=== PATIENT | male | born 1950 | race Caucasian/White ===

== ENCOUNTER 2023-04-04 20:01 | Inpatient (IN) | payer MEDICARE, SELFPAY ==
[2023-04-04 15:07] LABS: % Basophils 0.2 % (0-2); % Immature Granulocytes 1.1 % (0-0.5); % Monocytes 4.7 % (1.7-9.3); Absolute Immature Granulocytes 0.1 10^3/uL (0-0.05); Absolute Lymphocytes 0.5 10^3/uL (1.2-3.4); Absolute Monocytes 0.4 10^3/uL (0.1-0.6); Absolute Neutrophils 7.3 10^3/uL (1.4-6.5); Hematocrit 26.4 % (39.0-52.0); Mean Corp Hgb Conc. 34.1 g/dL (33.0-37.0); Mean Corpuscular Hgb 27.3 pg (27.0-31.0); Nucleated Red Blood Cells % 0 % (-); Red Cell Dist. Width 16.4 % (11.5-14.5); White Blood Cell Count 8.3 10^3/uL (4.8-10.8)
[2023-04-04 15:32] LABS: ALT (SGPT) 36 U/L (0-50); AST (SGOT) 74 U/L (17-59); Albumin 2.7 g/dl (3.5-5.0); Alkaline Phosphatase 88 U/L (38-126); Blood Urea Nitrogen 51 mg/dl (9-20); Calcium 7.8 mg/dl (8.4-10.2); Carbon Dioxide 20 mmol/L (22-30); Chloride 102 mmol/L (98-107); Glucose 139 mg/dl (70-99); Lipase 185 U/L (23-300); Potassium 4.7 mmol/L (3.5-5.1); Sodium 128 mmol/L (135-145); Total Bilirubin 2.3 mg/dl (0.2-1.3); Total Protein 6.3 g/dl (6.3-8.2); eGFR 35.02
[2023-04-04 15:39] LABS: Mean Platelet Volume 12.6 fL (7.4-10.4); Platelet Count 68 10^3/uL (130-400)
--- NOTE | 2023-04-04 18:05 | ED.GENMED ---
History of Present Illness
General
Chief Complaint: Weakness
Source: patient and family
Time Seen by Provider: 04/04/23 17:42
Travel History
Have you had any contact with someone who has COVID-19?: No
Do you have any symptoms of coronavirus? Fever > 100 degrees, chills, cough, shortness of breath, sore throat, loss of taste or smell, muscle aches, or headache?: No
History of Present Illness
History of Present Illness:
72-year-old male with past medical history of hypertension, recently diagnosed hepatitis C presenting to the emergency department with daughter who states that patient has been getting progressively worse since December but over the last week he has
had worsening generalized weakness, fatigue, lightheadedness, persistent nausea and vomiting, very dark urine, headaches and poor p.o. intake. Patient is also been experiencing increased lower extremity rash. Saw GI last week and had further lab
work done and was told everything looked okay except for a low hemoglobin for which patient was given a prescription for iron and was scheduled to undergo continued outpatient monitoring. Daughter believes that patient's hep C was activated from
recent cortisone injections in December when the symptoms started stating that he has had chronic back issues and had 2 separate cortisone injections during this time. Patient has also noticed some increased paresthesia and radicular pain in the
bilateral lower extremities. He denies any fevers, chills, rigors, chest pain or shortness of breath.
Past History
Past History
ED Past Medical History: HTN and Other (Hep C)
ED Past Surgical History: None
Social History
Tobacco: Non-smoker
Alcohol: None
Drug: None
Personal:
Living: with family
Employment: Employed
Review of Systems
Review of Systems
All Other Systems: ROS reviewed and negative except as documented in HPI and ROS
Phy Exam
Physical Exam
Physical Exam:
GENERAL: Alert , in no apparent distress
EYE: clear conjunctiva b/l
HEAD: NCAT
ENT: o/p clr, mmm.
CARDIAC: Regular rate and rhythm, no murmur.
LUNGS: Clear breath sounds bilaterally, no acute respiratory distress, no wheezes/rales/rhonchi
ABDOMEN: Soft, without focal tenderness, no r/g, no cvat, no hepatosplenomegaly
Rectal exam: Light brown stool, heme-negative
NEUROLOGICAL: Alert and oriented
SKIN: Warm and dry, petechial rash that is most pronounced in the bilateral lower extremities but extends into the upper thighs and abdomen
MUSCULOSKELETAL: No edema, well perfused.
PSYCH: Normal and appropriate interaction.
Scores
Heart Failure Risk
Heart Failure Risk Score: Not Applicable
Heart Score for Chest Pain Patients
STEMI patient?: Not applicable
Withdrawal Assessment of Alcohol
Withdrawal Assessment Completed?: Not applicable
Course
Orders/Labs/Results
Orders:
Orders
04/04/23 14:45
Electrocardiogram (*1) Urgent
Reason for Study: Abdominal Pain
EKG- Treatment ONCE
04/04/23 14:49
Complete Blood Count/With Diff Urgent
Comprehensive Metabolic Panel Urgent
Lipase Urgent
04/04/23 18:02
Electrocardiogram (*1) Urgent
Reason for Study: Fatigue / Weakness
EKG- Treatment ONCE
04/04/23 18:18
Oxycodone [Roxicodone] 5 mg PO NOW STA
04/04/23 18:43
Ammonia Urgent
CPK [Creatine Phosphokinase] Urgent
HIV Combo Urgent
LDH Urgent
PTT Urgent
Prothrombin Time Urgent
Urinalysis Reflex To Culture Urgent
Date Specimen was Collected: 04/04/23
Time Specimen was Collected: 18:30
Urine Microscopic Reflex Cult Urgent
04/04/23 19:10
Add On- LAB Routine
Tests Added?: iron, ferritin, tibc, vitamin b12, folate, LDH, haptoglobin
Add On- LAB Routine
Tests Added?: urine sodium, urine osmo, serum osmo
Abnormal Lab Results
04/04/23 04/04/23
14:49 18:43
RBC 3.30 L 10^6/uL
(4.70-6.10)
Hgb 9.0 L g/dL
(13.0-18.0)
Hct 26.4 L %
(39.0-52.0)
RDW 16.4 H %
(11.5-14.5)
Plt Count 68 L 10^3/uL
(130-400)
MPV 12.6 H fL
(7.4-10.4)
Abs Immat Gran (auto) 0.1 H 10^3/uL
(0-0.05)
Absolute Neuts (auto) 7.3 H 10^3/uL
(1.4-6.5)
Absolute Lymphs (auto) 0.5 L 10^3/uL
(1.2-3.4)
Immature Gran % 1.1 H %
(0-0.5)
Neutrophils % 88.0 H %
(42.2-75.2)
Lymphocytes % 6.0 L %
(20.5-51.1)
Sodium 128 L mmol/L
(135-145)
Carbon Dioxide 20 L mmol/L
(22-30)
BUN 51 H mg/dl
(9-20)
Creatinine 2.0 H mg/dL
(0.7-1.3)
Glucose 139 H mg/dl
(70-99)
Calcium 7.8 L mg/dl
(8.4-10.2)
Total Bilirubin 2.3 H mg/dl
(0.2-1.3)
AST 74 H U/L
(17-59)
Ammonia < 9 L umol/L
(9-30)
Lactate Dehydrogenase 295 H U/L
(120-246)
Albumin 2.7 L g/dl
(3.5-5.0)
Urine Ketones Trace A
(Negative)
Ur Occult Blood Reflex 4+ A
(Negative)
Urine Bilirubin 1+ A
(Negative)
Urine Urobilinogen 2+ A
(Neg - 1+)
Leukocyte Esterase Rfl Trace A
(Negative)
Urine RBC 16-20 A /HPF
(0-2)
Urine Bacteria (Reflex) Few A
(Negative)
Urine Albumin (Reflex) 1+ A
(Neg - Trace)
04/04/23 14:49
04/04/23 14:49
Vital Signs
Initial and Last Documented VS:
Initial Vital Signs
Temp
98.5 F
04/04/23 14:43
Last Documented Vital Signs
Temp
98.5 F
04/04/23 14:43
Dry Cleaning Machine Operator consulted with Physician
Dry Cleaning Machine Operator consulted with physician?: Yes
Name of Physician Consulted: Moiz
MDM/Problems Addressed
Differential Diagnosis Includes:
Liver failure, uncontrolled hepatitis, anemia, electrolyte disturbance, malignancy, less concern for acute infectious etiology
MDM/Problems Addressed:
72-year-old male presenting the emergency department for progressive decline over the last few months but acutely worse over the last week. Recent diagnosis of hepatitis C. Currently not on any medications for this. Lab work was initiated from
triage and reveals a downtrending hemoglobin from 11.5-9. Hemoglobin back in November was normal at 14.6. Patient also has a leftward shift. Sodium is 128. There is significant acute kidney injury. Bilirubin is also elevated. I added on
additional lab work for thrombocytopenia workup. Anticipate admission with consult by GI, nephrology and hematology anticipated.
*Pulse Oximetry
Patient hypoxic: no
*Critical Care Note
Total Time (30-74mins, 75-104mins- exclusive of procedures): Not Applicable
Patient Management
Discussion with other providers: Hospitalist and Shaper Setter
Escalation/DeEscalation of care consider admission/obs:
I notified GI as well as nephrology who will consult on the patient. Hospitalist is aware and accepts for continued evaluation and treatment.
ED Attending Note
-
Portions of this chart may have been created with voice recognition software.� Occasional wrong word or��sound alike� substitutions may have occurred due to the inherent limitations of voice recognition software.
Discharge Plan
Departure
Patient Disposition: Admit
Date of Disposition: 04/04/23
Time of Disposition: 18:28
Presentation/result/management discussed w/ accepting MD/DO: Hospitalist
Discharge Problem:
Hepatorenal syndrome, Thrombocytopenia, Hyponatremia
Prescriptions:
No Action
amlodipine 5 mg tablet
5 mg PO DAILY
oxycodone-acetaminophen 5-325 mg tablet
1 tab PO Q6H PRN (Reason: moderate pain)
Patient Comments:
04/04/2023: last filled 03/27/23, 20 tabs for 5 days from [id number]
diclofenac sodium 75 mg tablet,delayed release (DR/EC)
75 mg PO BID
benazepril 20 mg tablet
20 mg PO DAILY
cyclobenzaprine 5 mg tablet
5 mg PO BID PRN (Reason: muscle spasms)
Referrals:
Garfield Kelly MD [Family Provider] -
[2023-04-04] MEDS: ROXICODONE 5 MG PO (18:29)
[2023-04-04 19:02] LABS: Urine Albumin 1+ (Neg - Trace); Urine Bilirubin 1+ (Negative); Urine Character Clear (Clear); Urine Color Amber; Urine Glucose Negative (Negative); Urine Ketone Trace (Negative); Urine Leukocyte Trace (Negative); Urine Nitrite Negative (Negative); Urine Occult Blood 4+ (Negative); Urine Specific Gravity 1.015 (<1.030); Urine Urobilinogen 2+ (Neg - 1+)
[2023-04-04 19:07] LABS: Urine Granular Cast >15 /LPF (0); Urine Red Blood Cell 16-20 /HPF (0-2); Urine Squamous Cell 0-2 /LPF (Few)
[2023-04-04 19:08] LABS: Urine Bacteria Few (Negative)
[2023-04-04 19:15] LABS: Ammonia < 9 umol/L (9-30)
[2023-04-04 19:16] LABS: Creatine Phosphokinase 106 U/L (55-170); LDH 295 U/L (120-246)
--- NOTE | 2023-04-04 19:33 | HPS.HSE ---
Addendum entered and electronically signed by Ziggy Gomez MD 04/04/23 21:04:
72-year-old male with past medical history of hepatitis C diagnosed a few months ago, hypertension, distant history of IV drug use presenting with progressively worsening lower extremity edema and rash.� He has been having worsening weakness,
fatigue, lightheadedness and nausea and dark urine, chills and decreased p.o. intake and was diagnosed with hepatitis C a few months ago and has not started treatment yet.� He was seen by GI last week with further lab work.
On examination he has bilateral lower extremity nonblanching rash with purple discoloration and lower extreme edema.� Vitals unremarkable.� Labs show hyponatremia, ELLIE with creatinine of 2, normocytic anemia with hemoglobin of 9, platelets of 68.�
Urinalysis shows plus for occult blood, 16-20 RBC, greater than 15 granular casts.
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
including hemolysis labs, check coags to evaluate DIC/TTP, check urine sodium studies, C3/C4 level.� Check chest x-ray.� GI, hematology, nephrology consulted.
Hold benazepril/diclofenac.
Original Note:
Family Physician
-
Family Physician: Garfield Kelly
Chief Complaint
-
Weakness
History of Present Illness
Patient is a 72-year-old male past medical history of hypertension and recently diagnosed hepatitis C who presents with weakness, lower extremity and rash. Patient has had worsening decline over the last several months. He was finally diagnosed
with hepatitis C, but has yet to start treatment. He notes for the last few weeks he has developed increasing lower extremity edema and noted a rash on both of his legs. He denies fevers, sweats or chills. He denies cough or shortness of breath.
He denies nausea, vomiting, diarrhea, abdominal pain or abdominal distention.
Medical History
Past Medical History
Past Medical History: Reports Other
Additional Past Medical History:
Essential hypertension
Hepatitis C
Past Surgical History: Reports None
Social History
Tobacco: Non-smoker
Alcohol: None
Drug: Marijuana (Occasional) and Other (Former IV drug abuse, 50 years ago)
Family History
Family History: Not pertinent
Allergies / Home Medications
Allergies reflects when Allergies were last updated in [facility].
Home Medications with original date entered in [facility]
Allergy/Medication List:
Allergies
Allergy/AdvReac Type Severity Reaction Status Date / Time
No Known Allergies Allergy Verified 03/12/23 11:06
Home Medications
amlodipine 5 mg tablet 5 mg PO DAILY 04/04/23
benazepril 20 mg tablet 20 mg PO DAILY 04/04/23
cyclobenzaprine 5 mg tablet 5 mg PO BID PRN muscle spasms 04/04/23
diclofenac sodium 75 mg tablet,delayed release 75 mg PO BID 04/04/23
oxycodone-acetaminophen 5 mg-325 mg tablet 1 tab PO Q6H PRN moderate pain 04/04/23
Review of Systems
-
A 12 point ROS was completed and negative except as noted: Yes
Constitutional: Denies Fever or Chills
Respiratory: Denies Cough or Trouble Breathing
Abdomen/GI: Denies Abdominal Pain, Nausea, Vomiting or Diarrhea
Skin: Reports See HPI
Physical Exam
Vital Signs
Vital Signs
Temp
98.5 F
04/04/23 14:43
Physical Exam
General: Comfortable and Conversant
HEENT: NormoCephalic, Moist mucous membranes and Atraumatic
Respiratory: Crackles (Bilateral bases) and Non Labored Respirations
Cardiac: S1/S2 and Regular Rhythm; No Tachycardia or Murmur
GI: Soft, Non Tender and Non Distended
Rectal: Deferred by Provider
Musculoskeletal: No Clubbing, No Cyanosis and Other (+3 pitting edema bilateral lower ext)
Skin: Warm, Dry and Rash (non-blanching petechial like rash bilateral lower ext)
Neuro: Awake, Alert and Nonfocal/grossly intact
Laboratory Results
-
04/04/23 14:49
04/04/23 14:49
Laboratory Results
PT Cancelled 04/04/23 18:43
INR Cancelled 04/04/23 18:43
APTT Cancelled 04/04/23 18:43
Total Bilirubin 2.3 mg/dl (0.2-1.3) H 04/04/23 14:49
AST 74 U/L (17-59) H 04/04/23 14:49
ALT 36 U/L (0-50) 04/04/23 14:49
Alkaline Phosphatase 88 U/L (38-126) 04/04/23 14:49
Lipase 185 U/L (23-300) 04/04/23 14:49
Data Reviewed
-
Lab Data: Labs Reviewed by me
Impression/Plan
-
Acute Anemia with Thrombocytopenia
-Consult Hematology
-Check iron studies, vitamin b12, folate, LDH and haptoglobin
-Await coagulation tests
Acute Kidney Injury
-Consult Nephrology
-Urinalysis with 4+ Blood, 16-20 RBC and >15 granular casts consistent with ATN
-Hold diclofenac and benazepril
Hyponatremia
-Check urine electrolytes
Hepatitis C, recently diagnosed and has not yet started treatment
-Consult GI
-Trend LFTs
Essential Hypertension
-Continue amlodipine
-Benazepril on hold
Code Status: Full Code
[2023-04-04 19:58] LABS: Iron 23 ug/dl (49-181); LDH 258 U/L (120-246)
[2023-04-04 20:01] LABS: Osmolality Urine 442 mOsm/kg (300-900)
[2023-04-04 20:07] LABS: Percent Saturation 8 % (20-50); Total Iron Binding Capacity 277 ug/dl (261-462)
[2023-04-04 20:08] LABS: Osmolality Serum 285 mOsm/kg (275-300)
[2023-04-04 20:35] VITALS: BMI 29.6
[2023-04-04 20:50] LABS: Urine Sodium 15 mmol/L (30-90)
[2023-04-04 20:55] LABS: INR 1.36; PT 16.9 Sec (11.4-14.6)
[2023-04-04 20:56] LABS: APTT 35.4 Sec (23.4-35.0)
[2023-04-04 21:04] VITALS: BP 94/51
[2023-04-04 21:14] LABS: Folate 12.3 ng/ml (2.76-20); Vitamin B12 847 pg/ml (239-931)
[2023-04-04 21:29] VITALS: BP 110/50
[2023-04-04] MEDS: DILAUDID 0.25 MG IV (21:45)
[2023-04-04 23:44] VITALS: BP 118/52
[2023-04-05] MEDS: ZOFRAN 4 MG IV ×2 (00:13→17:28)
[2023-04-05 01:12] LABS: Complement C3 < 40 mg/dl (88-165)
[2023-04-05] MEDS: DILAUDID 0.25 MG IV (02:40)
[2023-04-05 05:45] VITALS: BMI 29.7
[2023-04-05 06:56] LABS: Hematocrit 25.6 % (39.0-52.0); Hemoglobin 8.5 g/dL (13.0-18.0); Mean Corp Hgb Conc. 33.2 g/dL (33.0-37.0); Mean Corpuscular Hgb 27.4 pg (27.0-31.0); Mean Corpuscular Volume 82.6 fL (80.0-94.0); Mean Platelet Volume 11.4 fL (7.4-10.4); Platelet Count 66 10^3/uL (130-400); Red Cell Dist. Width 16.4 % (11.5-14.5); White Blood Cell Count 7.7 10^3/uL (4.8-10.8)
[2023-04-05 07:00] VITALS: BP 107/52
[2023-04-05 07:20] LABS: ALT (SGPT) 34 U/L (0-50); AST (SGOT) 69 U/L (17-59); Albumin 2.3 g/dl (3.5-5.0); Alkaline Phosphatase 65 U/L (38-126); Blood Urea Nitrogen 58 mg/dl (9-20); Carbon Dioxide 22 mmol/L (22-30); Chloride 100 mmol/L (98-107); Estimated Creatinine Clearance 30 ml/min; Glucose 119 mg/dl (70-99); Sodium 131 mmol/L (135-145); Total Bilirubin 2.4 mg/dl (0.2-1.3); Total Protein 5.7 g/dl (6.3-8.2); eGFR 29.62
--- NOTE | 2023-04-05 09:06 | CON.ONC ---
Addendum entered and electronically signed by Luiz Warner DO 04/05/23 14:02:
Patient was independently examined and chart reviewed. Agree with the assessment and plan as outlined below.
Agree with evaluation for vasculitis and cryoglobulinemia as outlined below. Patient may need skin biopsy.
Would evaluate bilateral ultrasound to rule out DVT.
Original Note:
Impression
Impression
Untreated hepatitis C
Acute thrombocytopenia
Purpuric b/l lower extremity rash
B/l lower extremity edema
Acute kidney injury (baseline Creat 0.7-0.9)
Acute normocytic anemia (baseline Hgb 14-16)
Neuropathy/paraesthesia
Generalized weakness
Hyponatremia
Hypocalcemia
Hypoalbuminemia
Microscopic hematuria
Acute neutrophilia
Unintentional weight loss ~20 lbs since 12/2022
Chronic lumbar back pain s/p cortisone injection 02/2023
Early satiety w/ nausea/vomiting
Hx Hepatosplenomegaly
Hypotension
Plan
Plan
04/04 CXR: Small bilateral pleural effusion and bibasilar atelectasis. Cardiomegaly.
2 Hgb 8.5, Hct 25.6, MCV 82.6, RDW 16.4, PLT 66, Retic count 2.3
Transfuse as needed to maintain Hgb >7, PLT >20
Baseline Hgb 14-16 per history
PLTs were within baseline 03/12/23. Acute drop from 174 --> 68
RAMON/SPEP, cryoglobulin, QIGs and additional lab studies are pending
Consider review of peripheral blood smear
2 Creat 2.3, Urinalysis: +RBC: 16-20/hpf
Nephrology consult
Coag panel: PTT 35.4. PT 16.9. INR 1.36, d-dimer 1.84
Monitor for DIC
Supportive care, pain/nausea management
Falls precautions
GI consult
We will follow along.
Patient History
History of Present Illness
Basilio Mayer is a 72 year old male who presented to the ER last evening, 04/04, with reports of generalized weakness, worsening fatigue, lightheadedness, persistent N/V, dark urine, headaches, and poor PO intake. He has noticed a worsening lower
extremity rash as well as paraesthesia and radicular pain in b/l legs. Of note, he has history of chronic lower back pain/spinal stenosis. He saw GI outpatient and was provided a prescription for oral iron due to anemia on CBC. He was recently
diagnosed with Hepatitis C which has not been treated. He was seen in the ER a few weeks prior, 03/12/23, with similar complaints of weakness, vomiting, unintentional weight loss of 20lbs and diarrhea. CT imaging, at that time, showed
hepatosplenomegaly and lab work revealed elevated LFTs. Lyme testing was negative. Daughter is concerned about patient's decline over the past few months. He has been admitted for further evaluation and treatment.
Past-Medical/Surgical History
Hepatitis C recently diagnosed/untreated
Hypertension
Remote hx of IVDA >50 years ago
Hx 2cm calcified RLL lung nodule
Fatty liver
Simple right renal cyst
Chronic lower back pain s/p cortisone injection 02/2023
Hx spinal stenosis
Patient Medication
Medication Instructions Recorded Confirmed Last Taken Type
amlodipine 5 mg tablet 5 mg PO DAILY 04/04/23 04/04/23 04/04/23 History
benazepril 20 mg tablet 20 mg PO DAILY 04/04/23 04/04/23 04/04/23 History
cyclobenzaprine 5 mg tablet 5 mg PO BID PRN muscle spasms 04/04/23 04/04/23 Unknown History
diclofenac sodium 75 mg 75 mg PO BID 04/04/23 04/04/23 Unknown History
tablet,delayed release
oxycodone-acetaminophen 5 mg-325 1 tab PO Q6H PRN moderate pain 04/04/23 04/04/23 04/03/23 History
mg tablet
Active Medications
Generic Name Dose Route Start Last Admin
Trade Name Jenny ODDD Reason Stop Dose Admin
Amlodipine Besylate 5 mg 04/05/23 08:00 04/05/23 08:16
Amlodipine 5 Mg Tablet PO 05/03/23 07:59 Not Given
DAILY VICTOR M
Sodium Chloride 0 flush 04/04/23 21:00
Sodium Chloride 0.9% (Flush) Syringe IV 05/02/23 20:59
PER PROTOCOL VICTOR M
Review of Systems
-
History Source: Patient and Records
Constitutional: Reports No Appetite, Fatigue and Weakness; Denies Fever or Chills
EENT: Reports No Symptoms
Respiratory: Reports No Symptoms
Cardiac: Reports No Symptoms
Breast: Reports N/A
: Reports Dark Urine (hematuria)
Musculoskeletal: Reports Muscle Pain and Edema
Skin: Reports Rash
Neuro: Reports Weakness
Endocrine: Reports No Symptoms
Hematologic/Lymphatic: Reports Bleeding and Bruising
Allergy / Immunology: Reports No Symptoms
Psych: Reports No Symptoms
Physical Exam
-
Patient is resting in bed. He states he needs to urinate. Urinal at bedside with very dark/bloody appearing urine. He reports pain in bilateral lower extremities. Right leg pain is worse than the left.
General: Well Developed, Well Nourished, Comfortable, Pain, Conversant and Appears Chronically Ill; Negative Fever, Chills or Sweats
HEENT: Negative Jaundice
Cardiology: Normal Sinus Rhythm
Pulmonary: Clear
GI: Normal Bowel Sounds and Distended
Genito-Urinary: Bloody Urine
Musculoskeletal: Edema, Right Lower Extrem (+3) and Edema, Left Lower Extrem (+3)
Extremities: Pulses Present and Edema
Neurology: Non Focal
Skin: Rash
Hematologic / Lymphatic: Other (diffuse petechial rash b/l LEs from knees to toes. non blanching); Negative No Petechiae
Psych: Calm
Labs
Lab Results
WBC 7.7 10^3/uL (4.8-10.8) 04/05/23 06:32
RBC 3.10 10^6/uL (4.70-6.10) L 04/05/23 06:32
Hgb 8.5 g/dL (13.0-18.0) L 04/05/23 06:32
Hct 25.6 % (39.0-52.0) L 04/05/23 06:32
MCV 82.6 fL (80.0-94.0) 04/05/23 06:32
MCH 27.4 pg (27.0-31.0) 04/05/23 06:32
MCHC 33.2 g/dL (33.0-37.0) 04/05/23 06:32
RDW 16.4 % (11.5-14.5) H 04/05/23 06:32
Plt Count 66 10^3/uL (130-400) L 04/05/23 06:32
MPV 11.4 fL (7.4-10.4) H 04/05/23 06:32
Abs Immat Gran (auto) 0.1 10^3/uL (0-0.05) H 04/04/23 14:49
Absolute Neuts (auto) 7.3 10^3/uL (1.4-6.5) H 04/04/23 14:49
Absolute Lymphs (auto) 0.5 10^3/uL (1.2-3.4) L 04/04/23 14:49
Absolute Monos (auto) 0.4 10^3/uL (0.1-0.6) 04/04/23 14:49
Absolute Eos (auto) 0.0 10^3/uL (0-0.7) 04/04/23 14:49
Absolute Basos (auto) 0.0 10^3/uL (0-0.2) 04/04/23 14:49
Immature Gran % 1.1 % (0-0.5) H 04/04/23 14:49
Neutrophils % 88.0 % (42.2-75.2) H 04/04/23 14:49
Lymphocytes % 6.0 % (20.5-51.1) L 04/04/23 14:49
Monocytes % 4.7 % (1.7-9.3) 04/04/23 14:49
Eosinophils % 0.0 % (0-6) 04/04/23 14:49
Basophils % 0.2 % (0-2) 04/04/23 14:49
Creatinine 2.3 mg/dL (0.7-1.3) H 04/05/23 06:32
Vital Signs
Vital Signs
Temp Pulse Resp BP Pulse Ox
98.2 F 85 14 107/51 94
04/04/23 23:44 04/04/23 23:44 04/04/23 23:44 04/05/23 08:16 04/04/23 23:44
[2023-04-05 10:34] LABS: Reticulocyte Count 2.3 % (0.4-2.8)
[2023-04-05 10:41] LABS: Fibrinogen 352 MG/DL (199-459)
[2023-04-05 10:44] LABS: D-Dimer 1.84 ug/mlFEU (0.00-0.50)
[2023-04-05 10:53] LABS: Uric Acid 8.9 mg/dl (3.5-8.5)
[2023-04-05 11:24] LABS: TSH 3.42 uIU/ml (0.47-4.68)
[2023-04-05 11:34] VITALS: BP 110/47
[2023-04-05 11:38] VITALS: BP 110/47
[2023-04-05 11:47] LABS: HDL Cholesterol 10 mg/dl; Triglycerides 181 mg/dl (10-149)
[2023-04-05 12:12] LABS: LDL Cholesterol, Direct 36 mg/dl
[2023-04-05] MEDS: NSS 1000 IV (12:17)
[2023-04-05] MEDS: ROXICODONE 5 MG PO ×2 (12:18→22:15)
--- NOTE | 2023-04-05 13:14 | W.PN.HOSP.TC ---
Addendum entered and electronically signed by Gume Dennis MD 04/05/23 14:29:
Hold Norvasc
Original Note:
Today's Communication/Plan
-
Serologies ordered
Check sed rate and CRP
Ultrasound of the lower extremities and Ultrasound of the kidneys
Bladder scan
Urine protein creatinine ratio
Assessment / Plan
Assessment / Plan
72-year-old male with history of hepatitis C diagnosed a couple years ago. Patient has not taken any treatment for unknown reasons. Per daughter his PCP has been monitoring his blood test. For the past few weeks he has been developing increased
lower extremity edema and later on developed a rash. His appetite has been very poor and p.o. intake has gone down. He denies any abdominal pain. Patient has also noted dark urine for quite some time now.
On examination not in any acute distress
Patient is seated in the chair
Bilateral lower extremity edema noted
Maculopapular rash bilateral lower EXTR which also all the way up to the abdomen none on the chest or upper torso or arms.
Neuro exam is mostly nonfocal
# Maculopapular rash
Differentials
Cryoglobulinemia
vasculitis-possible IgA type or ANCA
Complement levels are low
Infections
Add on cryoglobulin levels
Serologies
Blood culture
May need a skin biopsy
# Acute kidney injury
Urinalysis with RBC and granular casts
4+ blood
Hold diclofenac and benazepril
IV fluids
Nephrology consultation
Bladder scan
Ultrasound of the kidneys
May need renal biopsy
Check IgA, ANCA, CRP and sed rate, anti-GBM LAURI,
# Hyponatremia
# Acute thrombocytopenia
# Anemia
SPEP and UPEP
LDH slightly elevated check haptoglobin levels
Check reticulocyte count
# Hepatosplenomegaly
# Hepatitis C untreated-discussed with the patient and daughter at bedside that this can lead up to cirrhosis and liver failure cancer and he needs to seek treatment
# Hypertension
Hold benazepril
# Hypocalcemia-check Vit D level
# Elevated AST- Follow
# Poor p.o. intake and deconditioning
Unintentional weight loss 20 pounds since December
Check HIV
Patient ever has had a colonoscopy because he chose not to
# Chronic back pain
Spinal stenosis
With history of cortisone injection February 2023
# Hypoalbuminemia
# History of drug abuse in the past more than 50 years ago
# History of 2 cm calcified right lower lobe lung nodule
# Fatty liver
# CODE STATUS-full code
Discussed with pharmacist
Discussed with daughter at bed side
time spent 53 min
Anticipated Discharge: > 48 hours
Subjective/Interval History
-
Date of Service: April 05, 2023
Objective Data
-
Labs:
Laboratory Results
04/05/23
06:32
WBC 7.7
Hgb 8.5 L
Hct 25.6 L
Plt Count 66 L
Sodium 131 L
Potassium 5.0
Chloride 100
Carbon Dioxide 22
BUN 58 H
Creatinine 2.3 H
Glucose 119 H
Calcium 8.0 L
Total Bilirubin 2.4 H
AST 69 H
ALT 34
Alkaline Phosphatase 65
Vital Signs:
Vital Signs
Temp Pulse Resp BP Pulse Ox
98.1 F 81 16 107/51 92
04/05/23 07:00 04/05/23 07:00 04/05/23 07:00 04/05/23 08:16 04/05/23 07:00
I&O
04/04/23 04/05/23 04/06/23
06:59 06:59 06:59
Intake Total 240 / 240
Output Total 100 / 100
Balance 140 / 140
--- NOTE | 2023-04-05 14:01 | CON.MD ---
Consultation - Medical
-
Assessment:
ELLIE
Anemia/Thrombocytopenia
hypocomplementemia
Purpuric rash
Hepatitis C (untreated)
Plan:
- patient most likely has underlying nephritic syndrome (ELLIE, 4+ blood, low complements, purpuric rash, known untreated hepatitis C)
- hold nephrotoxins and antihypertensives(amlodipine/ROMAN/ NSAIDS)
- kidney ultrasound pending
- ordered UPCR and microalb: Cr ratio
- we will follow up serologic workup: HIV, ESR, CRP, anti GBM, ANCA, LAURI with reflex, cryoglobulin, SPEP, UPEP, LDH and hapto pending
- the patient would likely benefit from a kidney biopsy, await serologies prior to final decision.
[2023-04-05 14:06] LABS: IgA 464 mg/dl (70-400)
[2023-04-05 14:23] VITALS: BMI 29.7
[2023-04-05 15:00] VITALS: BP 110/52
--- NOTE | 2023-04-05 15:19 | CM ---
met with patient at bedside.patient lives with his daughter/poa in house with 3 anusha,his bed and bath is on the lfirst level,he ambulates with a cane and walker.he is indendepent in showering,is pcp is dr tracee russ and he uses [facility]
for his meds.pthas never had a vn or been to ip r
Plan is dc home with no home care.
--- NOTE | 2023-04-05 15:24 | CON.GI ---
Consultation
-
Date/Time Consultation Requested: 04/05/23 2:00pm
Date/Time Consultation Performed: 04/05/23 3:24pm
Requesting Provider: Gume Dennis
Performing Provider: Iglesia Rueda
Reason for Consultation: Hepatitis C
Medical History
Chief Complaint / HPI
Chief Complaint: Hepatitis C
History of Present Illness:
Patient is a 72 yo male who presents with LE edema for two weeks and LE rash for one week. For the last several months he has had decreased appetite, nausea, fatigue, 20# weight loss. He went to ER 03/12/[address] abd/pelvis was done
showing hepatosplenomegaly. He has hx Hep C dx'd couple years ago. He used IVDA around age 23 for 8 years then quit. Attempt at treatment in past were unsuccessful due to insurance issues. He saw Dr Briggs 03/21 for f/u from the ER. He was scheduled
for EGD for variceal screening. Fibroscan was done- 14.2 kPa (F4-cirrhosis). HCV viral load 8,590,000 and genotype 1a.
Past Medical History
Past Medical History: HTN and Other (Hepatitis C)
Past Surgical History: Tonsilectomy (L5-S1 epidural steroid injection)
Social History
Tobacco: Non-Smoker
Alcohol: Occasional
Drug: Former User
Family History
Family History: Reviewed & Not Pertinent
Allergies / Home Medications
Allergy/AdvReac Type Severity Reaction Status Date / Time
No Known Allergies Allergy Verified 03/12/23 11:06
Medication Instructions Recorded
amlodipine 5 mg tablet 5 mg PO DAILY Blood Pressure 04/04/23
benazepril 20 mg tablet 20 mg PO DAILY Blood Pressure 04/04/23
cyclobenzaprine 5 mg tablet 5 mg PO BID PRN muscle spasms 04/04/23
diclofenac sodium 75 mg 75 mg PO BID Pain 04/04/23
tablet,delayed release
oxycodone-acetaminophen 5 mg-325 1 tab PO Q6H PRN moderate pain 04/04/23
mg tablet
Review of Systems
-
All other systems: A 12 pt ROS was Negative except as stated above in HPI
Vital Signs
Temp Pulse Resp BP Pulse Ox
98.1 F 81 16 107/51 92
04/05/23 07:00 04/05/23 07:00 04/05/23 07:00 04/05/23 08:16 04/05/23 07:00
Physical Exam
Exam
General: No Apparent Distress
HEENT: Atraumatic
Respiratory: Non Labored Respirations
GI: Soft, Non Tender and Non Distended
Musculoskeletal: Edema (b/l LE edema)
Skin: Rash (b/l LE purpuric rash)
Neuro: Sedated
Results
WBC 7.7 10^3/uL (4.8-10.8) 04/05/23 06:32
Hgb 8.5 g/dL (13.0-18.0) L 04/05/23 06:32
Hct 25.6 % (39.0-52.0) L 04/05/23 06:32
MCV 82.6 fL (80.0-94.0) 04/05/23 06:32
Plt Count 66 10^3/uL (130-400) L 04/05/23 06:32
Absolute Neuts (auto) 7.3 10^3/uL (1.4-6.5) H 04/04/23 14:49
PT 16.9 Sec (11.4-14.6) H 04/04/23 20:37
INR 1.36 04/04/23 20:37
APTT 35.4 Sec (23.4-35.0) H 04/04/23 20:37
Sodium 131 mmol/L (135-145) L 04/05/23 06:32
Potassium 5.0 mmol/L (3.5-5.1) 04/05/23 06:32
Chloride 100 mmol/L (98-107) 04/05/23 06:32
Carbon Dioxide 22 mmol/L (22-30) 04/05/23 06:32
BUN 58 mg/dl (9-20) H 04/05/23 06:32
Creatinine 2.3 mg/dL (0.7-1.3) H 04/05/23 06:32
Calcium 8.0 mg/dl (8.4-10.2) L 04/05/23 06:32
Total Bilirubin 2.4 mg/dl (0.2-1.3) H 04/05/23 06:32
AST 69 U/L (17-59) H 04/05/23 06:32
ALT 34 U/L (0-50) 04/05/23 06:32
Alkaline Phosphatase 65 U/L (38-126) 04/05/23 06:32
Lipase 185 U/L (23-300) 04/04/23 14:49
Diagnostic Image Results:
Prior GI Procedures:
EGD:
Colonoscopy:
Assessment / Plan
-
Summary: 72yo male presents with LE edema and rash over last couple weeks and Cr 2.0. He has hx Hep C due to IVDA in his 20's and recent Fibroscan suggests F4 disease, cirrhosis. CT AP 03/12/23 shows hepatosplenomegaly. C3 <40 and C4 <8.
Cryoglobulins pending. TB 2.3, AST 74, ALT 36, AP 88. Ammonia <9. Plt 68. INR 1.36. Denies abd pain, GI bleeding
Impression:
LE edema and rash
ARF Cr 2.0 on admission
Low complement suspicious for cryoglobulinemia
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 MELD 3.0 = 20
Hx IVDA
Recommendations:
Await cryoglobulin levels
Follow Cr
No signs of GI vasculitis complications (pain, bleeding) at this time
Will need rx for Hep C- can be arranged with our office after d/c but asked him to make appt with Dr Enriquez since his treatment is complicated by cirrhosis, renal insufficiency possible cryoglobulinemia
Follow up with Dr Briggs after d/c
Will follow
-
-
Thank you for consultation and allowing me to participate in the patient's care. Please call the data collection technician GI physician during the after hours with any questions or concerns.
[2023-04-05 17:09] LABS: Erythrocyte Sed Rate 46 mm/hour (0-20)
[2023-04-05 18:20] LABS: Protein/creatinine Ratio 0.5; Urine Protein 55 mg/dl
[2023-04-05 20:46] LABS: Vitamin D, 25-OH*** 77.7 ng/mL (30-80)
[2023-04-05 21:19] LABS: Vitamin B12 813 pg/ml (239-931)
[2023-04-05 22:58] LABS: Microalbumin, Random Urine 14.9 mg/dl (0.6-1.7); Microalbumin/creatinine Ratio 136.1 mg/g
[2023-04-05 23:30] VITALS: BP 112/52
[2023-04-06 05:30] VITALS: BMI 29.0
[2023-04-06 07:00] VITALS: BP 106/65
--- NOTE | 2023-04-06 08:27 | W.PN.ONC ---
Today's Communication / Plan
-
CBC with diff daily
CBC and CMP pending this AM
Transfuse as needed to maintain Hgb >7, PLT >20
Serologic workup in progress, additional labs pending
May need skin and/or kidney biopsy
Await cryoglobulin levels
Supportive care, pain/nausea management
Falls precautions
Follow up with Dr. Briggs (GI) for treatment of HepC upon discharge
We will follow.
Impression
Impression
Hepatitis C (untreated)
Acute thrombocytopenia
Petechial lower extremity rash
Lower extremity edema
ELLIE (baseline Creat 0.7-0.9)
Cryoglobulinemia
Vasculitis
IgA elevation
Nephrotic syndrome
Normocytic anemia (baseline Hgb 14-16)
Hyponatremia
Hypocalcemia
Hypoalbuminemia
Microscopic hematuria
Unintentional weight loss ~20 lbs since 12/2022
Hepatosplenomegaly
Subjective/Objective
Subjective/Objective
Patient is resting in bed. He appears to be more comfortable today. He notes pain in the right leg worse than the left. he denies fever, chills, nausea, vomiting. He reports his urine is 'very dark'
Vital Signs:
Vital Signs
Temp Pulse Resp BP Pulse Ox
99.0 F 100 18 112/52 93
04/05/23 23:30 04/05/23 23:30 04/05/23 23:30 04/05/23 23:30 04/05/23 23:30
physical exam:
aaox3, calm, scleral icterus
HRR, lungs clear on RA
hypoactive bowel sounds
+3 pitting edema bilateral LEs
diffuse nonblanching petechial rash b/l legs
Lab Results:
Laboratory Data
WBC 7.7 10^3/uL (4.8-10.8) 04/05/23 06:32
Hgb 8.5 g/dL (13.0-18.0) L 04/05/23 06:32
Plt Count 66 10^3/uL (130-400) L 04/05/23 06:32
PT 16.9 Sec (11.4-14.6) H 04/04/23 20:37
INR 1.36 04/04/23 20:37
APTT 35.4 Sec (23.4-35.0) H 04/04/23 20:37
eGFR 29.62 04/05/23 06:32
04/05/23 Renal US: No sonographic evidence for hydronephrosis.
04/05/23 PV US: No sonographic evidence for lower extremity venous thrombosis.
Orders
Orders
Orders From Last 24 Hours
04/05/23 10:11
ANCA - MPO/PR3 Ab Profile [S] Urgent
C-Reactive Protein Urgent
D-Dimer Urgent
Fibrinogen Urgent
Reticulocyte Count Urgent
TSH Urgent
Uric Acid Urgent
04/05/23 11:16
Cryoglobulin [S] Urgent
HDL Cholesterol Urgent
IgA Urgent
LDL Cholesterol, Direct Urgent
Monoclonal Protein Qnt,IMM,FLC [S] Urgent
Triglycerides Urgent
04/05/23 12:04
Type+Screen Routine
04/06/23 11:16
AFP Male/Tumor Marker Urgent
[2023-04-06] MEDS: NSS 1000 IV (08:39)
[2023-04-06 09:03] LABS: AFP Male/Tumor Marker 3.36 ng/ml
[2023-04-06] MEDS: ROXICODONE 5 MG PO ×3 (10:29→23:33)
--- NOTE | 2023-04-06 11:42 | W.PN.NEPH.PH ---
Today's Communication / Plan
-
await bx sunday
Assessment/Plan
-
Assessment:
ELLIE
Anemia/Thrombocytopenia
hypocomplementemia
Purpuric rash
Hepatitis C (untreated)
Plan:
-check HCV serologies
-await renal bx sunday
-heme opinion on plt count and renal bx sunday
-await serologies
-follow BMP
-continue IVF today as po intake poor
-
-
Date of Service: April 06, 2023
CC / HPI / ROS
-
Chief Complaint:
ELLIE
History of Present Illness:
ELLIE/Cr up to 2.3
painful purpura persists
BP stable
Plts low at 66
Review of Systems:
no CP/SOB
Labs
-
Labs:
eGFR 29.62 04/05/23 06:32
Physical Exam
-
Vital Signs:
Vital Signs
Temp Pulse Resp BP Pulse Ox
97.6 F 57 16 106/65 97
04/06/23 07:00 04/06/23 07:00 04/06/23 07:00 04/06/23 07:00 04/06/23 07:00
Cardiovascular:: Regular rate and rhythm
Respiratory:: Bilateral: Coarse
Lung Excursion:: Normal
Abdomen:: Nontender and Soft
Bowel Sounds:: Normal
Extremity Edema:: +3: Bilateral:
--- NOTE | 2023-04-06 11:59 | W.PN.GI.CBS2 ---
Addendum entered and electronically signed by Anita Burkett MD 04/06/23 16:09:
I saw and examined the patient.
The CUSTOMER INSIGHT ANALYST's note was reviewed and I agree with the note.
Comment: Purpuric rash on lower extremities with edema and ELLIE with underlying history of cirrhosis from hepatitis C genotype Ia most likely could be cryoglobulinemia for renal biopsy on Sunday per renal. He will follow-up with Dr. Briggs after DC for
initiating hepatitis C treatment and also has appointment with Dr. Enriquez family requesting to move up the appointment will reach out to Dr. Enriquez
Original Note:
Today's Communication / Plan
-
Assessment / Plan
-
Summary: 72yo male presents with LE edema and rash over last couple weeks and Cr 2.0. He has hx Hep C due to IVDA in his 20's and recent Fibroscan suggests F4 disease, cirrhosis. CT AP 03/12/23 shows hepatosplenomegaly. C3 <40 and C4 <8.
Cryoglobulins pending. TB 2.3, AST 74, ALT 36, AP 88. Ammonia <9. Plt 68. INR 1.36. Denies abd pain, GI bleeding.
Impression:
LE edema and rash
ARF Cr 2.0 on admission
Low complement suspicious for cryoglobulinemia
Hep C cirrhosis, untreated
No hx decompensating event. MELD 3.0 = 20 (today's labs still pending)
Hx IVDA
Recommendations:
Await cryoglobulin levels
Follow Cr. Nephrology consulted and pt to have renal biopsy
No signs of GI vasculitis complications (pain, bleeding) at this time
Will need rx for Hep C- can be arranged with our office after d/c and would recommend appt with Hepatology, Dr Enriquez, since his treatment is complicated by cirrhosis, renal insufficiency possible cryoglobulinemia
Follow up with Dr Briggs after d/c
Will follow
Subjective
Subjective
Date of Service: April 06, 2023
no abd pain, fever, chills, n/v/d or rectal bleeding
Objective
Data Reviewed
Laboratory Data:
Laboratory Results
PT 16.9 Sec (11.4-14.6) H 04/04/23 20:37
INR 1.36 04/04/23 20:37
APTT 35.4 Sec (23.4-35.0) H 04/04/23 20:37
Total Bilirubin 2.4 mg/dl (0.2-1.3) H 04/05/23 06:32
AST 69 U/L (17-59) H 04/05/23 06:32
ALT 34 U/L (0-50) 04/05/23 06:32
Alkaline Phosphatase 65 U/L (38-126) 04/05/23 06:32
Lipase 185 U/L (23-300) 04/04/23 14:49
Vital Signs and I&O:
Vital Signs
Temp Pulse Resp BP Pulse Ox
97.6 F 57 16 106/65 97
04/06/23 07:00 04/06/23 07:00 04/06/23 07:00 04/06/23 07:00 04/06/23 07:00
I&O
04/05/23 04/06/23 04/07/23
06:59 06:59 06:59
Intake Total 240 / 240 240 / 240
Output Total 100 / 100 800 / 800
Balance 140 / 140 -560 / -560
Physical Exam
Physical Exam
GI: Soft, Non Distended, Non Tender and Normal Bowel Sounds
Skin' +purpuric rash, most pronounced on bilateral lower extremities, faintly extending to trunk
[2023-04-06 12:08] LABS: % Basophils 0.3 % (0-2); % Eosinophils 0.2 % (0-6); % Immature Granulocytes 1.1 % (0-0.5); % Lymphocytes 10.9 % (20.5-51.1); % Monocytes 5.7 % (1.7-9.3); % Neutrophils 81.8 % (42.2-75.2); Absolute Immature Granulocytes 0.1 10^3/uL (0-0.05); Absolute Lymphocytes 0.7 10^3/uL (1.2-3.4); Absolute Monocytes 0.4 10^3/uL (0.1-0.6); Absolute Neutrophils 5.3 10^3/uL (1.4-6.5); Hematocrit 23.9 % (39.0-52.0); Hemoglobin 8.1 g/dL (13.0-18.0); Mean Corp Hgb Conc. 33.9 g/dL (33.0-37.0); Mean Corpuscular Hgb 27.6 pg (27.0-31.0); Mean Corpuscular Volume 81.6 fL (80.0-94.0); Mean Platelet Volume 12.8 fL (7.4-10.4); Nucleated Red Blood Cells % 0 % (-); Platelet Count 85 10^3/uL (130-400); Red Blood Cell Count 2.93 10^6/uL (4.70-6.10); Red Cell Dist. Width 16.5 % (11.5-14.5); White Blood Cell Count 6.5 10^3/uL (4.8-10.8)
[2023-04-06 12:20] LABS: ALT (SGPT) 30 U/L (0-50); AST (SGOT) 56 U/L (17-59); Albumin 2.3 g/dl (3.5-5.0); Alkaline Phosphatase 57 U/L (38-126); Blood Urea Nitrogen 73 mg/dl (9-20); Calcium 7.7 mg/dl (8.4-10.2); Carbon Dioxide 20 mmol/L (22-30); Chloride 101 mmol/L (98-107); Estimated Creatinine Clearance 24 ml/min; Glucose 119 mg/dl (70-99); Potassium 5.1 mmol/L (3.5-5.1); Sodium 130 mmol/L (135-145); Total Bilirubin 2.6 mg/dl (0.2-1.3); Total Protein 5.6 g/dl (6.3-8.2); eGFR 22.42
--- NOTE | 2023-04-06 12:30 | W.PN.HOSP.TC ---
Today's Communication/Plan
-
Renal Bx sunday
Over 50,000 okay for procedures, but will have hematology commend.( But has uremia also)
Watch Platelet count and make sure adequate before proceeding.
Assessment / Plan
Assessment / Plan
72-year-old male with history of hepatitis C diagnosed a couple years ago. Patient has not taken any treatment for unknown reasons. Per daughter his PCP has been monitoring his blood test. For the past few weeks he has been developing increased
lower extremity edema and later on developed a rash. His appetite has been very poor and p.o. intake has gone down. He denies any abdominal pain. Patient has also noted dark urine for quite some time now.
On examination not in any acute distress
Patient is seated in the chair
Bilateral lower extremity edema noted
Maculopapular rash bilateral lower EXTR which also all the way up to the abdomen none on the chest or upper torso or arms.
Neuro exam is mostly nonfocal
# Maculopapular rash
Differentials
Cryoglobulinemia,vasculitis,Infections
Complement levels are low
cryoglobulin levels pending
Serologies
Blood culture
May need a skin biopsy
# Acute kidney injury
Urinalysis with RBC and granular casts
4+ blood
Hold diclofenac and benazepril
IV fluids
Nephrology following
Bladder scan
Ultrasound of the kidneys- Neg
Renal biopsy Sunday
Check IgA, ANCA, CRP and sed rate, anti-GBM LAURI,
# Hyponatremia
# Acute thrombocytopenia
# Anemia
SPEP and UPEP
LDH slightly elevated check haptoglobin levels
# Hepatosplenomegaly
# Hepatitis C untreated-discussed with the patient and daughter at bedside that this can lead up to cirrhosis and liver failure cancer and he needs to seek treatment
# Hypertension
Hold benazepril and Norvasc
# Hypocalcemia
# Elevated AST- Follow
# Poor p.o. intake and deconditioning
Unintentional weight loss 20 pounds since December
Check HIV
Patient ever has had a colonoscopy because he chose not to
# Chronic back pain
Spinal stenosis
With history of cortisone injection February 2023
# Hypoalbuminemia
# History of drug abuse in the past more than 50 years ago
# History of 2 cm calcified right lower lobe lung nodule
# Fatty liver
# CODE STATUS-full code
Spoke to daughter and updated.
Anticipated Discharge: > 48 hours
Subjective/Interval History
-
Date of Service: April 06, 2023
Objective Data
-
Labs:
Laboratory Results
04/06/23
11:50
WBC 6.5
Hgb 8.1 L
Hct 23.9 L
Plt Count 85 L D
Sodium 130 L
Potassium 5.1
Chloride 101
Carbon Dioxide 20 L
BUN 73 H
Creatinine 2.9 H
Glucose 119 H
Calcium 7.7 L
Total Bilirubin 2.6 H
AST 56
ALT 30
Alkaline Phosphatase 57
Vital Signs:
Vital Signs
Temp Pulse Resp BP Pulse Ox
97.6 F 57 16 106/65 97
04/06/23 07:00 04/06/23 07:00 04/06/23 07:00 04/06/23 07:00 04/06/23 07:00
I&O
04/05/23 04/06/23 04/07/23
06:59 06:59 06:59
Intake Total 240 / 240 240 / 240
Output Total 100 / 100 800 / 800
Balance 140 / 140 -560 / -560
[2023-04-06 13:37] LABS: Hepatitis C Antibody Reactive (Negative)
[2023-04-06 15:12] VITALS: BP 108/52
--- NOTE | 2023-04-06 15:12 | CM ---
renal bx on sunday.dmet with dght and discussed assistance with drug coverage since patient does not have any coverage through medicare.i also spoke with patient about calling the drug oil pump station operator chief who sometimes have paientt assistance programs..
patient will discharge home with o home care needs.patient has declined hcs.
Plan discharge home with no hcs.
[2023-04-06 15:52] LABS: Hepatitis B Surface Antibody Indeterminate
[2023-04-06 15:52] LABS: HIV Combo Negative (Negative)
[2023-04-06 16:12] VITALS: BP 114/54; PULSE 91; O2SAT 94
[2023-04-06 16:19] LABS: Hepatitis B Surface Antigen Negative (Negative)
[2023-04-06] MEDS: ZOFRAN 4 MG IV (19:34)
[2023-04-06 23:37] VITALS: BP 135/59
[2023-04-07] MEDS: NSS 1000 IV ×2 (02:01→09:57)
[2023-04-07 05:08] LABS: Haptoglobin <10 mg/dL (30-200)
[2023-04-07 05:49] VITALS: BMI 29.4
[2023-04-07 07:02] LABS: % Basophils 0.1 % (0-2); % Eosinophils 0.1 % (0-6); % Immature Granulocytes 0.8 % (0-0.5); % Lymphocytes 12.1 % (20.5-51.1); % Monocytes 6.1 % (1.7-9.3); % Neutrophils 80.8 % (42.2-75.2); Absolute Immature Granulocytes 0.1 10^3/uL (0-0.05); Absolute Lymphocytes 0.9 10^3/uL (1.2-3.4); Absolute Monocytes 0.4 10^3/uL (0.1-0.6); Absolute Neutrophils 5.7 10^3/uL (1.4-6.5); Hematocrit 25.2 % (39.0-52.0); Hemoglobin 8.2 g/dL (13.0-18.0); Mean Corp Hgb Conc. 32.5 g/dL (33.0-37.0); Mean Corpuscular Hgb 27.5 pg (27.0-31.0); Mean Corpuscular Volume 84.6 fL (80.0-94.0); Mean Platelet Volume 11.8 fL (7.4-10.4); Nucleated Red Blood Cells % 0 % (-); Platelet Count 96 10^3/uL (130-400); Red Blood Cell Count 2.98 10^6/uL (4.70-6.10); Red Cell Dist. Width 16.4 % (11.5-14.5); White Blood Cell Count 7.1 10^3/uL (4.8-10.8)
[2023-04-07 07:33] LABS: Blood Urea Nitrogen 79 mg/dl (9-20); Calcium 7.8 mg/dl (8.4-10.2); Carbon Dioxide 20 mmol/L (22-30); Chloride 102 mmol/L (98-107); Estimated Creatinine Clearance 19 ml/min; Glucose 118 mg/dl (70-99); Sodium 133 mmol/L (135-145)
--- NOTE | 2023-04-07 07:39 | W.PN.HOSP.TC ---
Today's Communication/Plan
-
steroids as per nephro
monitor renal function
renal biopsy sunday
Assessment / Plan
Assessment / Plan
Physical exam
General: no acute distress appears comfortable at this time.
Cardio: S1 S2 regular rate rhythm
Pulm: clear to auscultation no crackles wheezes
Abd: soft nontender bowel sounds present
Ext: Maculopapular rash more present in bilateral lower ext
Neuro: AOx3
72-year-old male with history of hepatitis C diagnosed a couple years ago. Patient has not taken any treatment for unknown reasons. Per daughter his PCP has been monitoring his blood test. For the past few weeks he has been developing increased
lower extremity edema and later on developed a rash. His appetite has been very poor and p.o. intake has gone down. He denies any abdominal pain. Patient has also noted dark urine for quite some time now.
# Maculopapular rash
Differentials
Cryoglobulinemia,vasculitis,Infections
Complement levels are low
cryoglobulin levels pending
Serologies
Blood culture
rash otherwise stable painless no itching
# Acute kidney injury
Urinalysis with RBC and granular casts
4+ blood
Hold diclofenac and benazepril
Nephrology eval appreciated started on IV steroids
Bladder scan
Ultrasound of the kidneys- Neg
Renal biopsy Sunday
Checking IgA, ANCA, CRP and sed rate, anti-GBM LAURI,
# Hyponatremia
# Acute thrombocytopenia
# Anemia
SPEP and UPEP
LDH slightly elevated check haptoglobin levels
# Hepatosplenomegaly
# Hepatitis C untreated- hospitalist discussed with the patient and daughter at bedside that this can lead up to cirrhosis and liver failure cancer and he needs to seek treatment
# Hypertension
Hold benazepril and Norvasc
# Hypocalcemia
# Elevated AST- Follow
# Poor p.o. intake and deconditioning
Unintentional weight loss 20 pounds since December
HIV negative
Patient ever has had a colonoscopy because he chose not to
# Chronic back pain
Spinal stenosis
With history of cortisone injection February 2023
# Hypoalbuminemia
# History of drug abuse in the past more than 50 years ago
# History of 2 cm calcified right lower lobe lung nodule
# Fatty liver
# CODE STATUS-full code
I spent a total of 50 minutes with the patient or on the floor. More than 50% of this time involved counseling and coordination of care.
Anticipated Discharge: > 48 hours
Subjective/Interval History
-
Date of Service: April 07, 2023
No acute distress resting comfortably in bed. Denies new acute issues at this time. Maculopapular rash lower ext persists, denies itching pain.
Objective Data
-
Labs:
Laboratory Results
04/07/23
06:23
WBC 7.1
Hgb 8.2 L
Hct 25.2 L
Plt Count 96 L
Sodium 133 L
Potassium 5.0
Chloride 102
Carbon Dioxide 20 L
BUN 79 H
Creatinine 3.6 H
Glucose 118 H
Calcium 7.8 L
Vital Signs:
Vital Signs
Temp Pulse Resp BP Pulse Ox
99.2 F 76 18 135/59 95
04/06/23 23:37 04/06/23 23:37 04/06/23 23:37 04/06/23 23:37 04/06/23 23:37
I&O
04/06/23 04/07/23 04/08/23
06:59 06:59 06:59
Intake Total 240 / 240 860 / 860
Output Total 800 / 800 500 / 500
Balance -560 / -560 360 / 360
[2023-04-07 07:50] VITALS: BP 108/53
--- NOTE | 2023-04-07 09:40 | W.PN.GI.CBS2 ---
Today's Communication / Plan
-
Continue current care
f/u with DR. Briggs and DR. Enriquez after Dc to start Hepatitis C tx
Assessment / Plan
-
Summary: 72yo male presents with LE edema and rash over last couple weeks and Cr 2.0. He has hx Hep C due to IVDA in his 20's and recent Fibroscan suggests F4 disease, cirrhosis. CT AP 03/12/23 shows hepatosplenomegaly. C3 <40 and C4 <8.
Cryoglobulins pending. TB 2.3, AST 74, ALT 36, AP 88. Ammonia <9. Plt 68. INR 1.36. Denies abd pain, GI bleeding.
Impression:
LE edema and rash
ARF Cr 2.0 on admission
Low complement suspicious for cryoglobulinemia
Hep C cirrhosis, untreated
No hx decompensating event. MELD 3.0 = 20 (today's labs still pending)
Hx IVDA
Recommendations:
Purpuric rash on lower extremities with edema and ELLIE with underlying history of cirrhosis from hepatitis C genotype Ia most likely could be cryoglobulinemia for renal biopsy on Sunday per renal.� He will follow-up with Dr. Briggs after DC for
initiating hepatitis C treatment and also has appointment with Dr. Enriquez family requesting to move up the appointment, I reached out to Dr. Enriquez yesterday and he will try to move up appt
Will s/o and will be avilable as needed
Subjective
Subjective
Date of Service: April 07, 2023
Denies any abdominal pain, lower extremity edema improving, still has purpuric rash in the lower extremities
Objective
Data Reviewed
Laboratory Data:
Laboratory Results
04/07/23 06:23
04/07/23 06:23
Laboratory Results
PT 16.9 Sec (11.4-14.6) H 04/04/23 20:37
INR 1.36 04/04/23 20:37
APTT 35.4 Sec (23.4-35.0) H 04/04/23 20:37
Total Bilirubin 2.6 mg/dl (0.2-1.3) H 04/06/23 11:50
AST 56 U/L (17-59) 04/06/23 11:50
ALT 30 U/L (0-50) 04/06/23 11:50
Alkaline Phosphatase 57 U/L (38-126) 04/06/23 11:50
Lipase 185 U/L (23-300) 04/04/23 14:49
Vital Signs and I&O:
Vital Signs
Temp Pulse Resp BP Pulse Ox
98.0 F 83 16 108/53 95
04/07/23 07:50 04/07/23 07:50 04/07/23 07:50 04/07/23 07:50 04/07/23 07:50
I&O
04/06/23 04/07/23 04/08/23
06:59 06:59 06:59
Intake Total 240 / 240 860 / 860
Output Total 800 / 800 500 / 500
Balance -560 / -560 360 / 360
Physical Exam
Physical Exam
Cardiology: Normal Sinus Rhythm
Pulmonary: Clear
GI: Soft, Non Distended, Non Tender and Normal Bowel Sounds
[2023-04-07 12:59] LABS: Amphetamines Negative (Negative); Barbiturates Negative (Negative); Benzodiazepines Negative (Negative); Buprenorphine Negative (Negative); Cocaine Negative (Negative); Marijuana Positive (Negative); Methadone Negative (Negative); Methamphetamines Negative (Negative); Opiates Negative (Negative); Phencyclidine Negative (Negative); Tricyclic Antidepressants Negative (Negative)
[2023-04-07 13:45] LABS: Fentanyl, Urine Negative (Negative)
--- NOTE | 2023-04-07 14:11 | W.PN.NEPH.PH ---
Today's Communication / Plan
-
steroids
Assessment/Plan
-
Assessment:
ELLIE
Anemia/Thrombocytopenia
hypocomplementemia
Purpuric rash
Hepatitis C (untreated)
Plan:
-await HCV serologies, other serologies
-await renal bx sunday
-heme opinion on plt count and renal bx sunday
-follow BMP
-cap IVF, increase ensure
-lasix 40mg IV
-solumedrol 500mg IV qdaily x 3
-would recommend rheum eval as well
-
-
Date of Service: April 07, 2023
CC / HPI / ROS
-
Chief Complaint:
ELLIE
History of Present Illness:
ELLIE/Cr up to 3.6
painful purpura persists
BP stable
Plts up to 96
Review of Systems:
no CP/SOB
edema
Labs
-
Labs:
WBC 7.1 10^3/uL (4.8-10.8) 04/07/23 06:23
RBC 2.98 10^6/uL (4.70-6.10) L 04/07/23 06:23
Hgb 8.2 g/dL (13.0-18.0) L 04/07/23 06:23
Hct 25.2 % (39.0-52.0) L 04/07/23 06:23
Plt Count 96 10^3/uL (130-400) L 04/07/23 06:23
Sodium 133 mmol/L (135-145) L 04/07/23 06:23
Potassium 5.0 mmol/L (3.5-5.1) 04/07/23 06:23
Chloride 102 mmol/L (98-107) 04/07/23 06:23
Carbon Dioxide 20 mmol/L (22-30) L 04/07/23 06:23
BUN 79 mg/dl (9-20) H 04/07/23 06:23
Creatinine 3.6 mg/dL (0.7-1.3) H 04/07/23 06:23
eGFR 17.30 04/07/23 06:23
Glucose 118 mg/dl (70-99) H 04/07/23 06:23
Calcium 7.8 mg/dl (8.4-10.2) L 04/07/23 06:23
Albumin 2.3 g/dl (3.5-5.0) L 04/06/23 11:50
Physical Exam
-
Vital Signs:
Vital Signs
Temp Pulse Resp BP Pulse Ox
98.0 F 83 16 108/53 95
04/07/23 07:50 04/07/23 07:50 04/07/23 07:50 04/07/23 07:50 04/07/23 07:50
Cardiovascular:: Regular rate and rhythm
Respiratory:: Bilateral: Coarse and Bilateral: Rales
Lung Excursion:: Normal
Abdomen:: Nontender and Soft
Bowel Sounds:: Normal
Extremity Edema:: +2: Bilateral:
[2023-04-07] MEDS: ROXICODONE 5 MG PO (14:15)
[2023-04-07 15:49] VITALS: BP 121/58
[2023-04-07] MEDS: LASIX 40 MG IV (15:52)
[2023-04-07 15:55] LABS: Body Fluid for Eosinophils No Eosinophils seen
[2023-04-07] MEDS: SOLU-MEDROL 108 MG IV (15:59)
[2023-04-07 23:20] VITALS: BP 103/43
[2023-04-08 04:50] VITALS: BMI 30.1
[2023-04-08 07:19] LABS: % Basophils 0.2 % (0-2); % Immature Granulocytes 1.4 % (0-0.5); % Monocytes 2.3 % (1.7-9.3); % Neutrophils 83.1 % (42.2-75.2); Absolute Immature Granulocytes 0.1 10^3/uL (0-0.05); Absolute Lymphocytes 0.6 10^3/uL (1.2-3.4); Absolute Monocytes 0.1 10^3/uL (0.1-0.6); Absolute Neutrophils 3.7 10^3/uL (1.4-6.5); Hematocrit 29.4 % (39.0-52.0); Hemoglobin 9.5 g/dL (13.0-18.0); Mean Corp Hgb Conc. 32.3 g/dL (33.0-37.0); Mean Corpuscular Hgb 27.5 pg (27.0-31.0); Mean Corpuscular Volume 85.2 fL (80.0-94.0); Mean Platelet Volume 12.3 fL (7.4-10.4); Nucleated Red Blood Cells % 0 % (-); Platelet Count 116 10^3/uL (130-400); Red Blood Cell Count 3.45 10^6/uL (4.70-6.10); Red Cell Dist. Width 16.5 % (11.5-14.5); White Blood Cell Count 4.4 10^3/uL (4.8-10.8)
--- NOTE | 2023-04-08 07:50 | W.PN.HOSP.TC ---
Today's Communication/Plan
-
renal bx tomorrow
Rheum eval to be requested tomorrow/weekday as well
potassium restrict
cont steroids and once lokelma as per nephro
Assessment / Plan
Assessment / Plan
Physical exam
General: no acute distress appears comfortable at this time.
Cardio: S1 S2 regular rate rhythm
Pulm: clear to auscultation no crackles wheezes
Abd: soft nontender bowel sounds present
Ext: Maculopapular rash more present in bilateral lower ext
Neuro: AOx3
72-year-old male with history of hepatitis C diagnosed a couple years ago. Patient has not taken any treatment for unknown reasons. Per daughter his PCP has been monitoring his blood test. For the past few weeks he has been developing increased
lower extremity edema and later on developed a rash. His appetite has been very poor and p.o. intake has gone down. He denies any abdominal pain. Patient has also noted dark urine for quite some time now.
# Maculopapular rash
Differentials
Cryoglobulinemia,vasculitis,Infections
Complement levels are low
cryoglobulin levels pending
Serologies
Blood culture
rash otherwise stable painless no itching
# Acute kidney injury
Urinalysis with RBC and granular casts
4+ blood
Hold diclofenac and benazepril
Nephrology eval appreciated started on IV steroids
Bladder scan
Ultrasound of the kidneys- Neg
Renal biopsy Sunday rheum eval to be requested as well
IgG IgA High
CRP elevated
[place] and Lambda light chains also elevated though ratio normal
ANCA,anti-GBM LAURI, pending
ESR mildly elevated relative to age
#Hyperkalemia
potassium restricted diet
once lokelma as per nephro
# Hyponatremia
# Acute thrombocytopenia
# Anemia
SPEP and UPEP
LDH slightly elevated check haptoglobin levels
# Hepatosplenomegaly
# Hepatitis C untreated- hospitalist discussed with the patient and daughter at bedside that this can lead up to cirrhosis and liver failure cancer and he needs to seek treatment
# Hypertension
Hold benazepril and Norvasc
# Hypocalcemia
# Elevated AST- Follow
# Poor p.o. intake and deconditioning
Unintentional weight loss 20 pounds since December
HIV negative
Patient ever has had a colonoscopy because he chose not to
# Chronic back pain
Spinal stenosis
With history of cortisone injection February 2023
# Hypoalbuminemia
# History of drug abuse in the past more than 50 years ago
# History of 2 cm calcified right lower lobe lung nodule
# Fatty liver
# CODE STATUS-full code
dvt ppx scd, heparin (later hold heparin for renal bx)
gi ppx protonix
I spent a total of 50 minutes with the patient or on the floor. More than 50% of this time involved counseling and coordination of care.
Anticipated Discharge: 24 - 48 hours
Subjective/Interval History
-
Date of Service: April 08, 2023
Comfortable no acute distress.
Objective Data
-
Labs:
Laboratory Results
04/08/23
07:01
WBC 4.4 L
Hgb 9.5 L
Hct 29.4 L
Plt Count 116 L D
Sodium Pending
Potassium Pending
Chloride Pending
Carbon Dioxide Pending
BUN Pending
Creatinine Pending
Glucose Pending
Calcium Pending
Vital Signs:
Vital Signs
Temp Pulse Resp BP Pulse Ox
97.5 F 66 16 103/43 93
04/07/23 23:20 04/07/23 23:20 04/07/23 23:20 04/07/23 23:20 04/07/23 23:20
I&O
04/07/23 04/08/23 04/09/23
06:59 06:59 06:59
Intake Total 860 / 860 1200 / 1200
Output Total 500 / 500 350 / 350
Balance 360 / 360 850 / 850
[2023-04-08 08:01] LABS: Blood Urea Nitrogen 93 mg/dl (9-20); Calcium 8.3 mg/dl (8.4-10.2); Carbon Dioxide 20 mmol/L (22-30); Chloride 104 mmol/L (98-107); Estimated Creatinine Clearance 17 ml/min; Glucose 162 mg/dl (70-99); Potassium 5.4 mmol/L (3.5-5.1); Sodium 132 mmol/L (135-145); eGFR 13.24
[2023-04-08 08:12] VITALS: BP 97/49
[2023-04-08] MEDS: HEPARIN 5000 UNITS SC (09:16)
[2023-04-08] MEDS: PROTONIX 40 MG PO (09:16)
--- NOTE | 2023-04-08 12:55 | W.PN.NEPH.PH ---
Today's Communication / Plan
-
Bx tomorrow
Assessment/Plan
-
Assessment:
ELLIE
Anemia/Thrombocytopenia
hypocomplementemia
Purpuric rash
Hepatitis C (untreated)
Plan:
-await HCV serologies, other serologies
-await renal bx sunday
-follow BMP
-solumedrol 500mg IV qdaily x 3
-would recommend rheum eval as well
-we discussed dialysis, I think it is likely he will need to start HD as well in the next 24-48 hrs
-
-
Date of Service: April 08, 2023
CC / HPI / ROS
-
Chief Complaint:
ELLIE
History of Present Illness:
ELLIE/Cr up to 4.5
painful purpura persists
BP stable
Plts up to 116
Review of Systems:
no CP/SOB
edema
Labs
-
Labs:
WBC 4.4 10^3/uL (4.8-10.8) L 04/08/23 07:01
RBC 3.45 10^6/uL (4.70-6.10) L 04/08/23 07:01
Hgb 9.5 g/dL (13.0-18.0) L 04/08/23 07:01
Hct 29.4 % (39.0-52.0) L 04/08/23 07:01
Plt Count 116 10^3/uL (130-400) L D 04/08/23 07:01
Sodium 132 mmol/L (135-145) L 04/08/23 07:01
Potassium 5.4 mmol/L (3.5-5.1) H 04/08/23 07:01
Chloride 104 mmol/L (98-107) 04/08/23 07:01
Carbon Dioxide 20 mmol/L (22-30) L 04/08/23 07:01
BUN 93 mg/dl (9-20) H 04/08/23 07:01
Creatinine 4.5 mg/dL (0.7-1.3) H* 04/08/23 07:01
eGFR 13.24 04/08/23 07:01
Glucose 162 mg/dl (70-99) H 04/08/23 07:01
Calcium 8.3 mg/dl (8.4-10.2) L 04/08/23 07:01
Albumin 2.3 g/dl (3.5-5.0) L 04/06/23 11:50
Physical Exam
-
Vital Signs:
Vital Signs
Temp Pulse Resp BP Pulse Ox
96.2 F L 69 16 97/49 98
04/08/23 08:12 04/08/23 08:12 04/08/23 08:12 04/08/23 08:12 04/08/23 08:12
Cardiovascular:: Regular rate and rhythm
Respiratory:: Bilateral: Coarse
Lung Excursion:: Normal
Abdomen:: Nontender and Soft
Bowel Sounds:: Normal
Extremity Edema:: +3: Bilateral:
[2023-04-08] MEDS: SOLU-MEDROL 108 MG IV (14:12)
[2023-04-08 15:26] VITALS: BP 99/47
[2023-04-08 16:04] LABS: Myeloperoxidase Antibody 0 AU/mL (0-19); Serine Protease-3, IgG 4 AU/mL (0-19)
[2023-04-08 17:23] LABS: Albumin 2.52 g/dL (3.75-5.01); Alpha 1 Globulin 0.47 g/dL (0.19-0.46); Alpha 2 Globulin 0.55 g/dL (0.48-1.05); Free Kappa Light Chains,Quant 167.77 mg/L (3.30-19.40); Free Lambda Light Chains,Quant 107.89 mg/L (5.71-26.30); IgA 479 mg/dL (68-408); IgG 1759 mg/dL (768-1632); IgM 186 mg/dL (35-263); Immunofixation Electrophoresis IFE Done; Kappa/Lambda Fr Light Ratio 1.56 (0.26-1.65)
[2023-04-08] MEDS: HEPARIN SC (20:18)
[2023-04-08] MEDS: LOKELMA 10 GRAM PO (22:14)
[2023-04-08 23:20] VITALS: BP 98/44
[2023-04-09 06:00] VITALS: BMI 30.3
[2023-04-09 06:35] LABS: % Basophils 0.2 % (0-2); % Immature Granulocytes 0.8 % (0-0.5); % Lymphocytes 7.6 % (20.5-51.1); % Neutrophils 88.4 % (42.2-75.2); Absolute Immature Granulocytes 0.1 10^3/uL (0-0.05); Absolute Lymphocytes 0.5 10^3/uL (1.2-3.4); Absolute Monocytes 0.2 10^3/uL (0.1-0.6); Absolute Neutrophils 5.3 10^3/uL (1.4-6.5); Hematocrit 23.4 % (39.0-52.0); Mean Corp Hgb Conc. 34.2 g/dL (33.0-37.0); Mean Corpuscular Hgb 27.9 pg (27.0-31.0); Mean Corpuscular Volume 81.5 fL (80.0-94.0); Nucleated Red Blood Cells % 0 % (-); Platelet Count 109 10^3/uL (130-400); Red Blood Cell Count 2.87 10^6/uL (4.70-6.10); Red Cell Dist. Width 16.6 % (11.5-14.5)
[2023-04-09 07:00] VITALS: BP 96/48
--- NOTE | 2023-04-09 07:01 | W.PN.HOSP.TC ---
Today's Communication/Plan
-
repeat blood cultures
start empiric vancomycin
check ECHO
HD cath placement tomorrow as per Nephro IR
Assessment / Plan
Assessment / Plan
Physical exam
General: no acute distress appears comfortable at this time.
Cardio: S1 S2 regular rate rhythm
Pulm: clear to auscultation no crackles wheezes
Abd: soft nontender bowel sounds present
Ext: Maculopapular rash more present in bilateral lower ext
Neuro: AOx3
72-year-old male with history of hepatitis C diagnosed a couple years ago. Patient has not taken any treatment for unknown reasons. Per daughter his PCP has been monitoring his blood test. For the past few weeks he has been developing increased
lower extremity edema and later on developed a rash. His appetite has been very poor and p.o. intake has gone down. He denies any abdominal pain. Patient has also noted dark urine for quite some time now.
# Maculopapular rash
#Strep bovis bacteremia
Differentials Cryoglobulinemia,vasculitis, Infectious Endocarditis
Complement levels are low
cryoglobulin levels pending
Serologies note high viral load Hep C
Blood culture appreciated Strep B intermediate sensitivity Levofloxacin, sensitive to vancomycin
rash otherwise stable painless no itching
No fever or elevated white count noted
Blood cultures repeated
empiric vancomycin started
Check ECHO
# Acute kidney injury
Urinalysis with RBC and granular casts
4+ blood
Hold diclofenac and benazepril
Nephrology eval appreciated completed IV steroids 500 mg daily x3 days, Case was discussed with rheumatology police matron who reported that they had no further recommendations to add beyond following up with renal biopsy results
Bladder scan
Ultrasound of the kidneys- Neg
Renal biopsy completed Sunday 04/09 patient planned for HD cath tomorrow 04/10 as per nephro
Follow pathology results
IgG IgA High
CRP elevated
[place] and Lambda light chains also elevated though ratio normal
ANCA,anti-GBM LAURI, pending
ESR mildly elevated relative to age
#Hyperkalemia
potassium restricted diet
once lokelma as per nephro
# Hyponatremia
# Acute thrombocytopenia
# Anemia
SPEP and UPEP
LDH slightly elevated check haptoglobin levels
# Hepatosplenomegaly
# Hepatitis C untreated- hospitalist discussed with the patient and daughter at bedside that this can lead up to cirrhosis and liver failure cancer and he needs to seek treatment
# Hypertension
Hold benazepril and Norvasc
# Hypocalcemia
# Elevated AST- Follow
# Poor p.o. intake and deconditioning
Unintentional weight loss 20 pounds since December
HIV negative
Patient ever has had a colonoscopy because he chose not to
# Chronic back pain
Spinal stenosis
With history of cortisone injection February 2023
# Hypoalbuminemia
# History of drug abuse in the past more than 50 years ago
# History of 2 cm calcified right lower lobe lung nodule
# Fatty liver
# CODE STATUS-full code
dvt ppx scd, heparin (later heparin on hold for renal bx HD cath placement)
gi ppx protonix
discussed with patient's daughter Brenda
I spent a total of 55 minutes with the patient or on the floor. More than 50% of this time involved counseling and coordination of care.
Anticipated Discharge: > 48 hours
Subjective/Interval History
-
Date of Service: April 09, 2023
No acute distress NPO for renal biopsy.
Objective Data
-
Labs:
Laboratory Results
04/09/23
05:54
WBC 6.0
Hgb 8.0 L
Hct 23.4 L
Plt Count 109 L
Sodium Pending
Potassium Pending
Chloride Pending
Carbon Dioxide Pending
BUN Pending
Creatinine Pending
Glucose Pending
Calcium Pending
Vital Signs:
Vital Signs
Temp Pulse Resp BP Pulse Ox
98.1 F 68 18 98/44 94
04/08/23 23:20 04/08/23 23:20 04/08/23 23:20 04/08/23 23:20 04/08/23 23:20
I&O
04/08/23 04/09/23 04/10/23
06:59 06:59 06:59
Intake Total 1200 / 1200 480 / 480
Output Total 350 / 350
Balance 850 / 850 480 / 480
[2023-04-09 07:03] LABS: Blood Urea Nitrogen 107 mg/dl (9-20); Calcium 7.8 mg/dl (8.4-10.2); Carbon Dioxide 20 mmol/L (22-30); Chloride 103 mmol/L (98-107); Estimated Creatinine Clearance 18 ml/min; Glucose 137 mg/dl (70-99); Potassium 4.7 mmol/L (3.5-5.1); Sodium 131 mmol/L (135-145)
[2023-04-09 07:47] LABS: INR 1.32; PT 16.2 Sec (11.4-14.6)
[2023-04-09] MEDS: PROTONIX 40 MG PO (08:06)
[2023-04-09 10:01] VITALS: BP 105/44; BP 116/48; BP 97/40; PULSE 69; O2SAT 98
--- NOTE | 2023-04-09 10:38 | W.PN.ONC ---
Today's Communication / Plan
-
IR for renal biopsy today
Platelets adequate at 109
Await HCV serologies
CBC with diff daily
Transfuse as needed to maintain Hgb >7, PLT >20
Supportive care/pain management
PT/OT, falls precautions
We will follow.
Impression
Impression
Hepatitis C (untreated)
Anemia/thrombocytopenia
Petechial lower extremity rash
B/l lower extremity edema
ELLIE (baseline Creat 0.7-0.9)
Cryoglobulinemia
Vasculitis
IgA elevation
Microscopic hematuria
Unintentional weight loss ~20 lbs since 12/2022
Hepatosplenomegaly
Subjective/Objective
Subjective/Objective
Patient is resting comfortably. He is asking for ice chips. He states pain 'is still there' in both legs.
Vital Signs:
Vital Signs
Temp Pulse Resp BP Pulse Ox
97.3 F 68 16 96/48 96
04/09/23 07:00 04/09/23 07:00 04/09/23 07:00 04/09/23 07:00 04/09/23 07:00
physical exam:
aaox3, HRR, lungs dim/coarse
+2/+3 pitting edema bilateral LE , petechial rash bilateral LE
rash appears improved to RLE
Lab Results:
Laboratory Data
WBC 6.0 10^3/uL (4.8-10.8) 04/09/23 05:54
Hgb 8.0 g/dL (13.0-18.0) L 04/09/23 05:54
Plt Count 109 10^3/uL (130-400) L 04/09/23 05:54
PT 16.2 Sec (11.4-14.6) H 04/09/23 07:20
INR 1.32 04/09/23 07:20
APTT 35.4 Sec (23.4-35.0) H 04/04/23 20:37
eGFR 13.60 04/09/23 05:54
[2023-04-09 13:55] VITALS: BP 104/51; BP_SYST 69
--- NOTE | 2023-04-09 14:08 | W.PN.NEPH.PH ---
Today's Communication / Plan
-
Hd catheter placement tomorrow
renal biopsy today
Assessment/Plan
-
Assessment:
ELLIE
Anemia/Thrombocytopenia
hypocomplementemia
Purpuric rash
Hepatitis C (untreated)
Plan:
-await HCV serologies, other serologies
-renal bx today
-HD catheter placement tomorrow , will need Hd
-follow BMP
-solumedrol 500mg IV qdaily x 3
-would recommend rheum eval as well
-follow h/h post renal biopsy
-
-
-
Date of Service: April 09, 2023
CC / HPI / ROS
-
Chief Complaint:
ELLIE
History of Present Illness:
ELLIE/Cr up to 4.4 , BUN>100
painful purpura persists
BP stable
Plts at 109
Review of Systems:
no CP/SOB
edema
Labs
-
Labs:
WBC 6.0 10^3/uL (4.8-10.8) 04/09/23 05:54
RBC 2.87 10^6/uL (4.70-6.10) L 04/09/23 05:54
Hgb 8.0 g/dL (13.0-18.0) L 04/09/23 05:54
Hct 23.4 % (39.0-52.0) L 04/09/23 05:54
Plt Count 109 10^3/uL (130-400) L 04/09/23 05:54
Sodium 131 mmol/L (135-145) L 04/09/23 05:54
Potassium 4.7 mmol/L (3.5-5.1) 04/09/23 05:54
Chloride 103 mmol/L (98-107) 04/09/23 05:54
Carbon Dioxide 20 mmol/L (22-30) L 04/09/23 05:54
BUN 107 mg/dl (9-20) H* 04/09/23 05:54
Creatinine 4.4 mg/dL (0.7-1.3) H* 04/09/23 05:54
eGFR 13.60 04/09/23 05:54
Glucose 137 mg/dl (70-99) H 04/09/23 05:54
Calcium 7.8 mg/dl (8.4-10.2) L 04/09/23 05:54
Albumin 2.3 g/dl (3.5-5.0) L 04/06/23 11:50
Physical Exam
-
Vital Signs:
Vital Signs
Temp Pulse Resp BP Pulse Ox
97.3 F 68 16 96/48 96
04/09/23 07:00 04/09/23 07:00 04/09/23 07:00 04/09/23 07:00 04/09/23 07:00
Cardiovascular:: Regular rate and rhythm
Respiratory:: Bilateral: CTA
Lung Excursion:: Normal
Abdomen:: Nontender and Soft
Bowel Sounds:: Normal
Extremity Edema:: +1: Bilateral:
[place]ield Catheter: No
[2023-04-09 15:50] VITALS: BP 101/54; BP_SYST 66
[2023-04-09 15:56] VITALS: BP 101/54
--- NOTE | 2023-04-09 15:56 | CM ---
Patient for biopsy today. patient seen at bedside, resting. Pending PT/OT assessment to determine level of care needs. CM will continue to follow for discharge planning needs.
Plan; home vs SNF; pending PT/OT assessment
[2023-04-09] MEDS: SOLU-MEDROL 108 MG IV (16:30)
[2023-04-09] MEDS: VANCOCIN 300 ML IV (18:06)
[2023-04-09] MEDS: VANCOCIN 300 MG IV (18:06)
--- NOTE | 2023-04-09 19:02 | PHA.VAN.IN ---
Assessment
- Assessment
Renal Function: Appears elevated from baseline (04/04/23 BASELINE SCR: 2.0)
Concomitant Antimicrobials: NONE
- Previous Dosing Experience
Previous Regimen: NONE
Plan
- Plan
Initial / Loading Dose: 1500MG
Maintenance Regimen: DOSING BY RANDOM LEVELS
Monitoring: RANDOM VANCOMYCIN LEVEL 04/10/23 AM
Pharmacokinetics Vancomycin I
- -
Patient Age: 72
Patient Sex: Male
Vancomycin Day #: 1
Indication: Endocarditis
Requesting Provider: YOSHI
Height / Weight:
Height 5 ft 10 in
Actual Weight 95.85 kg
- Vital Signs / Lab Results
Temp Pulse Resp BP Pulse Ox
97.8 F 66 19 101/54 94
04/09/23 15:50 04/09/23 15:56 04/09/23 15:56 04/09/23 15:56 04/09/23 15:50
Lab Results - Hematology
04/07/23 04/08/23 04/09/23
06:23 07:01 05:54
WBC 7.1 4.4 L 6.0
Lab Results - Chemistry
04/07/23 04/08/23 04/09/23
06:23 07:01 05:54
BUN 79 H 93 H 107 H*
Creatinine 3.6 H 4.5 H* 4.4 H*
Estimated Creat Clear 19 17 18
Microbiology Results
04/05/23 14:24 Blood Culture - Final
Blood/Venous Streptococcus bovis
Gram Stain - Final
04/05/23 13:52 Blood Culture - Final
Blood/Venous Streptococcus bovis
Gram Stain - Final
[2023-04-09] MEDS: ROXICODONE 5 MG PO (21:27)
[2023-04-09 22:05] LABS: HCV Quant by NAAT Interp Detected (Not Detected); HCV Quant by NAAT Log IU/mL 6.74 log IU/mL
[2023-04-09 23:20] VITALS: BP 99/50
[2023-04-10 03:15] VITALS: BP 97/40
[2023-04-10 06:00] VITALS: BMI 30.3
--- NOTE | 2023-04-10 07:09 | W.PN.HOSP.TC ---
Today's Communication/Plan
-
follow cultures
abx as per ID
HD steroids as per nephro
tentative plan for EGD/colonoscopy
potential MAX Fri
Assessment / Plan
Assessment / Plan
Physical exam
General: no acute distress appears comfortable at this time.
Cardio: S1 S2 regular rate rhythm
Pulm: clear to auscultation no crackles wheezes
Abd: soft nontender bowel sounds present
Ext: Maculopapular rash more present in bilateral lower ext
Neuro: AOx3
72-year-old male with history of hepatitis C diagnosed a couple years ago. Patient has not taken any treatment for unknown reasons. Per daughter his PCP has been monitoring his blood test. For the past few weeks he has been developing increased
lower extremity edema and later on developed a rash. His appetite has been very poor and p.o. intake has gone down. He denies any abdominal pain. Patient has also noted dark urine for quite some time now.
# Maculopapular rash
#Strep bovis bacteremia
#Infective Endocarditis
#hx untreated Hep C with associate cirrhosis
Differentials Cryoglobulinemia,vasculitis, Infectious Endocarditis
Complement levels are low
cryoglobulin levels pending
Serologies note high viral load Hep C
Blood culture appreciated Strep B intermediate sensitivity Levofloxacin, sensitive to vancomycin
rash otherwise stable painless no itching
No fever or elevated white count noted
Blood cultures repeated persistently positive
ID eval appreciated empiric vancomycin switched to ceftriaxone
ECHO appreciated EF 55-60% 1cm mobile echodensity associated with Aortic valve with moderate to severe AR, Moderate Severe MR noted as well
cardio eval appreciated possible MAX Fri following EGD results
GI eval shadia EGD/colonoscopy planned for , GI will reach out to [facility] to discuss potential benefit inpt Hep C treatment/transfer
# Acute kidney injury
Urinalysis with RBC and granular casts
4+ blood
Hold diclofenac and benazepril
Nephrology moraima appreciated completed IV steroids 500 mg daily x3 days transitioned to oral prednisone
Bladder scan
Ultrasound of the kidneys- Neg
Renal biopsy completed Sunday 04/09 Cath placed and 1st HD session 04/10 as per nephro
Tolerated 1st session well
Follow pathology results
IgG IgA High
CRP elevated
[place] and Lambda light chains also elevated though ratio normal
ANCA,anti-GBM LAURI, pending
ESR mildly elevated relative to age
#Hyperkalemia
potassium restricted diet
once lokelma as per nephro
# Hyponatremia
# Acute thrombocytopenia
# Anemia
SPEP and UPEP
LDH slightly elevated check haptoglobin levels
# Hepatosplenomegaly
# Hypertension
Hold benazepril and Norvasc
# Hypocalcemia
# Elevated AST- Follow
# Poor p.o. intake and deconditioning
Unintentional weight loss 20 pounds since December
HIV negative
Patient ever has had a colonoscopy because he chose not to
# Chronic back pain
Spinal stenosis
With history of cortisone injection February 2023
# Hypoalbuminemia
# History of drug abuse in the past more than 50 years ago
# History of 2 cm calcified right lower lobe lung nodule
# Fatty liver
# CODE STATUS-full code
dvt ppx scd, heparin (later heparin on hold for renal bx HD cath placement)
gi ppx protonix
discussed with patient's daughter Brenda
I spent a total of 55 minutes with the patient or on the floor. More than 50% of this time involved counseling and coordination of care.
Anticipated Discharge: > 48 hours
Subjective/Interval History
-
Date of Service: April 10, 2023
Seen and examined at bedside with daughter and niece present during evaluation. Denies any new acute issues at this time. Tolerated first dialysis session well.
Objective Data
-
Labs:
Laboratory Results
04/10/23
06:00
WBC Pending
Hgb Pending
Hct Pending
Plt Count Pending
Sodium Pending
Potassium Pending
Chloride Pending
Carbon Dioxide Pending
BUN Pending
Creatinine Pending
Glucose Pending
Calcium Pending
Vital Signs:
Vital Signs
Temp Pulse Resp BP Pulse Ox
98.2 F 65 16 97/40 95
04/10/23 03:15 04/10/23 03:15 04/10/23 03:15 04/10/23 03:15 04/10/23 03:15
I&O
04/09/23 04/10/23 04/11/23
06:59 06:59 06:59
Intake Total 480 / 480 760 / 760
Output Total 200 / 200
Balance 480 / 480 560 / 560
[2023-04-10 07:40] VITALS: BP 109/44
[2023-04-10] MEDS: PROTONIX 40 MG PO (07:57)
--- NOTE | 2023-04-10 08:42 | W.PN.ONC ---
Addendum entered and electronically signed by Negra Rockwell MD 04/10/23 16:14:
Agree w/ A&P as below by FINANCIAL ENGINEER
Original Note:
Today's Communication / Plan
-
2/ IR s/p renal biopsy
Await pathology
04/10 Hgb 9.6, PLT 136
CBC with diff daily
Plans for HD tunneled cath
Supportive care
PT/OT, falls precautions
We will follow along.
Impression
Impression
Hepatitis C (untreated)
Anemia/thrombocytopenia
Petechial lower extremity rash
B/l lower extremity edema
ELLIE (baseline Creat 0.7-0.9)
Cryoglobulinemia
Vasculitis
IgA elevation
Microscopic hematuria
Unintentional weight loss ~20 lbs since 12/2022
Hepatosplenomegaly
Weakness
Subjective/Objective
Subjective/Objective
patient reports weakness/lightheadedness. he is concerned about his BP. denies acute pain
Vital Signs:
Vital Signs
Temp Pulse Resp BP Pulse Ox
97.3 F 66 16 109/44 97
04/10/23 07:40 04/10/23 07:40 04/10/23 07:40 04/10/23 07:40 04/10/23 07:40
physical exam:
aaox3, anxious
RLE rash appears improved, +2 edema
LLE +3 edema, petechial rash
bandage to right flank, CDI
Lab Results:
Laboratory Data
WBC 6.0 10^3/uL (4.8-10.8) 04/09/23 05:54
Hgb 8.0 g/dL (13.0-18.0) L 04/09/23 05:54
Plt Count 109 10^3/uL (130-400) L 04/09/23 05:54
PT 16.2 Sec (11.4-14.6) H 04/09/23 07:20
INR 1.32 04/09/23 07:20
APTT 35.4 Sec (23.4-35.0) H 04/04/23 20:37
eGFR 13.60 04/09/23 05:54
[2023-04-10 08:58] LABS: % Basophils 0.1 % (0-2); % Immature Granulocytes 1.5 % (0-0.5); % Lymphocytes 5.2 % (20.5-51.1); % Monocytes 1.3 % (1.7-9.3); % Neutrophils 91.9 % (42.2-75.2); Absolute Immature Granulocytes 0.1 10^3/uL (0-0.05); Absolute Lymphocytes 0.4 10^3/uL (1.2-3.4); Absolute Monocytes 0.1 10^3/uL (0.1-0.6); Absolute Neutrophils 7.6 10^3/uL (1.4-6.5); Hematocrit 29.3 % (39.0-52.0); Hemoglobin 9.6 g/dL (13.0-18.0); Mean Corp Hgb Conc. 32.8 g/dL (33.0-37.0); Mean Corpuscular Hgb 27.5 pg (27.0-31.0); Mean Platelet Volume 12.9 fL (7.4-10.4); Nucleated Red Blood Cells % 0 % (-); Platelet Count 136 10^3/uL (130-400); Red Blood Cell Count 3.49 10^6/uL (4.70-6.10); Red Cell Dist. Width 17.5 % (11.5-14.5); White Blood Cell Count 8.2 10^3/uL (4.8-10.8)
[2023-04-10 09:20] LABS: Vancomycin Random 13.7 ug/ml
[2023-04-10 09:34] LABS: Blood Urea Nitrogen 116 mg/dl (9-20); Calcium 8.3 mg/dl (8.4-10.2); Carbon Dioxide 19 mmol/L (22-30); Chloride 104 mmol/L (98-107); Estimated Creatinine Clearance 17 ml/min; Glucose 153 mg/dl (70-99); Potassium 4.9 mmol/L (3.5-5.1); Sodium 133 mmol/L (135-145); eGFR 13.24
--- NOTE | 2023-04-10 09:56 | CON.ID ---
Consultation
-
Date/Time Consultation Requested: 04/10/23 7:31
Date/Time Consultation Performed: 04/10/23 9:56
Requesting Provider: Dr Lane
Performing Provider: Dr Hawk
Reason for Consultation: strep bovis bacteremia untreated Hep C petechiae ARF
Chief Complaint / Past History
Chief Complaint
weakness
History of Present Illness
Mr Mayer is a 72 year old male with recently diagnosed Hep C (HIV neg, prior IVDU) presented wit hlower extremity edema and nonblanching rash. Complaining of worsening weakness, fatigue, lightheadedness and nausea and dark urine, chills and
anorexia. 20 lb unintentional weight loss. He is planned for outpatient EGD for variceal screening. Firboscan consistent with cirrhosis.
Since arrival he has been afebrile, bp overall stable - intermittent mild hypotension noted, wbc 8.2, hgb 9.6, plt thrombocytopenia on arrival to 68 on arrival just resolved today, eos have not been present throughout this hospitalization, esr 46,
na 128 on arrival now 133, cr 2.0 from baseline of 0.7 earlier this same month today 4.5, uric acid 8.9, crp 68, no urine eos, UDS + opiates and THC, complements not detectable, cryoglobulins pos, IgG, IgA both elevated, IgM normal, hep C detected
with positive viral load, HIV neg 04/05/23, US: no DVT of LE, renal US: no hydro, s/p HD cath placement 04/09, blood cultures from 04/05 and 04/09 btoh sets with GPCs in chains - s bovis - isolate S: vanc, found to have Hepatosplenomegaly on exam. ID is
consulted for assistance with management.
Past History
Additional Past Medical History:
HTN
Additional Past Surgical History:
Tonsilectomy (L5-S1 epidural steroid injection)
Allergy History:
No Known Allergies Allergy (Verified 03/12/23 11:06)
Medications Reviewed: Yes
Social History
Tobacco: Non-Smoker
Alcohol: None
Drug: Marijuana (and for IV drug abuse 50 years ago)
Family History
Family History: Not Pertinent
Review of Systems
Review of Systems
General: Chills; Negative Fever
All systems: All other systems were reviewed and were negative
Vital Signs
Temp Pulse Resp BP Pulse Ox
97.3 F 66 16 109/44 97
04/10/23 07:40 04/10/23 07:40 04/10/23 07:40 04/10/23 07:40 04/10/23 07:40
Physical Exam
Physical Exam
Constitutional: No Acute Distress and Chronically Ill
Cardiovascular: Regular Rate and S1/S2; Negative Murmur or Rub
Pulmonary: Clear and Symmetric; Negative Wheezes, Rales or Rhonchi
Gastrointestinal: Soft, Non Tender, Non Distended and Normal Bowel Sounds
Skin: Warm and Dry; Negative Jaundice
Neurological: Awake, Alert and Other (No asterixes )
Lines: HD Cath
Lab / Diagnostic Study Results
04/10/23 08:20
04/10/23 08:20
Abs Immat Gran (auto) 0.1 10^3/uL (0-0.05) H 04/10/23 08:20
Absolute Neuts (auto) 7.6 10^3/uL (1.4-6.5) H 04/10/23 08:20
Absolute Lymphs (auto) 0.4 10^3/uL (1.2-3.4) L 04/10/23 08:20
Absolute Monos (auto) 0.1 10^3/uL (0.1-0.6) 04/10/23 08:20
Absolute Basos (auto) 0.0 10^3/uL (0-0.2) 04/10/23 08:20
Immature Gran % 1.5 % (0-0.5) H 04/10/23 08:20
Neutrophils % 91.9 % (42.2-75.2) H 04/10/23 08:20
Lymphocytes % 5.2 % (20.5-51.1) L 04/10/23 08:20
Monocytes % 1.3 % (1.7-9.3) L 04/10/23 08:20
Eosinophils % 0.0 % (0-6) 04/10/23 08:20
Basophils % 0.1 % (0-2) 04/10/23 08:20
ESR 46 mm/hour (0-20) H 04/05/23 16:55
PT 16.2 Sec (11.4-14.6) H 04/09/23 07:20
INR 1.32 04/09/23 07:20
C-Reactive Protein 68.60 mg/L (0.0-10.00) H 04/05/23 10:11
Ur Squamous Epith Cells 0-2 /LPF (Few) 04/04/23 18:43
Microbiology Results
Micro:
04/10/23 08:20 Blood Culture - Pending
Blood/Venous
04/09/23 17:34 Blood Culture - Preliminary
Blood/Venous Positive culture in progress
Gram Stain - Final
04/09/23 17:00 Blood Culture - Preliminary
Blood/Venous Positive culture in progress
Gram Stain - Final
04/05/23 14:24 Blood Culture - Final
Blood/Venous Streptococcus bovis
Gram Stain - Final
04/05/23 13:52 Blood Culture - Final
Blood/Venous Streptococcus bovis
Gram Stain - Final
04/04/23 21:47 MRSA Screen - Final
Nose No Methicillin Resistant Staphylococcus aureus isolated.
Assessment / Plan
S Bovis Bacteremia - persistent
Probable Endocarditis
Untreated Hep C
Cryoglobulinemia
Vasculitis
Cirrhosis with Hepatosplenomegaly - no h/o decompensation
- blood cultures daily until persistently clear in two sets
- agree with Echo
- UA not consistent with glomerulonephritis
- note RIJ HD cath placed while bacteremic
- CT a/p with IV contrast put without oral contrast was done 1 month ago
- recommend colonoscopy outpatient could be done with EGD, known to GI who also will manage Hep C
- note high dose solumedrol per nephrology given ELLIE
- start ceftriaxone - will need at least 4 weeks from clearance of blood cultures; stop vancomycin; spoke with lab and pen AVERY will be released
- PICC line when bacteremia cleared x48 hours
- follow clinically
ELLIE on HD
- nephrology managing
Care Review
Plan reviewed with: Nurse (CT)
[2023-04-10] MEDS: OMNIPAQUE 50 ML PO (10:24)
[2023-04-10 11:48] VITALS: BP 124/50
--- NOTE | 2023-04-10 12:23 | CM ---
Patient seen at bedside. Patient aware of plan for HD and per ID now will need IV antibiotics also for 4 weeks. CM will start referral process to [facility]. CM will continue to follow for discharge planning needs.
Plan; home with daughter, pending HD chair and IV antibiotic needs.
[2023-04-10] MEDS: STERILE WATER FOR INJECTION 20 ML IV (12:53)
[2023-04-10] MEDS: ROCEPHIN 2000 MG IV (12:53)
[2023-04-10] MEDS: MANNITOL 12.5 GRAMS IV ×2 (13:00→14:04)
--- NOTE | 2023-04-10 13:42 | W.PN.NEPH.HD ---
Assessment
-
Patient seen on dialysis
Systolic blood pressure 129 at current ultrafiltration
Mannitol �2 given
Dialysis via temporary catheter
Next dialysis will be tomorrow
Convert to oral steroid administration
Renal biopsy performed on 04/09/23, awaiting results
Progress Note - Hemodialysis
-
Date of Service: April 10, 2023
Duration: 15 minutes and 2 hours
Potassium Bath: 2
Calcium Bath: 2.5
Opti-Dialyzer: 160
Ultrafiltration: Other (1kg)
Blood Flow: 250
Dialysate Flow: 600
Heparin: none
EPO: none
--- NOTE | 2023-04-10 14:13 | CON.CAR ---
Addendum entered and electronically signed by Mitesh Ortiz MD 04/10/23 16:04:
72 yo male with newly diagnosed Hep C, cirrhosis, renal failure, with initiation of HD, Strep bovis bacteremia. He denies CP/SOB/edema. Exam with RRR, II/IV diastolic murmur at RUSB, no edema.
Echo: EF 55-60%, mildly dilated LV, thickened AV with 1 cm mobile echodensity, moderate/severe AR, moderate/severe MR.
Endocarditis, bacterial. May be subacute based on LV dilatation and moderate/severe AR. He also has moderate/severe MR--no vegetation seen on TTE.
This is a high risk situation. He will undergo EGD and colo looking for varices and malignancy. Tentative plan for . Based on results, we may be able to do MAX Sunday.
Check EKG, monitor tele.
Original Note:
Consultation
Consultation Request
Date/Time Consultation Requested: 04/10/23 13:00
Date/Time Consultation Performed: 04/10/23 14:10
Requesting Provider: Dr. Hawk
Performing Provider: MICA Presley for Dr. Ortiz
Reason for Consultation: Abnormal echocardiogram
Medical History
-
Chief Complaint: Weakness
History of Present Illness:
Basilio aMyer is a 72-year-old male with hypertension, untreated hepatitis C, prior IVDA (in his 20s), and former smoker who presented to the emergency department 04/04/2023 with a chief complaint of weakness. His weakness has been ongoing for
approximately 1 month. He endorses associated poor oral intake and unintentional weight loss. He began experiencing lower extremity edema and developed a rash. Upon arrival, he was found to have an ELLIE, acute anemia with thrombocytopenia, and
hyponatremia. His blood cultures were positive for Streptococcus bovis. These have been positive. This is being managed by ID. Oncology is following him for hepatosplenomegaly. Nephrology is following for ELLIE. He started dialysis today. GI is
currently managing his cirrhosis. He had an abnormal echocardiogram today with a mobile echodensity on his aortic valve for which cardiology has been consulted.
His daughter was present for this consultation.
Past Medical History
Past Medical History: HTN and Other (Hepatitis C [untreated])
Past Surgical History: Orthopedic and Tonsilectomy
Social History
Tobacco: Former Smoker
Drug: IVDA (former [ages [age]])
Living: With Family (Daughter)
Employment: Retired ([employer])
Allergies / Home Medications
Allergy/AdvReac Type Severity Reaction Status Date / Time
No Known Allergies Allergy Verified 03/12/23 11:06
Medication Instructions Recorded Confirmed Type
amlodipine 5 mg tablet 5 mg PO DAILY Blood Pressure 04/04/23 04/04/23 History
benazepril 20 mg tablet 20 mg PO DAILY Blood Pressure 04/04/23 04/04/23 History
cyclobenzaprine 5 mg tablet 5 mg PO BID PRN muscle spasms 04/04/23 04/04/23 History
diclofenac sodium 75 mg 75 mg PO BID Pain 04/04/23 04/04/23 History
tablet,delayed release
oxycodone-acetaminophen 5 mg-325 1 tab PO Q6H PRN moderate pain 04/04/23 04/04/23 History
mg tablet
Review of Systems
-
History Source: Patient
All other systems: Negative unless noted
Constitutional: Weight Loss and Fatigue
Respiratory: No Symptoms
Cardiac: No Symptoms
Physical Exam
Vital Signs
Temp Pulse Resp BP Pulse Ox
97.4 F 69 16 124/50 97
04/10/23 11:48 04/10/23 11:48 04/10/23 11:48 04/10/23 11:48 04/10/23 11:48
Lab Results
04/10/23 08:20
04/10/23 08:20
Physical Exam
General: Well Developed, Well Nourished, No Apparent Distress and Comfortable
HEENT: Normocephalic, Anicteric and Moist Mucous Membranes
Respiratory: Non Labored Respirations
Cardiac: S1/S2, Regular Rhythm and Murmur (I/)
Breast: Deferred by me
GI: Soft, Non Tender, Non Distended and Normal Bowel Sounds
Rectal: Deferred by Provider
Genito-urinary: No Costovertebral Tender
Musculoskeletal: No Clubbing, No Cyanosis and No Edema
Skin: Warm and Dry
Neuro: AO x 3
Hematologic/Lymphatic: No Lymphadenopathy
Psych: Calm
Impression / Plan
-
Strep bovis bacteremia - ID following
Concern for endocarditis - aortic valve
-Mobile�echodensity visualized, approx 1 cm
-Update EKG to evaluate for conduction disease
-Consider MAX after cleared by GI (EGD)
ELLIE
-Nephrotoxic agents on hold
-Hemodialysis started today, 04/10/2023
Hepatitis C, untreated
-Cirrhosis on FibroScan
-EGD/Colon tentatively for
Prior IVDA (50 years ago)
Thrombocytopenia
Moderate/severe eccentric mitral regurgitation
Mildly dilated aortic root: SOV 4.1 cm
Ectatic proximal ascending aorta: 3.9�cm
Poor oral intake and deconditioning with unintentional weight loss
Data Reviewed
-
EKG: Report Reviewed by me (Sinus rhythm, first degree AV block, rate 93)
Medical Tests (Nuc Med, Echo etc): Report Reviewed by me (Echo as above)
Labs: Labs Reviewed by me
Old Records: Reviewed
--- NOTE | 2023-04-10 14:24 | W.PN.GI.CBS2 ---
Today's Communication / Plan
-
Please see assessment and plan for details.
Assessment / Plan
-
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 It is possible that his rash, thrombocytopenia and acute renal failure are related to this and not cryoglobulinemia,
though again is unclear. He does have chronic hepatitis C which could also be related, though cryoglobulinemia has also been reported in case reports with infective endocarditis. I will reach out to Chuy pried at [facility] who he has an
appointment with for his input, because of cryoglobulinemia is more hep C related needs treatment started which will be complicated given his acute renal failure, need for steroids and cirrhosis.
2. Hepatitis C: Chronic, genotype 1, with suggestion of cirrhosis on FibroScan, with hepatosplenomegaly noted on CT scan, with thrombocytopenia which has resolved. His child's Bey classification would be A, though his MELD score now is more
markedly elevated at 27, skewed given his cryoglobulinemia related acute renal failure. He would be more increased surgical risk given his renal failure, is otherwise is well compensated from a cirrhosis standpoint. We will plan EGD to assess for
esophageal varices prior to MAX, will plan to do on with colonoscopy.
3. Strep bovis bacteremia: With aortic valve endocarditis. Currently on antibiotics. Again we will plan EGD prior to MAX as well as colonoscopy to rule out colonic malignancy.
I discussed with ID,IM,Cardiology
Subjective
Subjective
Date of Service: April 10, 2023
Called back to see patient to assess for surgical risk given cirrhosis, EGD to assess for varices prior to MAX and colonoscopy given strep bovis bacteremia. He was noted to have persistent strep bovis bacteremia on on transthoracic echo today had a
1 cm aortic valve vegetation. His thrombocytopenia has improved, currently getting Solu-Medrol for cryoglobulinemia, status post renal biopsy which is still pending. He is overall feeling okay, and denies any abdominal pain, shortness of breath or
chest pain. He is currently getting dialysis.
Objective
Data Reviewed
Laboratory Data:
Laboratory Results
04/10/23 08:20
04/10/23 08:20
Laboratory Results
PT 16.2 Sec (11.4-14.6) H 04/09/23 07:20
INR 1.32 04/09/23 07:20
APTT 35.4 Sec (23.4-35.0) H 04/04/23 20:37
Total Bilirubin 2.6 mg/dl (0.2-1.3) H 04/06/23 11:50
AST 56 U/L (17-59) 04/06/23 11:50
ALT 30 U/L (0-50) 04/06/23 11:50
Alkaline Phosphatase 57 U/L (38-126) 04/06/23 11:50
Lipase 185 U/L (23-300) 04/04/23 14:49
Vital Signs and I&O:
Vital Signs
Temp Pulse Resp BP Pulse Ox
97.4 F 69 16 124/50 97
04/10/23 11:48 04/10/23 11:48 04/10/23 11:48 04/10/23 11:48 04/10/23 11:48
I&O
04/09/23 04/10/23 04/11/23
06:59 06:59 06:59
Intake Total 480 / 480 760 / 760
Output Total 200 / 200
Balance 480 / 480 560 / 560
Physical Exam
Physical Exam
General: NAD
Abdomen: normal bowel sounds, soft, no tenderness, no masses or bruits, no ascites
[2023-04-10] MEDS: HEPARIN 2000 UNITS INTRACATH (14:49)
[2023-04-10] MEDS: DELTASONE 50 MG PO (15:29)
[2023-04-10 15:44] VITALS: BP 102/48
[2023-04-10] MEDS: HEPARIN 5000 UNITS SC (21:37)
[2023-04-10] MEDS: ROXICODONE 5 MG PO (21:37)
[2023-04-10 23:20] VITALS: BP 103/48
[2023-04-11 03:10] VITALS: BP 100/46
[2023-04-11 03:41] LABS: ANA, IgG Reflex to HEp-2 None Detected (None Detected)
[2023-04-11 06:00] VITALS: BMI 30.1
--- NOTE | 2023-04-11 06:20 | W.PN.ONC2 ---
Today's Communication / Plan
-
Hematology signing off. Call us if needed.
Impression
Impression
Hepatitis C (untreated)
Anemia/thrombocytopenia
Petechial lower extremity rash
B/l lower extremity edema
ELLIE (baseline Creat 0.7-0.9)
Cryoglobulinemia
Vasculitis
IgA elevation
Microscopic hematuria
Unintentional weight loss ~20 lbs since 12/2022
Hepatosplenomegaly
Weakness
Plan
Plan
PLT count improved and increased up to 136,000. Renal biopsy pending. Heme issues regarding counts likely related to underlying renal and liver disease.
Hematology will signoff and see again if requested.
Subjective/Objective
Chief Complaint
Heme F/U
Subjective
Vital Signs:
Vital Signs
Temp Pulse Resp BP Pulse Ox
97.9 F 61 18 100/46 98
04/11/23 03:10 04/11/23 03:10 04/11/23 03:10 04/11/23 03:10 04/11/23 03:10
Lab Results:
Laboratory Data
WBC 8.2 10^3/uL (4.8-10.8) 04/10/23 08:20
Hgb 9.6 g/dL (13.0-18.0) L 04/10/23 08:20
Plt Count 136 10^3/uL (130-400) D 04/10/23 08:20
PT 16.2 Sec (11.4-14.6) H 04/09/23 07:20
INR 1.32 04/09/23 07:20
APTT 35.4 Sec (23.4-35.0) H 04/04/23 20:37
eGFR 13.24 04/10/23 08:20
--- NOTE | 2023-04-11 06:49 | W.PN.GI.CBS2 ---
Today's Communication / Plan
-
See assessment and plan for details.
Assessment / Plan
-
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 It is possible that his rash, thrombocytopenia and acute renal failure are related to this and not cryoglobulinemia,
though again is unclear. He does have chronic hepatitis C which could also be related, though cryoglobulinemia has also been reported in case reports with infective endocarditis. Currently stable on steroids. I discussed with Dr. Nava,
hepatology at [facility], at length last night. Would likely start treatment for hep C, though again unclear if cryoglobulins is all related to hep C or from endocarditis. Given the complexity of the situation and need for treatment would be
agreeable for transfer. I will discuss with the patient's daughter this morning, and if agreeable we will initiate transfer to [facility], though will likely take several days, and would still plan on EGD and colonoscopy tomorrow.
2. Hepatitis C: Chronic, genotype 1, with suggestion of cirrhosis on FibroScan, with hepatosplenomegaly noted on CT scan, with thrombocytopenia which has resolved. His child's Bey classification would be A, though his MELD score now is more
markedly elevated at 27, skewed given his cryoglobulinemia related acute renal failure. He would be more increased surgical risk given his renal failure, is otherwise is well compensated from a cirrhosis standpoint. We will plan EGD to assess for
esophageal varices prior to MAX, will plan to do on with colonoscopy.
3. Strep bovis bacteremia: With aortic valve endocarditis. Currently on antibiotics. Again we will plan EGD prior to MAX as well as colonoscopy to rule out colonic malignancy.
Subjective
Subjective
Date of Service: April 11, 2023
Patient feeling okay overall, denies abdominal pain, no fevers or chills, denies any shortness of breath. I discussed with Dr. Nava last night from [facility] hepatology at length last night.
Objective
Data Reviewed
Laboratory Data:
Laboratory Results
PT 16.2 Sec (11.4-14.6) H 04/09/23 07:20
INR 1.32 04/09/23 07:20
APTT 35.4 Sec (23.4-35.0) H 04/04/23 20:37
Total Bilirubin 2.6 mg/dl (0.2-1.3) H 04/06/23 11:50
AST 56 U/L (17-59) 04/06/23 11:50
ALT 30 U/L (0-50) 04/06/23 11:50
Alkaline Phosphatase 57 U/L (38-126) 04/06/23 11:50
Lipase 185 U/L (23-300) 04/04/23 14:49
Vital Signs and I&O:
Vital Signs
Temp Pulse Resp BP Pulse Ox
97.9 F 61 18 100/46 98
04/11/23 03:10 04/11/23 03:10 04/11/23 03:10 04/11/23 03:10 04/11/23 03:10
I&O
04/09/23 04/10/23 04/11/23
06:59 06:59 06:59
Intake Total 480 / 480 760 / 760 900 / 900
Output Total 200 / 200
Balance 480 / 480 560 / 560 900 / 900
Physical Exam
Physical Exam
General: NAD
Abdomen: normal bowel sounds, soft, no tenderness, no masses or bruits, no ascites
--- NOTE | 2023-04-11 07:26 | W.PN.HOSP.TC ---
Today's Communication/Plan
-
Accepted for Transfer to [facility] under Dr Nava's care potential benefit inpt Hep C treatment
cont abx as per ID
HD as per nephro
npo after midnight for EGD/colonoscopy tomorrow
Assessment / Plan
Assessment / Plan
Physical exam
General: no acute distress appears comfortable at this time.
Cardio: S1 S2 regular rate rhythm
Pulm: clear to auscultation no crackles wheezes
Abd: soft nontender bowel sounds present
Ext: Maculopapular rash LE improving especially RLE
Neuro: AOx3
72-year-old male with history of hepatitis C diagnosed a couple years ago. Patient has not taken any treatment for unknown reasons. Per daughter his PCP has been monitoring his blood test. For the past few weeks he has been developing increased
lower extremity edema and later on developed a rash. His appetite has been very poor and p.o. intake has gone down. He denies any abdominal pain. Patient has also noted dark urine for quite some time now.
# Maculopapular rash
#Strep bovis bacteremia
#Infective Endocarditis
#hx untreated Hep C with associate cirrhosis
Differentials Cryoglobulinemia,vasculitis, Infectious Endocarditis
Complement levels are low
cryoglobulin levels pending
Serologies note high viral load Hep C
Blood culture appreciated Strep B intermediate sensitivity Levofloxacin, sensitive to vancomycin
rash otherwise stable painless no itching
No fever or elevated white count noted
Blood cultures repeated persistently positive
ID eval appreciated empiric vancomycin switched to ceftriaxone
ECHO appreciated EF 55-60% 1cm mobile echodensity associated with Aortic valve with moderate to severe AR, Moderate Severe MR noted as well
cardio eval appreciated possible MAX Fri following EGD results
GI eval shadia EGD/colonoscopy planned for , GI discussed with [facility] Enriquez and patient has been accepted under Dr. Nava's care for transfer potential benefit inpt Hep C treatment (patient and daughter in agreement and consenting for
transfer)
04/11 CT abd/pelvis oral contrast only appreciated
Bilateral lower lobe consolidations compatible with atelectasis and/or pneumonia (more likely atelectasis, no significant respiratory symptoms) with small bilateral pleural effusions.
Small volume ascites.
Markedly limited study in light of lack of intravenous contrast without gross focal inflammatory process involving the intestinal tract. Please note, an inflammatory/infectious process of the intestinal tract cannot be entirely excluded on the basis
of this study.
Small simple right renal cysts.
Mildly enlarged prostate.
# Acute kidney injury
Urinalysis with RBC and granular casts
4+ blood
Hold diclofenac and benazepril
Nephrology eval appreciated completed IV steroids 500 mg daily x3 days transitioned to oral prednisone
Bladder scan
Ultrasound of the kidneys- Neg
Renal biopsy completed Sunday 04/09 Cath placed and 1st HD session 04/10 as per nephro
Tolerating HD sessions well
preliminary renal bx: ATN with red cell casts, consistent with a postinfectious ELLIE. mild C3 staining, no IgM, no evidence of cryoglobulin effect.
IgG IgA High
CRP elevated
[place] and Lambda light chains also elevated though ratio normal
ANCA,anti-GBM LAURI, pending
ESR mildly elevated relative to age
#Hyperkalemia
potassium restricted diet
once lokelma as per nephro
# Hyponatremia
# Acute thrombocytopenia
# Anemia
SPEP and UPEP
LDH slightly elevated check haptoglobin levels
# Hepatosplenomegaly
# Hypertension
Hold benazepril and Norvasc
# Hypocalcemia
# Elevated AST- Follow
# Poor p.o. intake and deconditioning
Unintentional weight loss 20 pounds since December
HIV negative
Patient ever has had a colonoscopy because he chose not to
# Chronic back pain
Spinal stenosis
With history of cortisone injection February 2023
# Hypoalbuminemia
# History of drug abuse in the past more than 50 years ago
# History of 2 cm calcified right lower lobe lung nodule
# Fatty liver
# CODE STATUS-full code
dvt ppx scd, heparin (later heparin on hold for renal bx HD cath placement)
gi ppx protonix
discussed with patient's daughter Brenda
I spent a total of 55 minutes with the patient or on the floor. More than 50% of this time involved counseling and coordination of care.
Anticipated Discharge: > 48 hours
Subjective/Interval History
-
Date of Service: April 11, 2023
No acute distress appears comfortable at this time. Tolerating dialysis sessions. Lower ext rash improving especially RLE
Objective Data
-
Labs:
Laboratory Results
04/11/23
07:00
Hgb Pending
Hct Pending
Sodium Pending
Potassium Pending
Chloride Pending
Carbon Dioxide Pending
BUN Pending
Creatinine Pending
Glucose Pending
Calcium Pending
Vital Signs:
Vital Signs
Temp Pulse Resp BP Pulse Ox
97.9 F 61 18 100/46 98
04/11/23 03:10 04/11/23 03:10 04/11/23 03:10 04/11/23 03:10 04/11/23 03:10
I&O
04/10/23 04/11/23 04/12/23
06:59 06:59 06:59
Intake Total 760 / 760 900 / 900
Output Total 200 / 200
Balance 560 / 560 900 / 900
[2023-04-11 07:30] VITALS: BP 107/50
--- NOTE | 2023-04-11 08:02 | W.PN.UPDATE ---
Update Note
Progress Note Update
I discussed again with the patient, his daughter and Dr. Nava at [facility], all agreeable for transfer, Dr. Villarreal accepting. Will likely be a couple of days, so we will still plan EGD and colonoscopy here tomorrow.
[2023-04-11] MEDS: HEPARIN 5000 UNITS SC ×2 (08:37→20:45)
[2023-04-11] MEDS: DELTASONE 50 MG PO (08:37)
[2023-04-11] MEDS: OMNIPAQUE 50 ML PO (08:37)
[2023-04-11] MEDS: PROTONIX 40 MG PO (08:37)
[2023-04-11 09:02] LABS: Hematocrit 24.5 % (39.0-52.0); Hemoglobin 8.1 g/dL (13.0-18.0)
[2023-04-11 09:24] LABS: Blood Urea Nitrogen 101 mg/dl (9-20); Carbon Dioxide 22 mmol/L (22-30); Chloride 100 mmol/L (98-107); Estimated Creatinine Clearance 23 ml/min; Glucose 114 mg/dl (70-99); Potassium 4.6 mmol/L (3.5-5.1); Sodium 133 mmol/L (135-145); eGFR 18.53
--- NOTE | 2023-04-11 10:45 | CM ---
Per chart review patient for possible transfer to [place]. Patient for testing today and HD per patient. CM will continue to follow for discharge planning needs.
Plan;TBD; possible transfer to [place], new to HD.
[2023-04-11 11:30] VITALS: BP 121/45
[2023-04-11] MEDS: MANNITOL 12.5 GRAMS IV ×2 (12:28→13:26)
--- NOTE | 2023-04-11 13:50 | W.PN.NEPH.HD ---
Assessment
-
Seen on HD. no new complaints. VSS, access ok
preliminary renal bx: ATN with red cell casts, consistent with a postinfectious ELLIE. mild C3 staining, no IgM, no evidence of cryoglobulin effect.
Progress Note - Hemodialysis
-
Date of Service: April 11, 2023
Duration: 30 minutes and 2 hours
Calcium Bath: 2.5
Opti-Dialyzer: 160
Ultrafiltration: Other (0.5kg)
Blood Flow: 300
Dialysate Flow: 600
Heparin: 0
EPO: 0
[2023-04-11] MEDS: HEPARIN 2000 UNITS INTRACATH (14:20)
[2023-04-11] MEDS: STERILE WATER FOR INJECTION 20 ML IV (15:46)
[2023-04-11] MEDS: ROCEPHIN 2000 MG IV (15:46)
--- NOTE | 2023-04-11 15:49 | W.PN.ID1 ---
Date of Service
Date of Service: April 11, 2023
Today's Communication
continue ceftriaxone
agree with transfer when feasible
Assessment / Plan
S Bovis Bacteremia - persistent
Probable Endocarditis
Untreated Hep C
Cryoglobulinemia
Vasculitis
Cirrhosis with Hepatosplenomegaly - no h/o decompensation
- blood cultures daily until persistently clear in two sets
- for egd/colon tomorrow - then if feasible MAX
- note RIJ HD cath placed while bacteremic - may consider line holiday if not clearing in next several days and still in house - would discuss with nephro at that time
- now on prednisone 50 mg per nephrology
- continue ceftriaxone - will need at least 4 weeks from clearance of blood cultures
- PICC line when bacteremia cleared x48 hours
- follow clinically
ELLIE on HD
- nephrology managing
Agree with transfer
Chief Complaint
-: Bacteremia and Other (endocarditis)
Subjective / Review of Systems
afebrile
bp stable
cr improved post hd
yesterdays blood cultures remain positive
preliminary renal bx: ATN with red cell casts, consistent with a postinfectious ELLIE.
Vital Signs / Physical Exam
Vital Signs
Vital Signs
Temp Pulse Resp BP Pulse Ox
97.8 F 63 16 121/45 99
04/11/23 11:30 04/11/23 11:30 04/11/23 11:30 04/11/23 11:30 04/11/23 11:30
Physical Exam
Constitutional: No Acute Distress
Cardiovascular: Regular Rate and S1/S2; Negative Murmur or Rub
Pulmonary: Clear and Symmetric; Negative Wheezes or Rales
Gastrointestinal: Soft, Non Tender, Non Distended and Normal Bowel Sounds
Skin: Warm and Dry; Negative Rash or Jaundice
Lines: PIV (no eythema or tenderness) and HD Cath (mildly tender, no erythema or drainage)
Objective Data
Lab Data
Lab Results
04/11/23 08:44
04/11/23 08:44
ESR 46 mm/hour (0-20) H 04/05/23 16:55
PT 16.2 Sec (11.4-14.6) H 04/09/23 07:20
INR 1.32 04/09/23 07:20
APTT 35.4 Sec (23.4-35.0) H 04/04/23 20:37
Estimated Creat Clear 23 ml/min 04/11/23 08:44
Total Bilirubin 2.6 mg/dl (0.2-1.3) H 04/06/23 11:50
AST 56 U/L (17-59) 04/06/23 11:50
ALT 30 U/L (0-50) 04/06/23 11:50
Alkaline Phosphatase 57 U/L (38-126) 04/06/23 11:50
C-Reactive Protein 68.60 mg/L (0.0-10.00) H 04/05/23 10:11
Most recent labs reviewed.
Micro Results:
04/11/23 08:44 Blood Culture - Pending
Blood/Venous
04/09/23 17:34 Blood Culture - Preliminary
Blood/Venous Streptococcus bovis
Gram Stain - Final
04/09/23 17:00 Blood Culture - Preliminary
Blood/Venous Streptococcus bovis
Gram Stain - Final
04/10/23 08:20 Blood Culture - Preliminary
Blood/Venous Positive culture in progress
Gram Stain - Preliminary
04/05/23 13:52 Blood Culture - Final
Blood/Venous Streptococcus bovis
Gram Stain - Final
04/05/23 14:24 Blood Culture - Final
Blood/Venous Streptococcus bovis
Gram Stain - Final
04/04/23 21:47 MRSA Screen - Final
Nose No Methicillin Resistant Staphylococcus aureus isolated.
Care Review
Plan reviewed with: Physician (GI, IM services)
[2023-04-11 15:55] VITALS: BP 99/64
--- NOTE | 2023-04-11 17:00 | W.PN.CD ---
Today's Communication / Plan
-
plan is EGD , and MAX Sunday if no significant varices
there is also a tentative plan for transfer to [facility] for advanced therapy for his liver: date to be determined
Impression / Plan
-
Endocarditis: aortic valve with moderate/severe AR
-there is also moderate/severe MR--no vegetation on TTE
-LV dilated: may be sub-acute
-plan is EGD , and MAX Sunday if no significant varices
-there is also a tentative plan for transfer to [place] for advanced therapy for his liver: date to be determined
Strep bovis bacteremia - ID following, directing Abx
Acute renal failure: now on HD per nephrology
Hepatitis C, untreated
-Cirrhosis on FibroScan
-EGD/Colon tentatively for to screen for varices
Prior IVDA (50 years ago)
Thrombocytopenia
Mildly dilated aortic root: SOV 4.1 cm
Ectatic proximal ascending aorta: 3.9�cm
Physical Exam
Vital Signs/Labs
Vital Signs
Temp Pulse Resp BP Pulse Ox
97.8 F 65 16 99/64 98
04/11/23 15:55 04/11/23 15:55 04/11/23 15:55 04/11/23 15:55 04/11/23 15:55
04/10/23 04/11/23 04/12/23
06:59 06:59 06:59
Actual Weight 95.765 kg 95.311 kg
04/11/23 08:44
04/11/23 08:44
PT 16.2 Sec (11.4-14.6) H 04/09/23 07:20
INR 1.32 04/09/23 07:20
APTT 35.4 Sec (23.4-35.0) H 04/04/23 20:37
Triglycerides 181 mg/dl (10-149) H 04/05/23 11:16
TSH 3.42 uIU/ml (0.47-4.68) 04/05/23 10:11
Physical Exam
Constitutional: No acute distress and Comfortable
EENT: Moist mucous membranes
Cardiovascular: Rhythm & rate is regular, Pedal edema present, Systolic murmur present and Diastolic murmur present
Respiratory: Respiratory effort normal and Lungs clear to auscul.
GI: Soft, Distention absent and Flat
Neuro/Psych: AO x 3
Data Reviewed
-
Date of Service: April 11, 2023
EKG: Tracing Personally Visualized and interpreted and Other (Tele: SR, PAC's)
[2023-04-11] MEDS: NULYTELY SOLUTION 4 LITERS PO (17:37)
[2023-04-11 19:45] VITALS: BP 120/48
[2023-04-11] MEDS: ROXICODONE 5 MG PO (20:54)
[2023-04-11 23:21] VITALS: BP 114/42
[2023-04-12] VITALS (8 sets, daily range): BP systolic 18–114; BP diastolic 42–61; BMI 30.2
--- NOTE | 2023-04-12 07:25 | W.PN.HOSP.TC ---
Today's Communication/Plan
-
Accepted for Transfer to [facility] under Dr Nava's care potential benefit inpt Hep C treatment
Transfer when bed available
cont abx as per ID
HD as per nephro
EGD/Colonoscopy completed
Assessment / Plan
Assessment / Plan
Physical exam
General: no acute distress appears comfortable at this time.
Cardio: S1 S2 regular rate rhythm
Pulm: clear to auscultation no crackles wheezes
Abd: soft nontender bowel sounds present
Ext: Maculopapular rash LE improving especially RLE
Neuro: AOx3
72-year-old male with history of hepatitis C diagnosed a couple years ago. Patient has not taken any treatment for unknown reasons. Per daughter his PCP has been monitoring his blood test. For the past few weeks he has been developing increased
lower extremity edema and later on developed a rash. His appetite has been very poor and p.o. intake has gone down. He denies any abdominal pain. Patient has also noted dark urine for quite some time now.
# Maculopapular rash
#Strep bovis bacteremia
#Infective Endocarditis
#hx untreated Hep C with associate cirrhosis
Differentials Cryoglobulinemia,vasculitis, Infectious Endocarditis
Complement levels are low
cryoglobulin Positive
Serologies note high viral load Hep C
Blood culture appreciated Strep B intermediate sensitivity Levofloxacin, sensitive to vancomycin
rash otherwise stable painless no itching
No fever or elevated white count noted
Blood cultures repeated persistently positive, 04/11 Blood culture NGTD
ID eval appreciated empiric vancomycin switched to ceftriaxone, continued
ECHO appreciated EF 55-60% 1cm mobile echodensity associated with Aortic valve with moderate to severe AR, Moderate Severe MR noted as well
cardio eval appreciated possible MAX Fri following EGD results
GI eval shadia EGD/colonoscopy planned for , GI discussed with Desmond Enriquez and patient has been accepted under Dr. Nava's care for transfer potential benefit inpt Hep C treatment (patient and daughter in agreement and consenting for
transfer)
EGD 04/12
-LA grade B reflux esophagitis w/ no bleeding
-no varices
-small hiatal hernia
-normal duodenum
-no specimens collected
Colonoscopy 04/12
-25 mm polyp ascending colon removed clips placed, pathology pending
-diverticulosis in sigmoid colon
-Internal Hemorrhoids
04/11 CT abd/pelvis oral contrast only appreciated
Bilateral lower lobe consolidations compatible with atelectasis and/or pneumonia (more likely atelectasis, no significant respiratory symptoms) with small bilateral pleural effusions.
Small volume ascites.
Markedly limited study in light of lack of intravenous contrast without gross focal inflammatory process involving the intestinal tract. Please note, an inflammatory/infectious process of the intestinal tract cannot be entirely excluded on the basis
of this study.
Small simple right renal cysts.
Mildly enlarged prostate.
# Acute kidney injury
Urinalysis with RBC and granular casts
4+ blood
Hold diclofenac and benazepril
Nephrology eval appreciated completed IV steroids 500 mg daily x3 days transitioned to oral prednisone
Bladder scan
Ultrasound of the kidneys- Neg
Renal biopsy completed Sunday 04/09 Cath placed and 1st HD session 04/10 as per nephro
Tolerating HD sessions well
preliminary renal bx: ATN with red cell casts, consistent with a postinfectious ELLIE. mild C3 staining, no IgM, no evidence of cryoglobulin effect.
IgG IgA High
CRP elevated
[place] and Lambda light chains also elevated though ratio normal
ANCA,anti-GBM pending
LAURI negative
ESR mildly elevated relative to age
#Hyperkalemia
potassium restricted diet
once lokelma as per nephro
# Hyponatremia
# Acute thrombocytopenia
# Anemia
SPEP and UPEP
LDH slightly elevated check haptoglobin levels
# Hepatosplenomegaly
#hx Hypertension
#BP low normotensive throughout stay
cont Hold benazepril and Norvasc
# Hypocalcemia
# Elevated AST- Follow
# Poor p.o. intake and deconditioning
Unintentional weight loss 20 pounds since December
HIV negative
Patient ever has had a colonoscopy because he chose not to
# Chronic back pain
Spinal stenosis
With history of cortisone injection February 2023
# Hypoalbuminemia
# History of drug abuse in the past more than 50 years ago
# History of 2 cm calcified right lower lobe lung nodule
# Fatty liver
# CODE STATUS-full code
dvt ppx scd, heparin (later heparin on hold for renal bx HD cath placement)
gi ppx protonix
discussed with patient's daughter Brenda
I spent a total of 55 minutes with the patient or on the floor. More than 50% of this time involved counseling and coordination of care.
Anticipated Discharge: Today
Subjective/Interval History
-
Date of Service: April 12, 2023
Seen and examined at bedside in no acute distress resting comfortably in bed. Denies any new acute issues at this time. Reports overall feeling well
Objective Data
-
Labs:
Laboratory Results
04/12/23
07:00
WBC Pending
Hgb Pending
Hct Pending
Plt Count Pending
Sodium Pending
Potassium Pending
Chloride Pending
Carbon Dioxide Pending
BUN Pending
Creatinine Pending
Glucose Pending
Calcium Pending
Total Bilirubin Pending
AST Pending
ALT Pending
Alkaline Phosphatase Pending
Vital Signs:
Vital Signs
Temp Pulse Resp BP Pulse Ox
97.6 F 73 18 114/56 95
04/12/23 03:14 04/12/23 03:14 04/12/23 03:14 04/12/23 03:14 04/12/23 03:14
I&O
04/11/23 04/12/23 04/13/23
06:59 06:59 06:59
Intake Total 900 / 900 5000 / 5000
Balance 900 / 900 5000 / 5000
[2023-04-12 08:04] LABS: Hematocrit 24.6 % (39.0-52.0); Hemoglobin 8.4 g/dL (13.0-18.0); Mean Corp Hgb Conc. 34.1 g/dL (33.0-37.0); Mean Corpuscular Hgb 27.9 pg (27.0-31.0); Mean Corpuscular Volume 81.7 fL (80.0-94.0); Mean Platelet Volume 11.4 fL (7.4-10.4); Platelet Count 125 10^3/uL (130-400); Red Blood Cell Count 3.01 10^6/uL (4.70-6.10); Red Cell Dist. Width 18.1 % (11.5-14.5); White Blood Cell Count 6.9 10^3/uL (4.8-10.8)
[2023-04-12] MEDS: EPOGEN 10000 UNITS IV (08:15)
[2023-04-12] MEDS: MANNITOL 12.5 GRAMS IV ×2 (08:16→09:23)
[2023-04-12 08:17] LABS: ALT (SGPT) 42 U/L (0-50); AST (SGOT) 59 U/L (17-59); Albumin 2.7 g/dl (3.5-5.0); Alkaline Phosphatase 68 U/L (38-126); Blood Urea Nitrogen 66 mg/dl (9-20); Calcium 7.6 mg/dl (8.4-10.2); Carbon Dioxide 25 mmol/L (22-30); Chloride 102 mmol/L (98-107); Direct Bilirubin 1.4 mg/dl (0.0-0.4); Estimated Creatinine Clearance 28 ml/min; Glucose 96 mg/dl (70-99); Potassium 3.9 mmol/L (3.5-5.1); Sodium 132 mmol/L (135-145); Total Bilirubin 1.8 mg/dl (0.2-1.3); Total Protein 6.2 g/dl (6.3-8.2); eGFR 23.39
[2023-04-12] MEDS: FLEXBUMIN 25% FOR HEMODIALYSIS 12.5 GRAMS IV ×2 (08:17→09:20)
--- NOTE | 2023-04-12 09:47 | CM ---
Addendum entered by Tanisha Dougherty 04/12/23 15:20:
Per nursing bed now available at [facility] and patient for transfer.
Original Note:
Patient currently on HD, testing scheduled today. Possible for transfer to [facility] pending, CM will continue to follow for discharge planning needs.
Plan; transfer to [facility], pending
--- NOTE | 2023-04-12 10:07 | W.PN.ID1 ---
Date of Service
Date of Service: April 12, 2023
Today's Communication
continue ceftriaxone
blood cultures may be clearing
Assessment / Plan
S Bovis Bacteremia - persistent
Probable Endocarditis
Untreated Hep C
Cryoglobulinemia
Vasculitis
Cirrhosis with Hepatosplenomegaly - no h/o decompensation
- blood cultures daily until persistently clear in two sets
- for egd/colon - then if feasible MAX sunday if in house
- note RIJ HD cath placed while bacteremic - may consider line holiday if not clearing in next several days and still in house - would discuss with nephro at that time
- now on prednisone 50 mg per nephrology
- continue ceftriaxone - will need at least 4 weeks from clearance of blood cultures
- PICC line when bacteremia cleared x48 hours
- follow clinically
ELLIE on HD
- nephrology managing
Agree with transfer
Chief Complaint
-: Bacteremia and Other (endocarditis)
Subjective / Review of Systems
afebrile
bp stable
without leukocytosis
relapse of the thrombocytopenia
cr further improved today
2/ blood culture no growth at 24 hours
Vital Signs / Physical Exam
Vital Signs
Vital Signs
Temp Pulse Resp BP Pulse Ox
97.4 F 72 16 112/46 99
04/12/23 07:30 04/12/23 07:30 04/12/23 07:30 04/12/23 07:30 04/12/23 07:30
Physical Exam
Constitutional: Chronically Ill and Non-toxic
Cardiovascular: Regular Rate, S1/S2 and Murmur; Negative Rub
Pulmonary: Clear and Symmetric; Negative Wheezes or Rales
Gastrointestinal: Soft, Non Tender, Non Distended and Normal Bowel Sounds
Skin: Warm, Dry and Rash (nonblanching rash on the bilateral lower extremitites); Negative Jaundice
Objective Data
Lab Data
Lab Results
04/12/23 07:27
04/12/23 07:27
ESR 46 mm/hour (0-20) H 04/05/23 16:55
PT 16.2 Sec (11.4-14.6) H 04/09/23 07:20
INR 1.32 04/09/23 07:20
APTT 35.4 Sec (23.4-35.0) H 04/04/23 20:37
Estimated Creat Clear 28 ml/min 04/12/23 07:27
Total Bilirubin 1.8 mg/dl (0.2-1.3) H 04/12/23 07:27
AST 59 U/L (17-59) 04/12/23 07:27
ALT 42 U/L (0-50) 04/12/23 07:27
Alkaline Phosphatase 68 U/L (38-126) 04/12/23 07:27
C-Reactive Protein 68.60 mg/L (0.0-10.00) H 04/05/23 10:11
Most recent labs reviewed.
Micro Results:
04/11/23 08:44 Blood Culture - Preliminary
Blood/Venous No Growth in 24 hours- Final report to follow
04/10/23 08:20 Blood Culture - Preliminary
Blood/Venous Streptococcus bovis
Gram Stain - Preliminary
04/12/23 07:27 Blood Culture - Pending
Blood/Venous
04/09/23 17:34 Blood Culture - Preliminary
Blood/Venous Streptococcus bovis
Gram Stain - Final
04/09/23 17:00 Blood Culture - Preliminary
Blood/Venous Streptococcus bovis
Gram Stain - Final
04/05/23 13:52 Blood Culture - Final
Blood/Venous Streptococcus bovis
Gram Stain - Final
04/05/23 14:24 Blood Culture - Final
Blood/Venous Streptococcus bovis
Gram Stain - Final
04/04/23 21:47 MRSA Screen - Final
Nose No Methicillin Resistant Staphylococcus aureus isolated.
--- NOTE | 2023-04-12 10:15 | W.PN.CD ---
Addendum entered and electronically signed by Marlene Yi MD 04/12/23 11:43:
I saw and examined the patient.
The LAP MAKER's note was reviewed and I agree with the note.
Comment: he is without complaints of shortness of breath or chest. He is set ot have EGD. RRR s1s2 systolic murmur heard, lungs cta, 2+ pitting edema up through legs b/l with petechial rash on legs. If not CI 2/2 to varices will plan to proceed to
MAX tomorrow to further characterize the mitral valve. Headed down to EGD now.
Original Note:
Today's Communication / Plan
-
GI work-up today as planned, which will help determine if MAX appropriate for tomorrow, and plan is transfer when be available at [facility]
Impression / Plan
-
Endocarditis: aortic valve with moderate/severe AR
-there is also moderate/severe MR-no vegetation on TTE
-LV dilated: may be sub-acute
-plan is EGD (and colonoscopy) today and MAX tomorrow if no significant varices by egd
-there is also a tentative plan for transfer to [facility] for advanced therapy for his liver (Dr. Villarreal accepting): date to be determined- likely a couple of days per GI note from yesterday
Strep bovis bacteremia - Abx per ID
Acute renal failure: now on HD per nephrology:
-currently getting HD
Hepatitis C, untreated
-Cirrhosis on FibroScan
-EGD/Colon planned for today to screen for varices
Prior IVDA (50 years ago)
Thrombocytopenia
Mildly dilated aortic root: SOV 4.1 cm
Ectatic proximal ascending aorta: 3.9�cm
Physical Exam
Vital Signs/Labs
Vital Signs
Temp Pulse Resp BP Pulse Ox
97.4 F 72 16 112/46 99
04/12/23 07:30 04/12/23 07:30 04/12/23 07:30 04/12/23 07:30 04/12/23 07:30
04/11/23 04/12/23 04/13/23
06:59 06:59 06:59
Actual Weight 95.311 kg 95.339 kg
04/12/23 07:27
04/12/23 07:27
PT 16.2 Sec (11.4-14.6) H 04/09/23 07:20
INR 1.32 04/09/23 07:20
APTT 35.4 Sec (23.4-35.0) H 04/04/23 20:37
Triglycerides 181 mg/dl (10-149) H 04/05/23 11:16
TSH 3.42 uIU/ml (0.47-4.68) 04/05/23 10:11
Physical Exam
Constitutional: No acute distress
EENT: Anicteric
Cardiovascular: Rhythm & rate is regular, Pedal edema present and Systolic murmur present
Respiratory: Respiratory effort normal and Lungs clear to auscul.
Neuro/Psych: Alert and Oriented
Other: Skin
Data Reviewed
-
Date of Service: April 12, 2023
EKG: Other (tele SR)
Labs: Labs Reviewed by me
[2023-04-12] MEDS: HEPARIN 2200 UNITS INTRACATH (10:40)
[2023-04-12] MEDS: ROCEPHIN 2000 MG IV (11:21)
[2023-04-12] MEDS: STERILE WATER FOR INJECTION 20 ML IV (11:22)
[2023-04-12] MEDS: HEPARIN 5000 UNITS SC (11:22)
[2023-04-12] MEDS: DELTASONE 50 MG PO (11:22)
[2023-04-12] MEDS: PROTONIX 40 MG PO (11:22)
--- NOTE | 2023-04-12 12:32 | W.PN.NEPH.HD ---
Assessment
-
Seen on HD. no new complaints. VSS, access ok. await transfer
preliminary renal bx: ATN with red cell casts, consistent with a postinfectious ELLIE. mild C3 staining, no IgM, no evidence of cryoglobulin effect.
Progress Note - Hemodialysis
-
Date of Service: April 12, 2023
Duration: 3 hours
Potassium Bath: 3
Calcium Bath: 2.5
Opti-Dialyzer: 160
Ultrafiltration: Other (0.5kg)
Blood Flow: 400
Dialysate Flow: 600
Heparin: 0
EPO: 31560 units
--- NOTE | 2023-04-12 16:09 | W.DCSUMMARY ---
Discharge Summary
Discharge Data
Date of Admission: 04/04/23
Date of Discharge: 04/12/23
-
Pending Results: Yes
Additional Pending Results:
Hep B Core Total AB, pathology results
Hospital Course
72-year-old male with history of hepatitis C diagnosed a couple years ago.� Patient has not taken any treatment for unknown reasons.� Per daughter his PCP has been monitoring his blood test.� For the past few weeks he had been developing increased
lower extremity edema and later on developed a rash.� His appetite had been very poor and p.o. intake had gone down.� He denied any abdominal pain.� Patient has also noted dark urine for quite some time now. Maculopapular rash, Strep bovis
bacteremia, Infective Endocarditis, hx untreated Hep C with associate cirrhosis. Complement levels low. Cryoglobulin Positive. Serologies note high viral load Hep C. Blood culture appreciated Strep B intermediate sensitivity Levofloxacin,
sensitive to vancomycin. Rash otherwise stable painless no itching, improving. No fever or elevated white count noted. Blood cultures repeated persistently positive, 04/11 Blood culture NGTD. ID eval appreciated empiric vancomycin switched to
ceftriaxone, continued. ECHO appreciated EF 55-60% 1cm mobile echodensity associated with Aortic valve with moderate to severe AR, Moderate Severe MR noted as well. Cardio eval appreciated possible MAX Fri following EGD results Thurs
GI eval shadia EGD/colonoscopy planned for , GI discussed with Desmond Enriquez and patient was accepted under Dr. Nava's care for transfer potential benefit inpt Hep C treatment (patient and daughter in agreement and consented for transfer).
EGD 04/12 noted LA grade B reflux esophagitis w/ no bleeding, no varices, small hiatal hernia, normal duodenum, no specimens collected. Colonoscopy 04/12 noted 25 mm polyp ascending colon removed clips placed, pathology pending,
diverticulosis in sigmoid colon, Internal Hemorrhoids. 04/11 CT abd/pelvis oral contrast only appreciated Bilateral lower lobe consolidations compatible with atelectasis and/or pneumonia (more likely atelectasis, no significant respiratory
symptoms) with small bilateral pleural effusions. Small volume ascites. Markedly limited study in light of lack of intravenous contrast without gross focal inflammatory process involving the intestinal tract. Small simple right renal cysts.
Mildly enlarged prostate. Acute kidney injury, Urinalysis with RBC and granular casts, 4+ blood, home diclofenac and benazepril were held.
Nephrology eval appreciated completed IV steroids 500 mg daily x3 days transitioned to oral prednisone. Ultrasound of the kidneys- Neg. Renal biopsy completed Sunday 04/09 Cath placed and 1st HD session 04/10 as per nephro. Tolerated HD sessions
well. Preliminary renal bx noted ATN with red cell casts, consistent with a postinfectious ELLIE. mild C3 staining, no IgM, no evidence of cryoglobulin effect. IgG IgA High CRP elevated. [place] and Lambda light chains also elevated though ratio
normal. ANCA,anti-GBM pending. LAURI negative. ESR mildly elevated relative to age. Following EGD/ colonoscopy, patient was transferred to [place] when bed became available.
Discharge Plan
-
Patient Disposition: Acute Care Hospital
Condition: Fair
Discharge Orders:
Discharge Patient (As Directed); Ordered 04/11/23
Ordered By: Elan Lane
Discharge Date and Time
Discharge Date/Time: 04/12/23 17:20
[2023-04-12 19:42] LABS: Hepatitis B Core Ab, Total Negative (Negative)
== END 2023-04-12 17:20 | disposition short-term general hospital (02) | DRG 840 ==
LOC: 3 WEST ACU 20:01
PROVIDERS: Hospitalist; Internal Medicine Gastroenterology; Nurse Practitioner Family; Physician Assistant Medical; Radiology Vascular & Interventional Radiology; Specialist; ADMITTING PHYSICIAN Hospitalist; ATTENDING PHYSICIAN Internal Medicine; EMERGENCY PHYSICIAN Emergency Medicine; FAMILY PHYSICIAN Family Medicine; OTHER PHYSICIAN Internal Medicine; OTHER PHYSICIAN Internal Medicine Hematology & Oncology; OTHER PHYSICIAN Specialist; OTHER PHYSICIAN Student in an Organized Health Care Education/Training Program
PROC: 0TB03ZX Excision of Right Kidney, Percutaneous Approach, Diagnostic (ICD-10-PCS; 2023-04-09)
PROC: 02H633Z Insertion of Infusion Device into Right Atrium, Percutaneous Approach (ICD-10-PCS; 2023-04-09)
PROC: 0DJ08ZZ Inspection of Upper Intestinal Tract, Via Natural or Artificial Opening Endoscopic (ICD-10-PCS; 2023-04-12)
PROC: 0DBK8ZZ Excision of Ascending Colon, Via Natural or Artificial Opening Endoscopic (ICD-10-PCS; 2023-04-12)
DX: D89.1 Cryoglobulinemia (principal); I33.0 Acute and subacute infective endocarditis; N17.0 Acute kidney failure with tubular necrosis; K76.7 Hepatorenal syndrome; E87.1 Hypo-osmolality and hyponatremia; R78.81 Bacteremia; I10 Essential (primary) hypertension; B19.20 Unspecified viral hepatitis C without hepatic coma; D64.9 Anemia, unspecified; K76.0 Fatty (change of) liver, not elsewhere classified; N28.1 Cyst of kidney, acquired; R21 Rash and other nonspecific skin eruption; K74.60 Unspecified cirrhosis of liver; R16.2 Hepatomegaly with splenomegaly, not elsewhere classified; R63.4 Abnormal weight loss; K44.9 Diaphragmatic hernia without obstruction or gangrene; K21.00 Gastro-esophageal reflux disease with esophagitis, without bleeding; K57.30 Diverticulosis of large intestine without perforation or abscess without bleeding; K64.8 Other hemorrhoids; D12.2 Benign neoplasm of ascending colon; E83.51 Hypocalcemia; E88.09 Other disorders of plasma-protein metabolism, not elsewhere classified; M48.00 Spinal stenosis, site unspecified; R91.1 Solitary pulmonary nodule; B95.4 Other streptococcus as the cause of diseases classified elsewhere; E87.5 Hyperkalemia; G62.9 Polyneuropathy, unspecified; G89.29 Other chronic pain; R31.29 Other microscopic hematuria; Z68.30 Body mass index [BMI] 30.0-30.9, adult; Z79.899 Other long term (current) drug therapy; Z87.891 Personal history of nicotine dependence
CPT/HCPCS: 88305; 36556; 50200; 71046; 74176; 76775; 76937; 76942; 77001; 80048; 80053; 80202; 80306; 80307; 81003; 81015; 81099; 82043; 82105; 82140; 82248; 82306; 82550; 82570; 82595; 82607; 82728; 82746; 82784; 83010; 83516; 83521; 83540; 83550; 83615; 83690; 83718; 83721; 83930; 83935; 84155; 84156; 84165; 84300; 84443; 84478; 84550; 85014; 85018; 85025; 85027; 85045; 85379; 85384; 85610; 85652; 85730; 86038; 86140; 86160; 86334; 86704; 86706; 86803; 86850; 86900; 86901; 87040; 87070; 87149; 87186; 87205; 87340; 87389; 87522; 93005; 93306; 93970; 97116; 97162; 97166; 97530; 99152; 99153; 99284; C1752; G0257; J0885; P9047

== ENCOUNTER 2023-04-30 23:13 | Inpatient (IN) | payer MEDICARE, SELFPAY ==
[2023-04-30 19:35] VITALS: BMI 26.4
[2023-04-30 19:43] VITALS: BP 101/68
[2023-04-30 19:46] VITALS: BP 101/68
[2023-04-30 20:00] VITALS: BP 114/42
[2023-04-30 20:29] LABS: % Immature Granulocytes 0.7 % (0-0.5); % Monocytes 12.6 % (1.7-9.3); % Neutrophils 69.7 % (42.2-75.2); Absolute Eosinophils 0.1 10^3/uL (0-0.7); Absolute Lymphocytes 0.4 10^3/uL (1.2-3.4); Absolute Monocytes 0.4 10^3/uL (0.1-0.6); Hemoglobin 8.1 g/dL (13.0-18.0); Mean Corp Hgb Conc. 35.2 g/dL (33.0-37.0); Mean Corpuscular Volume 88.1 fL (80.0-94.0); Mean Platelet Volume 11.6 fL (7.4-10.4); Nucleated Red Blood Cells % 0 % (-); Platelet Count 132 10^3/uL (130-400); Red Blood Cell Count 2.61 10^6/uL (4.70-6.10); Red Cell Dist. Width 20.5 % (11.5-14.5); White Blood Cell Count 2.9 10^3/uL (4.8-10.8)
[2023-04-30 20:35] LABS: Urine Albumin Negative (Neg - Trace); Urine Bilirubin Negative (Negative); Urine Character Clear (Clear); Urine Color Yellow; Urine Glucose Negative (Negative); Urine Ketone Negative (Negative); Urine Leukocyte Negative (Negative); Urine Nitrite Negative (Negative); Urine Occult Blood 3+ (Negative); Urine Urobilinogen Negative (Neg - 1+)
[2023-04-30 20:41] LABS: Lactic Acid 1.5 mmol/L (0.7-2.0)
[2023-04-30 20:42] LABS: INR 1.15; PT 14.5 Sec (11.4-14.6)
[2023-04-30 20:43] LABS: Urine Red Blood Cell 21-25 /HPF (0-2); Urine Squamous Cell 0-2 /LPF (Few); Urine White Cell None Seen /HPF (0-5)
[2023-04-30 20:49] LABS: ALT (SGPT) 27 U/L (0-50); AST (SGOT) 45 U/L (17-59); Albumin 3.5 g/dl (3.5-5.0); Alkaline Phosphatase 57 U/L (38-126); Blood Urea Nitrogen 104 mg/dl (9-20); Calcium 8.7 mg/dl (8.4-10.2); Carbon Dioxide 33 mmol/L (22-30); Chloride 86 mmol/L (98-107); Estimated Creatinine Clearance 28 ml/min; Glucose 116 mg/dl (70-99); Potassium 3.2 mmol/L (3.5-5.1); Sodium 131 mmol/L (135-145); Total Bilirubin 0.8 mg/dl (0.2-1.3); Total Protein 6.8 g/dl (6.3-8.2)
[2023-04-30 20:50] LABS: NT-proBNP 20800 pg/ml
[2023-04-30 21:00] VITALS: BP 105/37
[2023-04-30] MEDS: TYLENOL 650 MG PO (21:07)
[2023-04-30] MEDS: NSS 500 IV (21:09)
[2023-04-30 21:20] LABS: Magnesium 1.8 mg/dl (1.6-2.3)
--- NOTE | 2023-04-30 21:26 | ED.GENMED ---
History of Present Illness
General
Chief Complaint: Weakness
Source: patient
Exam Limitations: none
Time Seen by Provider: 04/30/23 20:11
Nursing documentation reviewed up to this point in time: agreed with
Travel History
Have you had any contact with someone who has COVID-19?: No
Do you have any symptoms of coronavirus? Fever > 100 degrees, chills, cough, shortness of breath, sore throat, loss of taste or smell, muscle aches, or headache?: Yes
Symptoms:: SOB,fever
History of Present Illness
History of Present Illness:
Patient currently being treated for endocarditis via PICC line, presents to ED secondary to increased generalized weakness over the past 24 hours, which also caused him to fall last night, without any injury. Upon arrival, patient is found to be
febrile, which he was not aware of. Denies headache. Denies dizziness. Denies chest pain. Denies shortness of breath. Denies coughing. Denies abdominal pain. Denies nausea, vomiting, or diarrhea. In addition, patient is currently being
treated for hepatitis C.
Past History
Past History
ED Past Medical History: HTN and Other (Hep C)
ED Past Surgical History: None
Social History
Tobacco: Non-smoker
Alcohol: None
Drug: None
Personal:
Living: with family
Employment: Employed
Review of Systems
Review of Systems
Allergies reviewed?: Yes
All Other Systems: ROS reviewed and negative except as documented in HPI and ROS
Constitutional: Reports no symptoms
EENT: Reports no symptoms
Respiratory: Reports no symptoms
Cardiac: Reports no symptoms
ABD/GI: Reports no symptoms
: Reports no symptoms
Musculoskeletal: Reports no symptoms
Skin: Reports no symptoms
Neurological: Reports weakness
Phy Exam
Physical Exam
Physical Exam:
Physical Exam
General: mild distress, not acutely ill. febrile. weak appearing.
Head: nc/at. eomi
Neck: supple. no meningeal signs. normal posterior pharynx
Heart: s1/s2 regular rate and rhythm, systolic ejection murmur. equal radial pulses.
Lungs: no acute respiratory distress. clear bilaterally
Abdomen: normal bowel sounds. not tender.
Neuro: alert and oriented. no focal neurological deficits
Skin: no rash
Psychiatric: well kept. interactive and cooperative
Extremities: no edema. no calf tenderness.
Course
Orders/Labs/Results
Orders:
Orders
04/30/23 19:38
Portable Chest Xray [CR Chest Portable - 1 View] Urgent
Comment:
Reason For Exam: picc line and fever
Reason Study Needs to be Portable: Patient Unstable
04/30/23 19:41
Electrocardiogram (*1) Urgent
Reason for Study: Other
Other Reason for Exam: Possible Sepsis
Cardiac Monitoring- Treatment ONCE
EKG- Treatment ONCE
Straight cath- Treatment ONCE
O2 Therapy [RESP] Urgent
Titrate/Wean O2 to maintain O2 sat greater than (%): 93
Special Instructions: TO MAINTAIN CONTINUOUS O2 SATS > OR = 93%
Pulse Ox/cont/shift [RESP] Urgent
Quantity: 1
Special Instructions: CONTINUOUS
04/30/23 20:14
Complete Blood Count/With Diff Urgent
Comprehensive Metabolic Panel Urgent
Lactic Acid Q4H
Comment: ON ICE, CANCEL 2ND ORDER IF FIRST LACTIC ACID LEVEL <2
Magnesium Urgent
Comment: ADD ON
Prothrombin Time Urgent
Urinalysis Reflex To Culture Urgent
Date Specimen was Collected: 04/30/23
Time Specimen was Collected: 19:41
Urine Microscopic Reflex Cult Urgent
Blood Culture Q30M
AVERY Source: Blood/Venous
Specimen Description:
Comment: FROM 2 SEPARATE SITES
04/30/23 20:21
Pro-BNP [NT-proBNP] Urgent
04/30/23 20:48
0.9% Sodium Chloride 500 ml [Nss] 500 ml IV BOLUS
Acetaminophen [Tylenol] 650 mg PO NOW STA
04/30/23 21:00
Add On- LAB Urgent
Tests Added?: magnesium
Bladder Scan- Treatment ONCE
04/30/23 21:15
COVID-19 Antigen Urgent
Source: Nasal Swab
Blood Culture Q30M
AVERY Source: Blood/Venous
Specimen Description:
Comment: FROM 2 SEPARATE SITES
Influenza A+B Rapid Molecular Urgent
AVERY Source: Nasal Swab
Specimen Description:
04/30/23 21:38
Lidocaine 2% [Lidocaine Uro-Jet 2%] 1 syringe .ROUTE .[facility]
04/30/23 21:39
Lidocaine 2% [Lidocaine Uro-Jet 2%] 1 syringe TOPICAL NOW STA
04/30/23 21:43
Schofield [Schofield Placement- Treatment] ONCE
Reason for insertion: Acute Retention
04/30/23 22:59
Admit/Transfer Patient As Directed
Co-Sign Provider:
Level of Care: Inpatient admission
Assign to:: IMU- Intermediate Care
Physician / Group: Robby
Diagnosis: Bacteremia, Endocarditis
Reason for Hospitalization: Bacteremia / Endocarditis
Expected length of stay greater than two midnights?: Yes
ELOS- Estimated Length of Stay in days: 4
I certify the patient meets the requirements for IP care: Yes
04/30/23 23:00
Code Status As Directed
Resuscitation Status: Full Code
04/30/23 23:06
Potassium Chloride [KCl] 40 meq PO NOW STA
05/01/23 00:00
Acetaminophen [Tylenol] 650 mg PO Q4HPRN PRN
Oxycodone [Roxicodone] 5 mg PO Q8H PRN
05/01/23 00:00
Consult Notification Routine
Specialty to Notify: Nephrology
INFECTIOUS DISEASE CONSULT Routine
Consulting Provider: Aby Kumar
Was physician already notified: Yes
Reason for consult: SBE
NEPHROLOGY CONSULT Routine
Consulting Provider: Rogelio Torres
Was physician already notified: No
Reason for consult: Recovering ELLIE / Edema
Activity As Directed
Activity Level: Ambulate
With Assistance
EKG with chest pain [ECG as needed] As Directed
ECG as needed for:: Chest Pain
I/O [Intake/ Output] As Directed
Frequency: Per unit guidelines
Vital Signs As Directed
Frequency: Per unit guidelines
Weight As Directed
Frequency: Daily
Oxygen Therapy [O2 Therapy] [RESP] Routine
Titrate/Wean O2 to maintain O2 sat greater than (%): 94
Rx Incentive Spirometry [RESP] Routine
Frequency: q1h while awake
Ot Eval And Treat Routine
PT Consult [Pt Eval And Treat] Routine
Activity Level: Ambulate
With Assistance
DX Deep Vein Thrombosis Video Routine
05/01/23 Breakfast
Regular
Complete Blood Count/No Diff IN AM
05/01/23 08:00
Bumetanide [Bumex] 4 mg PO BID
Gabapentin [Neurontin] 300 mg PO BID
Heparin 5,000 units SC Q12
Metoprolol [Lopressor] 12.5 mg PO BID
Potassium Chloride [KCl] 40 meq PO DAILY
ceftriaxone 2 grams IV DAILY
sofosbuvir-velpatasvir [Epclusa] 0 tablet PO DAILY
Abnormal Lab Results
04/30/23
20:14
WBC 2.9 L 10^3/uL
(4.8-10.8)
RBC 2.61 L 10^6/uL
(4.70-6.10)
Hgb 8.1 L g/dL
(13.0-18.0)
Hct 23.0 L %
(39.0-52.0)
RDW 20.5 H %
(11.5-14.5)
MPV 11.6 H fL
(7.4-10.4)
Absolute Lymphs (auto) 0.4 L 10^3/uL
(1.2-3.4)
Immature Gran % 0.7 H %
(0-0.5)
Lymphocytes % 14.0 L %
(20.5-51.1)
Monocytes % 12.6 H %
(1.7-9.3)
Sodium 131 L mmol/L
(135-145)
Potassium 3.2 L mmol/L
(3.5-5.1)
Chloride 86 L mmol/L
(98-107)
Carbon Dioxide 33 H mmol/L
(22-30)
BUN 104 H* mg/dl
(9-20)
Creatinine 2.5 H mg/dL
(0.7-1.3)
Glucose 116 H mg/dl
(70-99)
Ur Occult Blood Reflex 3+ A
(Negative)
Urine RBC 21-25 A /HPF
(0-2)
04/30/23 20:14
04/30/23 20:14
Vital Signs
Initial and Last Documented VS:
Initial Vital Signs
BP Pulse Ox
101/68 96
04/30/23 19:43 04/30/23 19:43
Last Documented Vital Signs
Temp Pulse Resp BP Pulse Ox
98.8 F 71 18 98/38 97
04/30/23 23:30 05/01/23 02:15 05/01/23 02:15 05/01/23 01:00 05/01/23 02:00
MDM/Problems Addressed
MDM/Problems Addressed:
History and exam concerning for ongoing bacteremia, likely secondary to endocarditis, despite prolonged course of antibiotic treatment via ceftriaxone.
Blood culture via peripheral blood as well as PICC line pending.
Discussed with Dr. Kumar, ID, who recommends continuing ceftriaxone for now.
Per family, patient has received his daily dose of Ceftriaxone earlier today.
*Critical Care Note
Total Time (30-74mins, 75-104mins- exclusive of procedures): Not Applicable
ED Attending Note
-
Portions of this chart may have been created with voice recognition software.� Occasional wrong word or��sound alike� substitutions may have occurred due to the inherent limitations of voice recognition software.
Discharge Plan
Departure
Patient Disposition: Admit
Date of Disposition: 04/30/23
Time of Disposition: 21:47
Admit to: Telemetry
Presentation/result/management discussed w/ accepting MD/DO: Hospitalist
Discharge Problem:
Endocarditis, Fever
Interventions
Interventions:
*Risk Screen - Suicide Last Done: 04/30/23 19:46
*General Assessment Last Done: 04/30/23 19:46
*Neglect/Abuse Screening Last Done: 04/30/23 19:46
ED- Fall Risk Assessment Last Done: 04/30/23 19:46
*ED COVID-19 Vaccine History Last Done: 04/30/23 19:46
ED- Cardiac Assessment Last Done: 04/30/23 20:00
ED- Neurological Assessment Last Done: 04/30/23 20:00
ED- Pulmonary Assessment Last Done: 04/30/23 20:00
[2023-04-30] MEDS: LIDOCAINE URO-JET 2% 1 SYRINGE TOPICAL (21:40)
[2023-04-30 22:17] LABS: COVID-19 Antigen Negative (Negative)
[2023-04-30 23:00] VITALS: BP 97/43
--- NOTE | 2023-04-30 23:07 | HPS.HSE ---
Family Physician
-
Family Physician: Garfield Kelly
Chief Complaint
-
Weakness / Fatigue
History of Present Illness
Patient is a 72y M with PMH significant for Hep C and recent admission for S bovis bacteremia / endocarditis who presents to ED complaining of generalized weakness and fatigue. Patient was hospitalized at from 04/04 - 04/12 for ELLIE, bacteremia
and suspected endocarditis. Patient had blood cultures positive for Strep bovis and was treated with IV ceftriaxone. GI / endoscopic evaluation was essentially unremarkable.
Patient had ELLIE presumably post-infectious in origin and required renal replacement therapy during his time at . Renal biopsy was done showing evidence of C3 complement deposition and acute tubular injury.
Patient was transferred to [facility] on 04/12 for evaluation for Hep C treatment. He was seen at that facility and started on Epclusa.
Further evaluation for possible valvuloplasty was also recommended; however, patient declined at this time and preferred discharge home for further outpatient follow-up. He was discharged home on Sunday.
Patient notes that he felt fairly well on Sunday and Sunday. Today he felt much more weak and fatigued and had difficulty with ADLs.
He has continued his daily IV ceftriaxone and had his dose this AM.
Patient presented to the ED this evening where he is noted to be febrile at 101.7.
He has no specific complaints of pain, cough, dyspnea, diarrhea, urinary complaints, etc.
Medical History
Past Medical History
Past Medical History: Reports Other
Additional Past Medical History:
Hypertension
Hepatitis C
S bovis Bacteremia
AV Endocarditis
ELLIE requiring HD
Past Surgical History: Reports Other
Additional Past Surgical History:
R IJ HD Cath (removed)
RUE PICC
Renal Biopsy
Social History
Tobacco: Non-smoker
Alcohol: None
Drug: Marijuana (Occasional) and Other (Former IV drug abuse, 50 years ago)
Family History
Family History: Not pertinent
Allergies / Home Medications
Allergies reflects when Allergies were last updated in [facility].
Home Medications with original date entered in [facility]
Allergy/Medication List:
Allergies
Allergy/AdvReac Type Severity Reaction Status Date / Time
No Known Allergies Allergy Verified 04/30/23 19:46
Home Medications
cyclobenzaprine 5 mg tablet 5 mg PO BID PRN muscle spasms/back pain 04/04/23
bumetanide 2 mg tablet 4 mg PO TID 04/30/23
ceftriaxone 2 gram intravenous solution 2 g IV DAILY 04/30/23
gabapentin 300 mg capsule 300 mg PO BID 04/30/23
metolazone 5 mg tablet 5 mg PO DAILY 04/30/23
metoprolol tartrate 25 mg tablet 12.5 mg PO BID 04/30/23
oxycodone 5 mg tablet 5 mg PO Q8H PRN severe pain 04/30/23
potassium chloride 20 mEq tablet,extended release 40 meq PO DAILY 04/30/23
sofosbuvir 400 mg-velpatasvir 100 mg tablet (Epclusa) 1 tab PO DAILY 04/30/23
Review of Systems
-
History Source: Patient
A 12 point ROS was completed and negative except as noted: Yes
Constitutional: Reports Fatigue; Denies Fever or Chills
EENT: Denies Sore Throat
Respiratory: Denies Cough or Trouble Breathing
Cardiac: Denies Chest Pain or Palpitations
Abdomen/GI: Reports Anorexia; Denies Abdominal Pain, Nausea, Vomiting or Diarrhea
: Denies Dysuria, Frequency or Flank Pain
Musculoskeletal: Reports Edema; Denies Joint Pain
Skin: Reports Rash (improving)
Neurological: Denies Dizzy or Headache
Psych: Denies Depression or Anxiety
Physical Exam
Vital Signs
Vital Signs
Temp Pulse Resp BP Pulse Ox
101.7 F H 90 16 101/68 94
04/30/23 19:46 04/30/23 19:46 04/30/23 19:46 04/30/23 19:46 04/30/23 20:00
Physical Exam
General: Other (72y chronically-ill appearing M in no acute distress.)
HEENT: Moist mucous membranes and PERRLA
Respiratory: Clear; No Wheezes, Rales or Rhonchi
Cardiac: S1/S2, Regular Rhythm and Murmur (II/ ROSE)
GI: Soft, Non Tender, Non Distended and Normal Bowel Sounds
Musculoskeletal: No Clubbing, No Cyanosis and Other (2+ pitting edema b/l LEs. Purpura significantly improved from prior. Non-tender.)
Neuro: AO x 3 and Nonfocal/grossly intact
Hematologic/Lymphatic: Other (RUE PICC in place.)
Laboratory Results
-
04/30/23 20:14
04/30/23 20:14
Laboratory Results
PT 14.5 Sec (11.4-14.6) 04/30/23 20:14
INR 1.15 04/30/23 20:14
Lactic Acid 1.5 mmol/L (0.7-2.0) 04/30/23 20:14
Total Bilirubin 0.8 mg/dl (0.2-1.3) 04/30/23 20:14
AST 45 U/L (17-59) 04/30/23 20:14
ALT 27 U/L (0-50) 04/30/23 20:14
Alkaline Phosphatase 57 U/L (38-126) 04/30/23 20:14
Impression/Plan
-
A/P: Patient is a 72y M with PMH significant for HTN and Hep C with recent hospitalization for S bovis bacteremia, endocarditis and severe ELLIE who presents to ED complaining of weakness and is noted to have fever.
Fever / Weakness
Strep bovis Bacteremia
Aortic Valve Endocarditis
- Admit for further evaluation and treatment.
- Last positive BCx were 04/10. Negative 04/11, 2/8 and at [facility].
- Continue IV ceftriaxone for now.
- Repeat blood cultures.
- ID evaluation.
- Patient had MAX done at [place] showing large echo-mobile density on the aortic valve c/w endocarditis.
- Valvuloplasty was discussed, but patient declined at this time.
- Consider local CT surgery evaluation.
- No new focal complaints to suggest other / new infectious etiology.
ELLIE
Uremia
Hypokalemia
- Recently dialysis dependent ELLIE.
- Last HD session was > 1 week ago.
- Renal function has remained stable since that time.
- Decrease current diuretic regimen for now given significant azotemia / hypokalemia.
- Follow for continued renal recovery.
- Nephrology evaluation for diuretic management / further evaluation.
Chronic Hep C
- Recently started on Epclusa.
- Continue current regimen - patient brought medication with him.
Lumbar DDD
- Current symptoms / episode started with low back pain / weakness that began in February 2023.
- Patient underwent LESI x 2 and had significant decline following second injection.
- Some continued / intermittent pain.
- MRI recommended at [facility] to rule out discitis / osteomyelitis but patient declined for fear of MRI.
- Would agree with MRI - especially prior to any valvuloplasty, etc.
- Consider MRI here - with sedation if necessary.
Palpable Purpura
- ? secondary to Hep C versus bacteremia v other.
- Significantly improved from prior.
- On high-dose steroids briefly for ELLIE - since discontinued.
- Follow for any new / recurrent symptoms.
DVT Prophylaxis: Subcut Heparin
Code Status: Full
[2023-04-30] MEDS: KCL 40 MEQ PO (23:36)
[2023-05-01] VITALS (23 sets, daily range): BP systolic 85–107; BP diastolic 37–82; PULSE 78–84; O2SAT 87–96; BMI 25.6
--- NOTE | 2023-05-01 03:27 | PTCARENOTE ---
Addendum entered by Allyssa Phillips RN 05/01/23 04:25:
Pt hypotensive, manual BP 88/38. Per ER nurse, carter output of 650mL clear yellow prior to transferring to IMU. Plus another 150mL emptied just now. Pt on 2L NC, lungs sound diminished throughout, no work of breathing observed at this time. LE
edematous. RECEIVING WEIGHER updated on all of this and ordered another 500mL NS bolus for BP support.
Original Note:
Patient arrived to room 3344 at around 0245. Oriented to room and use of call braswell. Tele applied showing NSR with frequent PVCs. Denies any pain. Pt appears forgetful to admission questions and is vague about answers. Pt stated they 'did every test
in the book at [place] and took blood but couldn't find the vein and yadda yadda yadda'
RUE PICC line intact, IV team aware and ok to use. Coccyx appears to have a bruise and stage 2, Right buttock has a bruise. Pt stated he fell a few days ago. LE +2-3 edema R>L. Scattered petechiae to LE. Large purple bruise to L posterior forearm
extending to inner bicep. along with scattered bruising to bilat arms. Bed alarm set for safety. Call braswell within reach.
[2023-05-01 04:07] LABS: Hematocrit 21.3 % (39.0-52.0); Hemoglobin 7.5 g/dL (13.0-18.0); Mean Corp Hgb Conc. 35.2 g/dL (33.0-37.0); Mean Corpuscular Hgb 31.1 pg (27.0-31.0); Mean Corpuscular Volume 88.4 fL (80.0-94.0); Mean Platelet Volume 11.4 fL (7.4-10.4); Platelet Count 120 10^3/uL (130-400); Red Blood Cell Count 2.41 10^6/uL (4.70-6.10); Red Cell Dist. Width 20.3 % (11.5-14.5); White Blood Cell Count 3.1 10^3/uL (4.8-10.8)
[2023-05-01 04:31] LABS: ALT (SGPT) 24 U/L (0-50); AST (SGOT) 43 U/L (17-59); Albumin 3.1 g/dl (3.5-5.0); Alkaline Phosphatase 54 U/L (38-126); Blood Urea Nitrogen 102 mg/dl (9-20); Calcium 8.5 mg/dl (8.4-10.2); Carbon Dioxide 34 mmol/L (22-30); Chloride 88 mmol/L (98-107); Direct Bilirubin 0.8 mg/dl (0.0-0.4); Estimated Creatinine Clearance 30 ml/min; Glucose 107 mg/dl (70-99); Potassium 3.4 mmol/L (3.5-5.1); Sodium 132 mmol/L (135-145); Total Bilirubin 0.8 mg/dl (0.2-1.3); Total Protein 6.2 g/dl (6.3-8.2); eGFR 28.14
[2023-05-01] MEDS: NSS 500 IV (04:31)
[2023-05-01] MEDS: HEPARIN 5000 UNITS SC ×2 (08:26→19:46)
[2023-05-01] MEDS: KCL 40 MEQ PO (08:27)
[2023-05-01] MEDS: STERILE WATER FOR INJECTION 20 ML IV (08:27)
[2023-05-01] MEDS: NEURONTIN 300 MG PO ×2 (08:27→19:46)
[2023-05-01] MEDS: LOPRESSOR 12.5 MG PO ×2 (08:27→19:46)
[2023-05-01] MEDS: BUMEX 4 MG PO ×2 (08:28→19:46)
[2023-05-01] MEDS: ROCEPHIN 2000 MG IV (08:28)
[2023-05-01] MEDS: ROXICODONE 5 MG PO ×2 (08:32→15:59)
[2023-05-01] MEDS: NON-FORMULARY ITEM 1 TABLET PO (09:22)
--- NOTE | 2023-05-01 10:24 | CON.ID ---
Addendum entered and electronically signed by Sherrie Hawk MD 05/01/23 16:35:
no ascites and no dvt
HR improved this afternoon but mildly hypotensive
repeat CXR in the AM 2 views
Addendum entered and electronically signed by Sherrie Hawk MD 05/01/23 15:25:
abd us done but not yet read
Addendum entered and electronically signed by Sherrie Hawk MD 05/01/23 13:16:
chart checked - US pending
Original Note:
Consultation
-
Date/Time Consultation Requested: 05/01/23 0:00
Date/Time Consultation Performed: 05/01/23 10:25
Requesting Provider: Dr Bustamante
Performing Provider: Dr Hawk
Reason for Consultation: SBE
Chief Complaint / Past History
Chief Complaint
weakness/fatigue
History of Present Illness
Mr Mayer is a 72 year old male with history notable for cirrhosis due to untreated hep C (recently started epclusa at [place]), probable endocarditis due to S bovis on OPAT with ceftriaxone - valvuloplasty was recommended however patient
declined, cyroglobulinemia. He was discharged to home from [place] Sunday, felt well sat/sunday, then yesterday (sunday) felt much more weak and represented here. Of note he has had EGD and colonoscopy with colonic polyps no tumor. Reports no
missed doses of ceftriaxone. Denies: hedache, sinus tenderness, sore throat, cough, sputum production, nausea, vomiting, diarrhea, constipation, dysuria, new rashes, new joint pains, redness swelling or tenderness from the PICC, missed doses of
ceftriaxone.
Since arrival this visit he has been febrile to 101.7 orally, BP hypotensive persistent - not yet on pressors, HR normal, RR normal, wbc 3.1, hgb 7.5, plt 120, no L shift shift on arrival - eos present in normal amounts, CR 2.4 declining from last
admission when it peaked at 4.5, t bili 0.8, d bili 0.8, ast 4, alt 24, alk phos 54, probnp 20,000, UA no pyuria, 3-5 hyaline casts/hpf, covid ag neg x1, CXR this visit right basilar pneumonia - improved,
Past History
Additional Past Medical History:
Hypertension
Hepatitis C - on treatment
S bovis Bacteremia
AV Endocarditis
ELLIE requiring HD
Additional Past Surgical History:
Renal Biopsy
Allergy History:
No Known Allergies Allergy (Verified 04/30/23 19:46)
Medications Reviewed: Yes
Social History
Tobacco: Non-Smoker
Alcohol: None
Drug: Marijuana and IVDA (very remote)
Family History
Family History: Not Pertinent
Review of Systems
Review of Systems
General: Fever and Chills
All systems: All other systems were reviewed and were negative
Vital Signs
Temp Pulse Resp BP Pulse Ox
97.3 F 75 12 89/41 97
05/01/23 08:00 05/01/23 08:00 05/01/23 08:00 05/01/23 08:00 05/01/23 08:00
Physical Exam
Physical Exam
Constitutional: Acutely Ill and Chronically Ill
Cardiovascular: Regular Rate and S1/S2; Negative Murmur or Rub
Pulmonary: Clear and Symmetric; Negative Wheezes, Rales or Rhonchi
Gastrointestinal: Soft, Non Tender, Distended (+ fluid wave) and Normal Bowel Sounds
Extremities: Other (swollen )
Skin: Warm, Dry and Rash (bruising of the bilateral lower extremities); Negative Jaundice
Lines: PICC (no erythema, warmth, tenderness or drainage)
Lab / Diagnostic Study Results
05/01/23 03:18
05/01/23 03:18
Abs Immat Gran (auto) 0.0 10^3/uL (0-0.05) 04/30/23 20:14
Absolute Neuts (auto) 2.0 10^3/uL (1.4-6.5) 04/30/23 20:14
Absolute Lymphs (auto) 0.4 10^3/uL (1.2-3.4) L 04/30/23 20:14
Absolute Monos (auto) 0.4 10^3/uL (0.1-0.6) 04/30/23 20:14
Absolute Basos (auto) 0.0 10^3/uL (0-0.2) 04/30/23 20:14
Immature Gran % 0.7 % (0-0.5) H 04/30/23 20:14
Neutrophils % 69.7 % (42.2-75.2) 04/30/23 20:14
Lymphocytes % 14.0 % (20.5-51.1) L 04/30/23 20:14
Monocytes % 12.6 % (1.7-9.3) H 04/30/23 20:14
Eosinophils % 2.0 % (0-6) 04/30/23 20:14
Basophils % 1.0 % (0-2) 04/30/23 20:14
PT 14.5 Sec (11.4-14.6) 04/30/23 20:14
INR 1.15 04/30/23 20:14
Lactic Acid Cancelled 04/30/23 23:45
Ur Squamous Epith Cells 0-2 /LPF (Few) 04/30/23 20:14
Microbiology Results
Micro:
05/01/23 03:04 MRSA Screen - Pending
Nose
04/30/23 21:15 Influenza Types A & B (TERRELL) - Final
Nasal Swab Negative for Influenza A & B, NAAT
Negative results must be combined with clinical observations
and patient history.
Nucleic Acid Amplification test (NAAT)performed on the
[employer] platform.
04/30/23 21:15 Blood Culture - Pending
Blood/Venous
04/30/23 20:14 Blood Culture - Pending
Blood/Venous
Assessment / Plan
Relapsed Fever
Sepsis, possibly developing septic shock
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
Cirrhosis - unclear if compensated
Pancytopenia
CKD
- blood cultures x2 in progress no growth to date
- ua negative
- picc line without induration, tenderness or drainage
- covid ag neg x1, influenza neg
- cxr minimal improvement from last visit; unlikely pneumonia clinically
- US abd limited - ascites? if sufficient ascites will call IR to arrange paracentesis
- likely DVT of the RLE - US
- with hypotension drug fever unlikely
- continue streptococcal coverage through at least 3 for endocarditis
- start vanc/cefepime/levofloxacin
- suspect patient may require pressors as the day goes on - discussed with IM service
- to complete course of epclusa
- follow clinically
Care Review
Plan reviewed with: Physician (Dr Gallegos)
--- NOTE | 2023-05-01 10:45 | PTCARENOTE ---
Got OOB to chair with PT/OT- Tele alarming HRs 130s-140s - irregular, AF- BP 104/60- D/w Dr. Gallegos- EKG completed - rates occasionally drop to 110s but remain mostly 120s-130s. Comfortable sitting up in a chair. Radha given for 8/10 lower leg
pain with out relief yet but is tolerable.
--- NOTE | 2023-05-01 10:58 | PHA.VAN.IN ---
Assessment
- Assessment
Renal Function: Unknown baseline (recent ELLIE requiring HD, last session > 1 week ago)
Concomitant Antimicrobials: cefepime, levofloxacin
Plan
- Plan
Initial / Loading Dose: 2000mg - administration pending
Maintenance Regimen: dosing by level
Monitoring: random 05/02 06
Pharmacokinetics Vancomycin I
- -
Patient Age: 72
Patient Sex: Male
Vancomycin Day #: 1
Indication: Bacteremia
Requesting Provider: Dr. Hawk
Pertinent Antimicrobial Allergies:
NKDA
Height / Weight:
Height 5 ft 11 in
Actual Weight 83.1 kg
Pertinent Past Medical History: HCV (sofosbuvir/velpatasvir), S. bovis bacteremia
- Vital Signs / Lab Results
Temp Pulse Resp BP Pulse Ox
97.3 F 132 22 103/60 93
05/01/23 08:00 05/01/23 10:00 05/01/23 10:00 05/01/23 10:00 05/01/23 09:05
Lab Results - Hematology
04/30/23 05/01/23
20:14 03:18
WBC 2.9 L 3.1 L
Lab Results - Chemistry
04/30/23 05/01/23
20:14 03:18
BUN 104 H* 102 H*
Creatinine 2.5 H 2.4 H
Estimated Creat Clear 28 30
Albumin 3.5 3.1 L
04/30/23 04/30/23
20:14 23:45
Lactic Acid 1.5 Cancelled
Lab Results - Urine
04/30/23
20:14
Urine Nitrite (Reflex) Negative
Leukocyte Esterase Rfl Negative
Urine WBC (Reflex) None seen
Ur Squamous Epith Cells 0-2
Microbiology Results
04/30/23 21:15 Influenza Types A & B (TERRELL) - Final
Nasal Swab Negative for Influenza A & B, NAAT
Negative results must be combined with clinical observations
and patient history.
Nucleic Acid Amplification test (NAAT)performed on the
[employer] platform.
--- NOTE | 2023-05-01 11:02 | PTCARENOTE ---
Converted back to SR- will repeat EKG
--- NOTE | 2023-05-01 12:20 | W.CON.NEPH ---
Consultation
-
Date/Time Consultation Requested: May 01, 2023 9 AM
Date/Time Consultation Performed: May 01, 2023 12 PM
Requesting Provider: Dr. Bustamante
Performing Provider: Dr. Torres
Reason for Consultation: ELLIE
Medical History
-
Chief Complaint: ELLIE
History of Present Illness:
Patient is a 72y M with Hep C and recent admission for S bovis bacteremia/AV endocarditis who presents to ED complaining of generalized weakness and fatigue.� Patient was hospitalized at from 04/04 - 04/12 for ELLIE, bacteremia and suspected
endocarditis.� Patient had blood cultures positive for Strep bovis and was treated with IV ceftriaxone.� GI / endoscopic evaluation was unremarkable.�
Patient had ELLIE felt to be post-infectious in origin and required renal replacement therapy during his time at .� Renal biopsy was done showing mild C3 complement deposition, ATN, no IgM. This was consistent with a postinfectious ELLIE without
evidence of cryoglobulinemia.
Patient was transferred to [facility] on 04/12 for Hep C treatment.� He was seen at that facility and started on Epclusa. He was able to come off dialysis about 1 week ago. His dialysis catheter was removed.
Further evaluation for possible valvuloplasty was also recommended; however, patient declined at this time and preferred discharge home for further outpatient follow-up.� He was discharged home on Sunday.
Patient notes that he felt fairly well on Sunday and Sunday.� Today he felt much more weak and fatigued and had difficulty with ADLs.
He has continued his daily IV ceftriaxone and had his dose this AM.
Patient presented to the ED febrile at 101.7.
He has no specific complaints of pain, cough, dyspnea, diarrhea, urinary complaints, etc.
He was noted to be hypokalemic. He is maintained on high-dose Bumex for lower extremity edema.
Past Medical History
Hypertension, hepatitis C, back pain, infectious endocarditis, aortic valve vegetation,
Social History
History of IV drug use with heroin, no tobacco or alcohol
Family History
No CKD
Allergies / Home Medications
Allergy/AdvReac Type Severity Reaction Status Date / Time
No Known Allergies Allergy Verified 04/30/23 19:46
Medication Instructions Recorded Confirmed Type
cyclobenzaprine 5 mg tablet 5 mg PO BID PRN muscle spasms/back 04/04/23 04/30/23 History
pain
bumetanide 2 mg tablet 4 mg PO TID 04/30/23 04/30/23 History
ceftriaxone 2 gram intravenous 2 g IV DAILY 04/30/23 04/30/23 History
solution
gabapentin 300 mg capsule 300 mg PO BID 04/30/23 04/30/23 History
metolazone 5 mg tablet 5 mg PO DAILY 04/30/23 04/30/23 History
metoprolol tartrate 25 mg tablet 12.5 mg PO BID 04/30/23 04/30/23 History
oxycodone 5 mg tablet 5 mg PO Q8H PRN severe pain 04/30/23 04/30/23 History
potassium chloride 20 mEq 40 meq PO DAILY 04/30/23 04/30/23 History
tablet,extended release
sofosbuvir 400 mg-velpatasvir 100 1 tab PO DAILY 04/30/23 04/30/23 History
mg tablet (Epclusa)
Review of Systems
-
No chills or sweats. No chest pain or shortness of breath. The remainder of the complete review of systems was negative.
Physical Exam
Vital Signs
Vital Signs
Temp Pulse Resp BP Pulse Ox
97.3 F 132 22 103/60 93
05/01/23 08:00 05/01/23 10:00 05/01/23 10:00 05/01/23 10:00 05/01/23 09:05
Lab Results
WBC 3.1 10^3/uL (4.8-10.8) L 05/01/23 03:18
RBC 2.41 10^6/uL (4.70-6.10) L 05/01/23 03:18
Hgb 7.5 g/dL (13.0-18.0) L 05/01/23 03:18
Hct 21.3 % (39.0-52.0) L 05/01/23 03:18
Plt Count 120 10^3/uL (130-400) L 05/01/23 03:18
Sodium 132 mmol/L (135-145) L 05/01/23 03:18
Potassium 3.4 mmol/L (3.5-5.1) L 05/01/23 03:18
Chloride 88 mmol/L (98-107) L 05/01/23 03:18
Carbon Dioxide 34 mmol/L (22-30) H 05/01/23 03:18
BUN 102 mg/dl (9-20) H* 05/01/23 03:18
Creatinine 2.4 mg/dL (0.7-1.3) H 05/01/23 03:18
eGFR 28.14 05/01/23 03:18
Glucose 107 mg/dl (70-99) H 05/01/23 03:18
Calcium 8.5 mg/dl (8.4-10.2) 05/01/23 03:18
Eum-P-Umfzrzadcmt Pept 36270 pg/ml 04/30/23 20:21
Albumin 3.1 g/dl (3.5-5.0) L 05/01/23 03:18
Physical Exam
General: AOx3
HEENT: PERRL, EOMI, Oropharynx Clear/Moist, Neck Supple, Trachea Midline and No Thyromegaly
Respiratory: Clear and Normal Excursion
Cardiac: Regular Rate/Rhythm
Abdomen: Soft, Nontender, Nondistended, Normal Bowel Sounds and No Hepatosplenomegaly
Skin: No Rash and Normal Turgor
Psych: Mood/afflect pleasant and Insight/judgement good
Assessment/Plan
-
Assessment:
ELLIE
Pancytopenia
Hepatitis C (on epclusa)
Hypokalemia
Hypomagnesemia
Hyponatremia
Metabolic alkalosis
Azotemia
Plan
-replete K
-replete Mg
-reduce bumex
-follow BMP
-no HD needs at this time
-abx pre primary team
Data Reviewed
-
Radiology: Image Personally Visualized and interpreted (Chest x-ray on April 30, 2022 by my reading shows right lower lobe infiltrate)
Medical Tests (Nuc Med, Echo etc): Image Personally Visualized and interpreted (EKG on May 01, 2023 by my reading shows sinus rhythm first-degree AV block, PVCs, septal Q waves)
Labs: Labs Reviewed by me
Old Records: Reviewed
[2023-05-01] MEDS: LEVAQUIN 750 MG PO (12:42)
[2023-05-01] MEDS: MAXIPIME 1000 MG IV (12:42)
[2023-05-01] MEDS: MAGNESIUM SULFATE 50 IV (12:43)
[2023-05-01] MEDS: VANCOCIN 540 MG IV (12:43)
--- NOTE | 2023-05-01 12:43 | W.PN.HOSP.TC ---
Today's Communication/Plan
-
recheck HGB now
consider transfusion based on Hgb
Cardio consult
continue abx as per ID
Assessment / Plan
Assessment / Plan
Fever / Weakness
Strep bovis Bacteremia
Aortic Valve Endocarditis
�- Admit for further evaluation and treatment.
�- Last positive BCx were 04/10.� Negative 04/11, 04/12 and at [place].
�- Continue IV ceftriaxone for now.
�- Repeat blood cultures.
�- ID evaluation appreciated
�- Patient had MAX done at [place] showing large echo-mobile density on the aortic valve c/w endocarditis.
�- Valvuloplasty was discussed, but patient declined at that time, pt now tells me he would be interested in having done
�- Consider local CT surgery evaluation.
�- No new focal complaints to suggest other / new infectious etiology.
Anemia
Hgb 8.4-->8.1-->7.5
obtained Blood Consent, placed in chart.
ordered repeat Hgb and T&S. consider transfusion based on repeat study
Tachycardia
noted earlier, just checked, HR back down to 76. Tachycardic rhythm most consistent with PSVT vs A. fib with rvr. EKG done dx A. Fib
will consult with cardio
ELLIE
Uremia
Hypokalemia
�- Recently dialysis dependent ELLIE.
�- Last HD session was > 1 week ago.
�- Renal function has remained stable since that time.
�- Decrease current diuretic regimen for now given significant azotemia / hypokalemia.
�- Follow for continued renal recovery.
�- Nephrology evaluation for diuretic management appreciated
BUN/Creat 102/24
Chronic Hep C
�- Recently started on Epclusa.
�- Continue current regimen - patient brought medication with him.
Lumbar DDD
�- Current symptoms / episode started with low back pain / weakness that began in February 2023.
�- Patient underwent LESI x 2 and had significant decline following second injection.
�- Some continued / intermittent pain.
�- MRI recommended at [facility] to rule out discitis / osteomyelitis but patient declined for fear of MRI.
�- Would agree with MRI - especially prior to any valvuloplasty, etc.
�- Consider MRI here - with sedation if necessary.
Palpable Purpura
�- ? secondary to Hep C versus bacteremia v other.
�- Significantly improved from prior.
�- On high-dose steroids briefly for ELLIE - since discontinued.
�- Follow for any new / recurrent symptoms.
DVT Prophylaxis:� Subcut Heparin
Code Status:� Full
complex situation
Anticipated Discharge: > 48 hours
Subjective/Interval History
-
Date of Service: May 01, 2023
Awake, alert, answering questions
Objective Data
-
Labs:
Laboratory Results
05/01/23 05/01/23
03:18 12:40
WBC 3.1 L Pending
Hgb 7.5 L Pending
Hct 21.3 L Pending
Plt Count 120 L Pending
Sodium 132 L
Potassium 3.4 L
Chloride 88 L
Carbon Dioxide 34 H
BUN 102 H*
Creatinine 2.4 H
Glucose 107 H
Calcium 8.5
Total Bilirubin 0.8
AST 43
ALT 24
Alkaline Phosphatase 54
Vital Signs:
Vital Signs
Temp Pulse Resp BP Pulse Ox
98.6 F 132 22 103/60 93
05/01/23 12:38 05/01/23 10:00 05/01/23 10:00 05/01/23 10:00 05/01/23 09:05
I&O
04/30/23 05/01/23 05/02/23
06:59 06:59 06:59
Intake Total 500 / 500
Output Total 1000 / 1000
Balance -500 / -500
Review of Systems
-
History Source: Patient, Physician (reviewed with Dr. Hawk) and Coordinated Provider
Constitutional: Reports Fever (Tmax 101.7), Fatigue and Weakness
Respiratory: Denies Trouble Breathing
Cardiac: Denies Chest Pain or Palpitations
Abdomen/GI: Reports No Symptoms
Genitourinary: Reports No Symptoms
Physical Exam
-
General: Well Developed, Well Nourished and No Apparent Distress
HEENT: Normocephalic, Atraumatic and Moist Mucous Membranes
Respiratory: Clear to Auscultation; Negative Wheezes, Rales or Rhonchi
Cardiac: Regular Rhythm, S1/S2 and Tachycardic (was tachycardic earlier today, resolved)
GI: Soft, Nontender and Nondistended
Musculoskeletal: No Clubbing, No Cyanosis, Edema, Right Lower Extrem (2+) and Edema, Left Lower Extrem (2+)
Neuro: Awake, Alert and Oriented
--- NOTE | 2023-05-01 13:38 | WOUNDNOTE ---
CELSA RN NOTE: Confirmed with nurse Camarena that sacral PI not new and can cancel consult.
[2023-05-01 14:37] LABS: % Basophils 0.7 % (0-2); % Eosinophils 1.4 % (0-6); % Immature Granulocytes 0.5 % (0-0.5); % Lymphocytes 14.3 % (20.5-51.1); % Monocytes 9.7 % (1.7-9.3); % Neutrophils 73.4 % (42.2-75.2); Absolute Eosinophils 0.1 10^3/uL (0-0.7); Absolute Lymphocytes 0.6 10^3/uL (1.2-3.4); Absolute Monocytes 0.4 10^3/uL (0.1-0.6); Absolute Neutrophils 3.2 10^3/uL (1.4-6.5); Hematocrit 25.1 % (39.0-52.0); Hemoglobin 8.6 g/dL (13.0-18.0); Mean Corp Hgb Conc. 34.3 g/dL (33.0-37.0); Mean Corpuscular Hgb 30.8 pg (27.0-31.0); Mean Platelet Volume 11.6 fL (7.4-10.4); Nucleated Red Blood Cells % 0 % (-); Platelet Count 144 10^3/uL (130-400); Red Blood Cell Count 2.79 10^6/uL (4.70-6.10); Red Cell Dist. Width 20.3 % (11.5-14.5); White Blood Cell Count 4.3 10^3/uL (4.8-10.8)
--- NOTE | 2023-05-01 15:27 | CON.CAR ---
Addendum entered and electronically signed by Rl Acevedo MD 05/01/23 16:51:
72-year-old male with recent hospitalization at [facility] with transfer to [place] and then discharged from [place] on 04/27/2023 is now readmitted to [facility] on 04/30/2023 with weakness and fatigue. Patient with complex medical issues with
hospitalization at [facility] 04/04/2023 with strep bovis bacteremia, aortic valve endocarditis, acute renal failure requiring hemodialysis, cryoglobulinemia, hep C and possible cirrhosis. Transferred to [place] seen by hepatology, patient also
had plasmapheresis and assessment by CT surgery. Apparently patient declined surgery and plan was for medical therapy during his hospitalization he also also noted to have PAF and anticoagulation was not initiated due to concerns regarding
anticoagulation in the setting of endocarditis. Now readmitted with fatigue he has had 1 fever since admission of 101 blood cultures are pending. He is also had some asymptomatic A-fib with RVR with heart rate as high as 140 at [place] he had
episodes lasting as long as an hour.
#PAF.-Episodes of asymptomatic A-fib with RVR. Limited management options due to relatively low blood pressure, CKD and liver disease
- Continue metoprolol at current dose
-No anticoagulation to be added at this time with ongoing endocarditis
-Since rate control and antiarrhythmic therapy options are limited we will allow him to have brief episodes of asymptomatic A-fib.
# Endocarditis. Challenging management issues as outlined above. Patient with multiple comorbidities. Evaluated for surgery at [place] and patient declined. Continue with conservative management at this time. Fever of 101 concerning. Monitor
follow-up blood cultures. If patient has continued bacteremia despite antibiotic therapy then management options will need to be reassessed
# CKD. Management as directed by nephrology last hemodialysis 1 week ago
# Cryoglobulinemia
# Hep C
# Anemia
Original Note:
Consultation
Consultation Request
Date/Time Consultation Requested: 05/01/23 12:40
Date/Time Consultation Performed: 05/01/23 14:00
Requesting Provider: Dr. Gallegos
Performing Provider: MICA Presley for Dr. Acevedo
Reason for Consultation: PSVT versus atrial fibrillation
Medical History
-
Chief Complaint: Fatigue
History of Present Illness:
Basilio Mayer is a 72-year-old male who initially presented to [facility] 04/04/2023 with fatigue, poor oral intake, and lightheadedness. He was then found to have acute renal failure and was started on hemodialysis. Blood cultures
revealed strep bovis. Aortic valve endocarditis confirmed on imaging. His hospitalization was then complicated by cirrhosis and cryoglobulenemia. He was transferred to [facility] on 04/12/2023 for initiation of hepatitis C
treatment and surgical evaluation for his endocarditis. He was discharged from that facility 04/27/2023. His renal function stabilized off of dialysis. He is on antiviral for his hepatitis C. He received plasmapheresis for total of 2 sessions
04/13/2023. It was unclear whether or not he had true cirrhosis possibly congestive hepatopathy causing liver dysfunction. He was followed by palliative care, cardiology, infectious disease, hematology, nephrology, and cardiac surgery. He was
discharged on 04/27/2023 and presented here 04/30/2023 with weakness and fatigue. He denies missed doses of his ceftriaxone. When he presented he was found to be febrile. Cardiology was consulted for PSVT versus PAF on telemetry. He had paroxysmal
atrial fibrillation during his hospitalization at [facility]. He was intermittently in and out of atrial fibrillation. His longest stretch was under 1 hour. He was not given anticoagulation given the risk of mycotic aneurysm with
his endocarditis.
Past Medical History
Past Medical History: Arrhythmias (paroxysmal atrial fibrillation), Renal Failure (ELLIE on CKD requiring HD) and Valvular Disease (Aortic valve endocarditis [strep bovis])
Social History
Tobacco: Non-Smoker
Alcohol: None
Drug: IVDA (Former [> 50 years ago])
Allergies / Home Medications
Allergy/AdvReac Type Severity Reaction Status Date / Time
No Known Allergies Allergy Verified 04/30/23 19:46
Medication Instructions Recorded Confirmed Type
cyclobenzaprine 5 mg tablet 5 mg PO BID PRN muscle spasms/back 04/04/23 04/30/23 History
pain
bumetanide 2 mg tablet 4 mg PO TID 04/30/23 04/30/23 History
ceftriaxone 2 gram intravenous 2 g IV DAILY 04/30/23 04/30/23 History
solution
gabapentin 300 mg capsule 300 mg PO BID 04/30/23 04/30/23 History
metolazone 5 mg tablet 5 mg PO DAILY 04/30/23 04/30/23 History
metoprolol tartrate 25 mg tablet 12.5 mg PO BID 04/30/23 04/30/23 History
oxycodone 5 mg tablet 5 mg PO Q8H PRN severe pain 04/30/23 04/30/23 History
potassium chloride 20 mEq 40 meq PO DAILY 04/30/23 04/30/23 History
tablet,extended release
sofosbuvir 400 mg-velpatasvir 100 1 tab PO DAILY 04/30/23 04/30/23 History
mg tablet (Epclusa)
Review of Systems
-
History Source: Patient
All other systems: Negative unless noted
Constitutional: Fever and Fatigue
Physical Exam
Vital Signs
Temp Pulse Resp BP Pulse Ox
98.6 F 77 21 96/42 98
05/01/23 12:38 05/01/23 14:00 05/01/23 14:00 05/01/23 14:00 05/01/23 12:00
Lab Results
05/01/23 13:07
05/01/23 03:18
Eps-W-Jcduvilekbh Pept 00402 pg/ml 04/30/23 20:21
Physical Exam
General: Well Developed and No Apparent Distress
HEENT: Normocephalic, Anicteric and Moist Mucous Membranes
Respiratory: Clear and Non Labored Respirations
Cardiac: S1/S2, Regular Rhythm, Murmur and Peripheral Edema (B/L LE)
Breast: Deferred by me
GI: Soft, Non Tender, Non Distended and Normal Bowel Sounds
Rectal: Deferred by Provider
Genito-urinary: No Costovertebral Tender
Musculoskeletal: No Clubbing and No Cyanosis
Skin: Warm
Neuro: AO x 3
Hematologic/Lymphatic: No Lymphadenopathy
Psych: Calm
Impression / Plan
-
Aortic valve endocarditis in the setting of strep bovis bacteremia
-Fever last evening, blood cultures pending, last positive culture 04/10/26
-EGD and colonoscopy with colonic polyps no tumor
-ID following
-He declined valvuloplasty at [facility], but is now reconsidering and would like eval by [facility] when he completes treatment
Paroxysmal atrial fibrillation
-He is in and out of atrial fibrillation
-Continue metoprolol tartrate 12.5mg BID, BP will not support further increase
-Oral Anticoagulation: None, endocarditis as above
-[id number]: 1 (age 65-74)
CKD, briefly on hemodialysis, last hemodialysis was greater than 1 week ago, nephrology following
Hepatitis C, chronic, recently started on Epclusa
Anemia, chronic
Prior IVDA
Data Reviewed
-
EKG: Report Reviewed by me (Atrial fibrillation with right ventricular response, rate 126; sinus rhythm with first-degree AV block, rate 81)
Radiology: Report Reviewed by me (CXR: Right basilar pneumonia, slightly improved.)
Medical Tests (Nuc Med, Echo etc): Report Reviewed by me (Prior echo as above)
Labs: Labs Reviewed by me
Old Records: Reviewed (Discharge paperwork from [facility])
[2023-05-01] MEDS: KCL 20 MEQ PO (15:59)
--- NOTE | 2023-05-01 16:43 | CM ---
Patient with Dx Fever / Weakness, Strep bovis Bacteremia, Aortic Valve Endocarditis. Room air. PICC line. Receiving IV cefepime, IV vanco. PT & OT recommend skilled rehab.
Met with patient and spoke with daughter Brenda by phone;
the patient resides with his daughter, son in law and 2 grand-children in a 2 story house.
The patient resides in an attached one story unit with 2 GERMAN.
He has been independent in ADLs and ambulation.
The patient was recently discharged from [facility] and was home for a few days with some weakness before being admitted to .
DME - [facility], [facility]
No prior VN or SNF
Current with [facility] for ceftriaxone (until 05/28 or 05/29 per daughter), daughter administering.
PCP - Garfield Kelly
Pharmacy - [facility]
Daughter works from home and is available to assist as needed.
Discussed patient's current mobility with daughter- she would like VN if patient goes home. She would like to wait to discuss possible SNF for rehab.
Plan follow patient's progress with PT/OT.
Plan follow for home infusion needs.
[2023-05-02] VITALS (13 sets, daily range): BP systolic 93–111; BP diastolic 37–55; BMI 25.0
[2023-05-02] MEDS: STERILE WATER FOR INJECTION 10 ML IV ×2 (00:05→12:25)
[2023-05-02] MEDS: ROXICODONE 5 MG PO ×3 (00:05→17:17)
[2023-05-02] MEDS: MAXIPIME 1000 MG IV ×2 (00:05→12:25)
--- NOTE | 2023-05-02 00:39 | PTCARENOTE ---
Pt carter leaking x2, [employer] notified. Carter discontinued, c/c placed on pt. Pt bladder scanned for 104 ml.
--- NOTE | 2023-05-02 04:06 | PTCARENOTE ---
Addendum entered by Radha Smith RN 05/02/23 04:46:
Pt converted to NSR w/ 1st degree AV block. EKG provided.
Original Note:
Pt went into Afib with RVR, EKG provided. HR 120s-140s, pt asymptomatic. MICA [facility] notified.
[2023-05-02 04:15] LABS: Hematocrit 22.7 % (39.0-52.0); Hemoglobin 7.7 g/dL (13.0-18.0); Mean Corp Hgb Conc. 33.9 g/dL (33.0-37.0); Mean Corpuscular Hgb 30.8 pg (27.0-31.0); Mean Corpuscular Volume 90.8 fL (80.0-94.0); Mean Platelet Volume 11.6 fL (7.4-10.4); Platelet Count 112 10^3/uL (130-400); Red Cell Dist. Width 19.7 % (11.5-14.5); White Blood Cell Count 3.5 10^3/uL (4.8-10.8)
[2023-05-02 04:30] LABS: Blood Urea Nitrogen 93 mg/dl (9-20); Calcium 8.3 mg/dl (8.4-10.2); Carbon Dioxide 33 mmol/L (22-30); Chloride 92 mmol/L (98-107); Estimated Creatinine Clearance 30 ml/min; Glucose 143 mg/dl (70-99); Potassium 3.3 mmol/L (3.5-5.1); Sodium 131 mmol/L (135-145); eGFR 28.14
[2023-05-02 04:40] LABS: Vancomycin Random 17.1 ug/ml
[2023-05-02] MEDS: KCL 40 MEQ PO ×2 (05:05→07:56)
[2023-05-02] MEDS: LOPRESSOR 12.5 MG PO ×2 (07:55→20:57)
[2023-05-02] MEDS: NEURONTIN 300 MG PO ×2 (07:55→20:57)
[2023-05-02] MEDS: BUMEX 4 MG PO ×2 (07:55→20:57)
[2023-05-02] MEDS: NON-FORMULARY ITEM 1 TABLET PO (07:55)
[2023-05-02] MEDS: HEPARIN 5000 UNITS SC ×2 (07:56→20:57)
--- NOTE | 2023-05-02 08:12 | PHA.VAN.FU ---
Addendum entered and electronically signed by Desi Jansen [facility] 05/02/23 16:08:
BUN & SCR ordered per protocol
Original Note:
Vancomycin Assessment / Plan
- Assessment
Renal Function: Stable
In the past 24 hrs, patient has been: Afebrile
Concomitant Antimicrobials: cefepime, levofloxacin
- Assessment - Therapeutic Drug Monitoring
Random Level: 17.1 - drawn ~15H after 2000mg loading dose
- Dosing Plan
Dosing by Level: Re-dose today (Vanc 750mg)
Dosing Comments: trial of lower dose today but may require prolonged interval
- Monitoring Plan
Random Level: 599
- Follow Up
Pharmacy will continue to follow.
Vancomycin Follow UP
- -
Patient Age: 72
Patient Sex: Male
Vancomycin Day #: 2
Indication: Bacteremia
Requesting Provider: Dr. Hawk
Pertinent Antimicrobial Allergies:
NKDA
Height / Weight:
Height 5 ft 11 in
Actual Weight 81.4 kg
Pertinent Past Medical History: HCV (sofosbuvir/velpatasvir), S. bovis bacteremia
- Vital Signs / Lab Results
Temp Pulse Resp BP Pulse Ox
98.3 F 82 13 99/43 96
05/02/23 03:00 05/02/23 07:55 05/02/23 06:00 05/02/23 07:55 05/02/23 04:14
Lab Results - Hematology
04/30/23 05/01/23 05/01/23
20:14 03:18 13:07
WBC 2.9 L 3.1 L 4.3 L
05/02/23
03:52
WBC 3.5 L
Lab Results - Chemistry
04/30/23 05/01/23 05/02/23
20:14 03:18 03:52
BUN 104 H* 102 H* 93 H
Creatinine 2.5 H 2.4 H 2.4 H
Estimated Creat Clear 28 30 30
Albumin 3.5 3.1 L
04/30/23 04/30/23
20:14 23:45
Lactic Acid 1.5 Cancelled
Microbiology Results
04/30/23 21:15 Blood Culture - Preliminary
Blood/Venous No Growth in 24 hours- Final report to follow
04/30/23 20:14 Blood Culture - Preliminary
Blood/Venous No Growth in 24 hours- Final report to follow
04/30/23 21:15 Influenza Types A & B (TERRELL) - Final
Nasal Swab Negative for Influenza A & B, NAAT
Negative results must be combined with clinical observations
and patient history.
Nucleic Acid Amplification test (NAAT)performed on the
[employer] platform.
Therapeutic Drug Monitoring
Random Vancomycin 17.1 ug/ml 05/02/23 03:52
[2023-05-02] MEDS: VANCOCIN 150 IV (09:55)
--- NOTE | 2023-05-02 10:07 | W.PN.ID1 ---
Date of Service
Date of Service: May 02, 2023
Today's Communication
- continue vanc/cefepime/levofloxacin
- if blood cultures remain negative another day then Ill stop vancomycin
Assessment / Plan
Relapsed Fever - resolved
Sepsis - resolved
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
Cirrhosis - unclear if compensated
Pancytopenia
CKD
- blood cultures x2 in progress no growth to date
- picc line without induration, tenderness or drainage
- US abd no ascites
- continue streptococcal coverage through at least 05/07 for endocarditis
- continue vanc/cefepime/levofloxacin
- if blood cultures remain negative another day then Ill stop vancomycin
- to complete course of epclusa
- follow clinically - cautiously optimistic that he may be improving
Chief Complaint
-: Fever and Other (sepsis)
Subjective / Review of Systems
no further fevers
mild hypotension ongoing
persistent leukopenia
thrombocytopenia noted
cr remains 2.4
2 view CXR today: my read RLL infiltrate with air borcnchograms; radiology read cannot exclude medial right lung base pneumonia
04/30 blood cultures no growth to date
no cough, no cough/choaking with eating
Vital Signs / Physical Exam
Vital Signs
Vital Signs
Temp Pulse Resp BP Pulse Ox
98.3 F 82 13 99/43 96
05/02/23 03:00 05/02/23 07:55 05/02/23 06:00 05/02/23 07:55 05/02/23 04:14
Physical Exam
Constitutional: No Acute Distress and Chronically Ill
Cardiovascular: Regular Rate and S1/S2; Negative Murmur or Rub
Pulmonary: Clear and Symmetric; Negative Wheezes or Rales
Gastrointestinal: Soft, Non Tender, Non Distended and Normal Bowel Sounds
Skin: Warm, Dry and Rash; Negative Jaundice
Objective Data
Lab Data
Lab Results
05/02/23 03:52
05/02/23 03:52
PT 14.5 Sec (11.4-14.6) 04/30/23 20:14
INR 1.15 04/30/23 20:14
Estimated Creat Clear 30 ml/min 05/02/23 03:52
Lactic Acid Cancelled 04/30/23 23:45
Total Bilirubin 0.8 mg/dl (0.2-1.3) 05/01/23 03:18
AST 43 U/L (17-59) 05/01/23 03:18
ALT 24 U/L (0-50) 05/01/23 03:18
Alkaline Phosphatase 54 U/L (38-126) 05/01/23 03:18
Most recent labs reviewed.
Micro Results:
05/01/23 03:04 MRSA Screen - Final
Nose No Methicillin Resistant Staphylococcus aureus isolated.
04/30/23 21:15 Blood Culture - Preliminary
Blood/Venous No Growth in 24 hours- Final report to follow
04/30/23 20:14 Blood Culture - Preliminary
Blood/Venous No Growth in 24 hours- Final report to follow
04/30/23 21:15 Influenza Types A & B (TERRELL) - Final
Nasal Swab Negative for Influenza A & B, NAAT
Negative results must be combined with clinical observations
and patient history.
Nucleic Acid Amplification test (NAAT)performed on the
[employer] platform.
--- NOTE | 2023-05-02 10:20 | W.PN.CD ---
Today's Communication / Plan
-
Echo pending
Prognosis poor
Very high risk situation
Impression / Plan
-
Recent aortic valve endocarditis in the setting of strep bovis bacteremia (last month)
Paroxysmal atrial fibrillation
-He is in and out of atrial fibrillation
-Continue metoprolol tartrate 12.5mg BID, BP will not support further increase
-Oral Anticoagulation: None, at this time, see prior notes
-[id number]: at least 1 (age 65-74) and likely 2 (likely heart failure)
Suspected heart failure
- Edema
- Dyspnea
- CXR findings
- Echo pending
- At [place] there was talk of valve surgery
- His general medical condition and comorbid conditions will make AVR/MVR very high risk and perhaps prohibitive risk
- Agree with diuresis
Moderate to severe aortic regurgitation (echo 04/10/2023)
Moderate to severe mitral regurgitation (echo 04/10/2023)
Cryoglobulinemia
Severe CKD, briefly on hemodialysis, last hemodialysis was greater than 1 week ago, nephrology following
Hepatitis C, chronic, recently started on Epclusa
Anemia, chronic
Prior IVDA
Anemia
Physical Exam
Vital Signs/Labs
Vital Signs
Temp Pulse Resp BP Pulse Ox
98.3 F 82 13 99/43 96
05/02/23 03:00 05/02/23 07:55 05/02/23 06:00 05/02/23 07:55 05/02/23 04:14
05/01/23 05/02/23 05/03/23
06:59 06:59 06:59
Actual Weight 83.1 kg 81.4 kg
05/02/23 03:52
05/02/23 03:52
PT 14.5 Sec (11.4-14.6) 04/30/23 20:14
INR 1.15 04/30/23 20:14
Magnesium 2.0 mg/dl (1.6-2.3) 05/02/23 03:52
04/30/23
20:21
Bek-H-Qejiaykpqzq Pept
Physical Exam
Constitutional: No acute distress
EENT: Anicteric
Cardiovascular: Rhythm & rate is regular, Pedal edema present, Systolic murmur present and Diastolic murmur present
Respiratory: Respiratory effort normal and Crackles Present
GI: Soft and Distention absent
Neuro/Psych: AO x 3
Data Reviewed
-
Date of Service: May 02, 2023
--- NOTE | 2023-05-02 13:55 | W.PN.NEPH.PH ---
Today's Communication / Plan
-
follow labs
Assessment/Plan
-
Assessment:
ELLIE
Pancytopenia
Hepatitis C (on epclusa)
Hypokalemia
Hypomagnesemia
Hyponatremia
Metabolic alkalosis
Azotemia
Plan
cr seem to stable from recent d/c
noted labs last week from [facility] was 2.4, BUN in 70s
-replete K
cont bumex BID, non oliguric, CXR noted ?CHF, pending echo
-no HD needs at this time
mild hyponatremia -would start FR 48 ounces/day
-abx pre primary team
BP are soft on low dose BB
-
-
Date of Service: May 02, 2023
CC / HPI / ROS
-
Chief Complaint:
ELLIE
History of Present Illness:
cr stable at 2.4. BP stable
wt decreasing
sodium low at stable 131, k 3.3
Review of Systems:
no cp or sob at rest
feels well today
Labs
-
Labs:
WBC 3.5 10^3/uL (4.8-10.8) L 05/02/23 03:52
RBC 2.50 10^6/uL (4.70-6.10) L 05/02/23 03:52
Hgb 7.7 g/dL (13.0-18.0) L 05/02/23 03:52
Hct 22.7 % (39.0-52.0) L 05/02/23 03:52
Plt Count 112 10^3/uL (130-400) L D 05/02/23 03:52
Sodium 131 mmol/L (135-145) L 05/02/23 03:52
Potassium 3.3 mmol/L (3.5-5.1) L 05/02/23 03:52
Chloride 92 mmol/L (98-107) L 05/02/23 03:52
Carbon Dioxide 33 mmol/L (22-30) H 05/02/23 03:52
BUN 93 mg/dl (9-20) H 05/02/23 03:52
Creatinine 2.4 mg/dL (0.7-1.3) H 05/02/23 03:52
eGFR 28.14 05/02/23 03:52
Glucose 143 mg/dl (70-99) H 05/02/23 03:52
Calcium 8.3 mg/dl (8.4-10.2) L 05/02/23 03:52
Jrw-X-Uxwgqsocfly Pept 96187 pg/ml 04/30/23 20:21
Albumin 3.1 g/dl (3.5-5.0) L 05/01/23 03:18
Physical Exam
-
Vital Signs:
Vital Signs
Temp Pulse Resp BP Pulse Ox
98.5 F 82 13 99/43 96
05/02/23 07:30 05/02/23 07:55 05/02/23 06:00 05/02/23 07:55 05/02/23 04:14
Cardiovascular:: Regular rate and rhythm
Lung Excursion:: Normal (decreased)
Abdomen:: Nontender and Soft
Extremity Edema:: +2: Bilateral:
Schofield Catheter: No
--- NOTE | 2023-05-02 16:00 | PTCARENOTE ---
Rec'd pt this AM. Intermittently confused. BP soft but stable. tolerating diet. resting comfortably.
--- NOTE | 2023-05-02 16:32 | W.PN.HOSP.TC ---
Today's Communication/Plan
-
see outlined plan
Assessment / Plan
Assessment / Plan
Assessment:
Fever/Weakness
Strep bovis Bacteremia
Aortic Valve Endocarditis
- Last positive BCx were 04/10.�Negative 04/11, 04/12 and at [facility].
- follow blood cultures here
- continue IV Vanc/Cefepime/Levaquin per ID. Vanc requires intensive monitoring of levels
- Patient had MAX done at [place] showing large echo-mobile density on the aortic valve c/w endocarditis.
- Valvuloplasty was discussed, but patient declined at that time, pt now tells me he would be interested in having done
- Cardiology following
Acute HFpEF
Moderate to severe aortic regurgitation (echo 04/10/2023)
Moderate to severe mitral regurgitation� (echo 04/10/2023)
- Echo: Moderately dilated LV with normal systolic function and no regional wall motion abnormalities. LV ejection fraction is 55-60% by volumetric assessment. No LVH. Dilated RV with normal systolic function. Biatrial dilation. Thickened aortic
valve with mobile echodensity on at least the RCC, measuring 1.4 cm x 1.1 cm.� Severe aortic regurgitation, PHT of 151 ms. Thickened mitral valve leaflets with possible small vegetation on posterior leaflet. Mild to moderate eccentric mitral
regurgitation. Compared to prior on April 10, 2023, LV is more dilated, AR is now worse and severe from moderate to severe, MR appears mild to moderate from moderate to severe.
- IV Lasix - requires intensive monitoring
Acute on chronic anemia
- follow Hb, monitor for transfusion needs
Parox A. Fib
- continue Metoprolol
- no OAC per Cards currently
ELLIE
Uremia
Hypokalemia
Hyponatremia
- Recently dialysis dependent ELLIE.
- Last HD session was > 1 week ago.
- Renal function has remained stable since that time.
- continue diuretics per Nephrology
- fluid restriction
Chronic Hep C
�- Recently started on Epclusa.
�- Continue current regimen - patient brought medication with him.
Lumbar DDD
- Current symptoms / episode started with low back pain / weakness that began in February 2023.
- Patient underwent LESI x 2 and had significant decline following second injection.
- Some continued / intermittent pain.
- MRI recommended at [facility] to rule out discitis / osteomyelitis but patient declined for fear of MRI.
- Would agree with MRI - especially prior to any valvuloplasty, etc.
- Consider MRI here - with sedation if necessary.
Palpable Purpura
Cryoglobulinemia
- ? secondary to Hep C versus bacteremia v other.
- Significantly improved from prior.
- On high-dose steroids briefly for ELLIE - since discontinued.
- Follow for any new / recurrent symptoms.
DVT Prophylaxis: SC Heparin
Code: Full
Anticipated Discharge: > 48 hours
Subjective/Interval History
-
Date of Service: May 02, 2023
feels well, no cp or sob
Objective Data
-
Vital Signs:
Vital Signs
Temp Pulse Resp BP Pulse Ox
98.3 F 78 30 102/47 96
05/02/23 11:35 05/02/23 12:00 05/02/23 12:00 05/02/23 14:00 05/02/23 12:00
I&O
05/01/23 05/02/23 05/03/23
06:59 06:59 06:59
Intake Total 500 / 500 2550 / 2550 360 / 360
Output Total 1000 / 1000 2550 / 2550 300 / 300
Balance -500 / -500 0 / 0 60 / 60
Physical Exam
-
General: No Apparent Distress
HEENT: Normocephalic and Atraumatic
Respiratory: Decreased Breath Sounds
Cardiac: Regular Rhythm and S1/S2
GI: Soft
Musculoskeletal: Edema, Right Lower Extrem and Edema, Left Lower Extrem
Neuro: AO x 3
Psych: Calm
Data Reviewed
-
Total Time Spent with Patient (in minutes): 45
Labs: Labs Reviewed by me
--- NOTE | 2023-05-02 18:52 | PTCARENOTE ---
Per , Cards, EKG not required if pt goes into A fib again as it has been captured.
--- NOTE | 2023-05-02 20:37 | PTCARENOTE ---
Received pt from gill RN. Pt is AAOx2 (time), flat, forgetful @ times. NSR w/ PVCs and 1st degree block. On 2L NC O2 sat 98%, lungs diminished. C/c in place. Mouth care and hygiene provided.
[2023-05-03] VITALS (15 sets, daily range): BP systolic 85–109; BP diastolic 28–73; BMI 24.9
[2023-05-03] MEDS: MAXIPIME 1000 MG IV ×3 (00:18→23:48)
[2023-05-03] MEDS: STERILE WATER FOR INJECTION 10 ML IV ×3 (00:19→23:49)
[2023-05-03] MEDS: ROXICODONE 5 MG PO ×3 (01:20→19:09)
[2023-05-03 04:18] LABS: % Basophils 0.6 % (0-2); % Eosinophils 3.6 % (0-6); % Immature Granulocytes 0.6 % (0-0.5); % Lymphocytes 22.4 % (20.5-51.1); % Monocytes 12.5 % (1.7-9.3); % Neutrophils 60.3 % (42.2-75.2); Absolute Eosinophils 0.1 10^3/uL (0-0.7); Absolute Lymphocytes 0.8 10^3/uL (1.2-3.4); Absolute Monocytes 0.5 10^3/uL (0.1-0.6); Absolute Neutrophils 2.2 10^3/uL (1.4-6.5); Hematocrit 23.5 % (39.0-52.0); Hemoglobin 8.1 g/dL (13.0-18.0); Mean Corp Hgb Conc. 34.5 g/dL (33.0-37.0); Mean Corpuscular Hgb 30.9 pg (27.0-31.0); Mean Corpuscular Volume 89.7 fL (80.0-94.0); Mean Platelet Volume 11.3 fL (7.4-10.4); Nucleated Red Blood Cells % 0 % (-); Platelet Count 118 10^3/uL (130-400); Red Blood Cell Count 2.62 10^6/uL (4.70-6.10); Red Cell Dist. Width 19.5 % (11.5-14.5); White Blood Cell Count 3.6 10^3/uL (4.8-10.8)
[2023-05-03 04:27] LABS: Vancomycin Random 17.7 ug/ml
[2023-05-03 04:40] LABS: Blood Urea Nitrogen 97 mg/dl (9-20); Calcium 8.7 mg/dl (8.4-10.2); Carbon Dioxide 33 mmol/L (22-30); Chloride 87 mmol/L (98-107); Estimated Creatinine Clearance 31 ml/min; Glucose 125 mg/dl (70-99); Iron 48 ug/dl (49-181); Potassium 3.3 mmol/L (3.5-5.1); Sodium 129 mmol/L (135-145); eGFR 29.62
[2023-05-03 04:49] LABS: Percent Saturation 17 % (20-50); Total Iron Binding Capacity 269 ug/dl (261-462)
[2023-05-03] MEDS: KCL 40 MEQ PO ×2 (04:57→09:01)
[2023-05-03 05:45] LABS: Folate 9.7 ng/ml (2.76-20); Vitamin B12 463 pg/ml (239-931)
--- NOTE | 2023-05-03 08:07 | W.PN.CD ---
Today's Communication / Plan
-
AI is worse on follow up echocardiogram
He did not decline surgery but deferred it
I will consult CTS here and get their opinion.
Call his daughter for any information needed
Impression / Plan
-
Impression: 72M with recent aortic valve endocarditis in the setting of strep bovis bacteremia (last month) causing severe symptomatic AI - [facility] and declined [facility] Surgery (very high risk)
Severe AI - worse on follow up echocardiogram
- medical management unlikely to be successful in the medium to jail
- continue diuretic
- d/w patient but he deferred to his daughter. I discussed it with her (Brenda Mayer) and it was very helpful.
- He did not decline surgery but they had many appropriate questions. It seems the urgency of the situation may have short circuited effective communication. Ultimately, they planned to see how he did with recovery & medical therapy so that he
might be at less risk with surgery.
- MAX and other preoperative planning was done at [place] (will request records)
- I will consult CTS here and get their opinion. He is clearly high risk but is it prohibitive, etc.
Paroxysmal atrial fibrillation
-He is in and out of atrial fibrillation
-Continue metoprolol tartrate 12.5mg BID, BP will not support further increase
-Oral Anticoagulation: None, at this time, see prior notes
-[id number]: at least 1 (age 65-74) and likely 2 (likely heart failure)
Heart failure
- Edema
- Dyspnea
- CXR findings
- Echo with severe AI and LV dilation
Moderate to severe aortic regurgitation (echo 04/10/2023)
Moderate to severe mitral regurgitation (echo 04/10/2023)
Cryoglobulinemia
Severe CKD, briefly on hemodialysis, last hemodialysis was greater than 1 week ago, nephrology following
Hepatitis C, chronic, recently started on Epclusa
Anemia, chronic
Prior IVDA
Anemia
He is critically ill 45 minutes used with CTS, daughter, patient
Subjective: No CP, dyspnea, or palpitations.
Physical Exam
Vital Signs/Labs
Vital Signs
Temp Pulse Resp BP Pulse Ox
36.4 C 78 23 101/37 95
05/02/23 22:55 05/03/23 06:00 05/03/23 06:00 05/03/23 06:00 05/03/23 06:00
05/02/23 05/03/23 05/04/23
06:59 06:59 06:59
Actual Weight 179 lb 7.3 oz 178 lb 2.136 oz
05/03/23 03:50
05/03/23 03:50
PT 14.5 Sec (11.4-14.6) 04/30/23 20:14
INR 1.15 04/30/23 20:14
Magnesium 2.0 mg/dl (1.6-2.3) 05/02/23 03:52
04/30/23
20:21
Sgp-Y-Vdrggmhbwgf Pept [id number]
Physical Exam
Constitutional: No acute distress
EENT: Anicteric
Cardiovascular: Rhythm & rate is regular, Systolic murmur absent and Diastolic murmur present
Respiratory: Respiratory effort normal, Lungs clear to auscul., Wheeze Absent and Crackles Absent
GI: Soft, Distention absent, Non tender and Normal bowel sounds
Neuro/Psych: Alert
Data Reviewed
-
Date of Service: May 03, 2023
--- NOTE | 2023-05-03 08:50 | W.PN.ID1 ---
Date of Service
Date of Service: May 03, 2023
Today's Communication
continue cefepime/levofloxacin
agree with CT surgery evaluation
Assessment / Plan
Relapsed Fever - resolved
Resolved shock - cardiogenic? Less likely Septic
Severe Symptomatic AI
Possible Pneumonia
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
Cirrhosis - unclear if compensated
Pancytopenia
CKD
- blood cultures x2 in progress no growth to date
- picc line without induration, tenderness or drainage
- has PICC
- continue streptococcal coverage through at least 05/07 for endocarditis
- continue cefepime/levofloxacin
- stopped vancomycin
- QTc acceptable
- to complete course of epclusa
- agree with CT surgery evaluation; patient has several indications for AV valve replacement; no objection to replacement from ID perspective, the risks of not replacing the valve from ID perspective also high including embolization (possible
stroke) of large mobile vegetation
- follow clinically
Chief Complaint
-: Fever and Other (sepsis)
Subjective / Review of Systems
afebrile
bp stable
minimal leukocytosis
cr stable
repeat cxr: possible RL base pneumonia
blood cultures remain no growth to date
CTS evaluation for AI
Vital Signs / Physical Exam
Vital Signs
Vital Signs
Temp Pulse Resp BP Pulse Ox
97.7 F 78 23 101/37 95
05/03/23 08:00 05/03/23 06:00 05/03/23 06:00 05/03/23 06:00 05/03/23 06:00
Physical Exam
Constitutional: No Acute Distress and Chronically Ill
Cardiovascular: Regular Rate, S1/S2 and Murmur; Negative Rub
Pulmonary: Clear and Symmetric; Negative Wheezes or Rales
Gastrointestinal: Soft, Non Tender, Non Distended and Normal Bowel Sounds
Skin: Warm, Dry and Rash (petechiae/purpura - chronic); Negative Jaundice
Objective Data
Lab Data
Lab Results
05/03/23 03:50
05/03/23 03:50
PT 14.5 Sec (11.4-14.6) 04/30/23 20:14
INR 1.15 04/30/23 20:14
Estimated Creat Clear 31 ml/min 05/03/23 03:50
Lactic Acid Cancelled 04/30/23 23:45
Total Bilirubin 0.8 mg/dl (0.2-1.3) 05/01/23 03:18
AST 43 U/L (17-59) 05/01/23 03:18
ALT 24 U/L (0-50) 05/01/23 03:18
Alkaline Phosphatase 54 U/L (38-126) 05/01/23 03:18
Most recent labs reviewed.
Micro Results:
04/30/23 21:15 Blood Culture - Preliminary
Blood/Venous No Growth in 48 hours- Final report to follow
04/30/23 20:14 Blood Culture - Preliminary
Blood/Venous No Growth in 48 hours- Final report to follow
05/01/23 03:04 MRSA Screen - Final
Nose No Methicillin Resistant Staphylococcus aureus isolated.
04/30/23 21:15 Influenza Types A & B (TERRELL) - Final
Nasal Swab Negative for Influenza A & B, NAAT
Negative results must be combined with clinical observations
and patient history.
Nucleic Acid Amplification test (NAAT)performed on the
[employer] platform.
[2023-05-03] MEDS: BUMEX 4 MG PO ×2 (08:58→21:23)
[2023-05-03] MEDS: HEPARIN 5000 UNITS SC ×2 (09:00→21:24)
[2023-05-03] MEDS: NEURONTIN 300 MG PO ×2 (09:02→21:23)
[2023-05-03] MEDS: NON-FORMULARY ITEM 1 TABLET PO (09:02)
--- NOTE | 2023-05-03 09:19 | CONSULT.CT ---
Consultation
-
Date/Time Consultation Requested: 05/03/23
Date/Time Consultation Performed: 05/03/23
Requesting Provider: Ok
Performing Provider: Kylie Shepherd PA-C for Dr. Chen
Reason for Consultation: severe AI in setting of IE
Patient History
Physicians
Family Physician: Garfield Kelly
Inpatient Respiratory Therapy Manager: CBC
History of Present Illness
Pt is a very pleasant 72y/oM with PMH untreated Hep C, Hypertension, remote former IVDU (50 yrs ago) and complex recent medical history starting with admission to in 04/04/23. He initially presented with complaints of low back pain, fatigue,
weight loss, and vomiting. Pt had only recently been diagnosed with hep C, and thorough inpatient workup eventually revealed acute anemia, acute kidney injury eventually resulting in need for HD (last HD 1 week ago), cirrhosis (dx with fibroscan),
sepsis/bacteremia with +Bcx Streptococcus bovis. TTE on 04/10 revealed moderate to severe AI with 1cm mobile echodensity, mild-mod TR, moderate to severe MR with preserved LV function with EF 55-60%. Pt underwent EGD 04/12 which revealed reflux
esophagitis without bleeding, NO varices. Pt was then cleared to undergo MAX, but was transferred to [place] [facility] for further care regarding his hepatitis C treatment.
The patient is not the greatest historian in regards to his recent medical events, therefore I spoke with his daughter this morning (Brenda) in regards to recent workup for AVR/MVR at [place]. Per daughter he had MAX and dental clearance
completed at [place]. She did mention throughout his whole workup he did NOT complete an MRI of the spine which was proposed to evaluate source of IE. She felt this may be an important part of his workup since he has been recently complaining of low
back pain and underwent steroid injections x 2 to his low back in January & February of 2022. It sounds like patient was recommended for high risk AVR/MVR at [place], but communication with surgical team was poor and the patient was apprehensive
about proceeding. He eventually was discharged to home around 04/27/23 on IV antibiotics.
He presented again to on 04/30 with complaints of lethargy, no appetite and loss of balance with fever (Tm 101.7) on admission. ID following, Abx have been broadened empirically, cultures have been negative to date. Echo completed 05/02
redemonstrates mobile echodensity on RCC of AV ~1.4x1.1cm with severe AI, mild-mod MR with ?vegetation on posterior leaflet, EF 55-60%. We are asked to evaluate him for AVR/MVR.
On my visit this morning patient offers no complaints, he wants to get up and walk with therapy. He is awake, conversant & appropriate.
Past Medical History
Past Medical History: Other
HTN
Hepatitis C, currently on Epclusa
cirrhosis
anemia
pancytopenia
cryoglobulinemia
recent strep bovis bacteremia (BCx currently negative to date, pt on IV ceftriaxone)
aortic insufficiency/mitral regurgitation
AV infective endocarditis
recent ELLIE on CKD requiring HD, off HD x 1 week
hepatorenal syndrome
Past Surgical History
RUE PICC (current)
R IJ HD cath placed 04/09, now discontinued
renal biopsy 04/09
EGD 04/12
Dental History
per daughter, dental clearance obtained at [facility]--will request records
Social History
Alcohol: None
Drug: Former User (remote IVDA 50 years ago)
Tobacco: Non-Smoker
Personal: Single
Allergies
Allergy/AdvReac Type Severity Reaction Status Date / Time
No Known Allergies Allergy Verified 04/30/23 19:46
Home Medications
Medication Instructions Recorded Confirmed Type
cyclobenzaprine 5 mg tablet 5 mg PO BID PRN muscle spasms/back 04/04/23 04/30/23 History
pain
bumetanide 2 mg tablet 4 mg PO TID Fluid 04/30/23 04/30/23 History
Retention/Swelling
ceftriaxone 2 gram intravenous 2 g IV DAILY Infection 04/30/23 04/30/23 History
solution
gabapentin 300 mg capsule 300 mg PO BID Pain 04/30/23 04/30/23 History
metolazone 5 mg tablet 5 mg PO DAILY Fluid 04/30/23 04/30/23 History
Retention/Swelling
metoprolol tartrate 25 mg tablet 12.5 mg PO BID Blood Pressure 04/30/23 04/30/23 History
oxycodone 5 mg tablet 5 mg PO Q8H PRN severe pain 04/30/23 04/30/23 History
potassium chloride 20 mEq 40 meq PO DAILY Electrolyte 04/30/23 04/30/23 History
tablet,extended release Repletion
sofosbuvir 400 mg-velpatasvir 100 1 tab PO DAILY Hepatitis C 04/30/23 04/30/23 History
mg tablet (Epclusa)
Review of Systems
-
History Source: Patient
General: Reports Fever and Fatigue
HEENT: Denies Visual Changes or Sore Throat
Respiratory: Denies SOB or Cough
Cardiac: Denies Chest Pain, Palpitations or Edema
Abdomen/GI: Denies Abdominal Pain
: Denies Dysuria
Musculoskeletal: Denies Myalgias or Arthralgias
Skin: Reports Rash
Neurological: Denies CVA, TIA or Seizures
Physical Exam
Vital Signs
Temp 97.7 F 05/03/23 08:00
Temp route: Oral 05/03/23 08:00
Pulse 79 05/03/23 08:58
Rhythm: Normal sinus rhythm 05/02/23 20:45
With- First Degree Heart Block, PVC's Monomorphic, Sinus arrhythmia 05/02/23 20:45
Resp Rate 23 05/03/23 06:00
Blood pressure 102/46 05/03/23 08:58
Blood pressure extremity used: Left upper arm 05/01/23 04:17
Position: Lying 05/01/23 04:17
MAP (cuff-Eugene Monitor) 53 05/03/23 06:00
SaO2 95 05/03/23 06:00
Nasal Cannula flow liters per minute 2 05/02/23 22:59
Oxygen Mode of Delivery Room air 05/01/23 20:47
Pulse Ox at Rest 96 05/01/23 09:10
Acceptable pain level during hospitalization? 0 04/30/23 19:46
Can the patient verbally communicate their pain? Yes 05/03/23 02:20
Pain scale rating: Asleep 05/03/23 02:20
Actual Weight 80.8 kg 05/03/23 03:49
Body Mass Index (BMI) 24.9 05/03/23 03:49
Supine- Blood Pressure 100/45 05/01/23 09:10
Supine- Pulse 81 05/01/23 09:10
Sitting- Blood Pressure 105/47 05/01/23 09:10
Sitting- Pulse 82 05/01/23 09:10
Standing- Pulse 84 05/01/23 08:42
Heart rate after activity 84 05/01/23 09:10
Blood pressure after activity 104/40 05/01/23 09:10
Oxygen Saturation with Activity 93 05/01/23 09:10
Labs
05/03/23 03:50
05/03/23 03:50
PT 14.5 Sec (11.4-14.6) 04/30/23 20:14
Ofp-X-Anocsipyuiy Pept 81652 pg/ml 04/30/23 20:21
Urinalysis
Urine Color Yellow 04/30/23 20:14
Urine Clarity Clear (Clear) 04/30/23 20:14
Urine pH 5.0 (5.0-9.0) 04/30/23 20:14
Ur Specific Norvell 1.010 (<1.030) 04/30/23 20:14
Urine Ketones Negative (Negative) 04/30/23 20:14
Ur Occult Blood Reflex 3+ (Negative) A 04/30/23 20:14
Urine Bilirubin Negative (Negative) 04/30/23 20:14
Leukocyte Esterase Rfl Negative (Negative) 04/30/23 20:14
Urine RBC 21-25 /HPF (0-2) A 04/30/23 20:14
Urine WBC (Reflex) None seen /HPF (0-5) 04/30/23 20:14
Ur Squamous Epith Cells 0-2 /LPF (Few) 04/30/23 20:14
Urine Glucose Negative (Negative) 04/30/23 20:14
Urine Albumin (Reflex) Negative (Neg - Trace) 04/30/23 20:14
Exam
General: Well Developed, Well Nourished and No Apparent Distress
HEENT: Normocephalic and Anicteric
Neck: Trachea Midline; Negative Mass
Respiratory: Clear; Negative Wheezes, Crackles or Rhonchi
Cardiac: Regular Rhythm and Murmur
GI: Soft, Non Tender and Non Distended
Rectal: Deferred by Provider
Skin: Warm, Dry and Rash (LLE petechial rash)
Neuro: Nonfocal/Grossly Intact
Extremities: Pulses (Radial & DP 2+ bilaterally); Negative Lower Level Edema
Psych: Calm
Assessment / Plan
-
AV infective endocarditis
recent BCx +strep bovis, 04/30 cx negative to date
severe aortic insufficiency with >1cm mobile echodensity
moderate mitral regurgitation with ?echodensity present post leaflet
paroxysmal atrial fibrillation (no OAC at this time)
hepatitis C
cirrhosis
cryoglobulinemia
pancytopenia/anemia (hgb 8.1 today)
-Complex situation as his multiple comorbidities certainly place him in a high risk category for AVR/MVR. Additionally, patient told me he would not want to be in a situation requiring permanent HD, which may be the case following AVR/MVR. Will
discuss with attending who will assess patient later today. Likely will need to involve family in discussion (daughter Brenda very involved in his care) as well.
Data Reviewed
-
EKG: Report Reviewed by me
Echo: Report Reviewed by me
Radiology: Report Reviewed by me
Ultrasound: Report Reviewed by me
[2023-05-03] MEDS: LOPRESSOR 12.5 MG PO ×2 (09:24→21:24)
--- NOTE | 2023-05-03 10:32 | PN.CDI ---
CDI
- -
CDI:
Physician Documentation Request
Admit Date: 04/30/23 23:13
Dear Doctor Jeri,
Please review the following and provide your response in the progress notes.
Clinical Indicators:
The diagnosis of Sepsis was documented in ID notes but is not consistently noted in subsequent documentation.
Other: On admission Tmax 101.7 ,HR 90, RR 25, WBC 2.9
ID consult ,'Relapsed Fever Sepsis...continue streptococcal coverage through at least 05/07 for endocarditis start vanc/cefepime/levofloxacin...'
Please update the status of sepsis documented by ID:
Sepsis - Resolved
Sepsis still being monitored/treated
Sepsis-ruled out
Other
Use of terms such as suspected, likely, concern for, or probable (associated with a specific diagnosis that is being evaluated, monitored, or treated as if it exists) are acceptable and can be coded in the inpatient setting, when documented at the
time of discharge.
Thank you,
Sarah Baca RN
CDI Specialist
[place] [facility]
Please use your independent medical judgment in providing your response.
--- NOTE | 2023-05-03 10:40 | PN.CDI ---
CDI
- -
CDI:
Physician Documentation Request
Admit Date: 04/30/23 23:13
Dear Doctor Jeri ,
Please review the following and provide your response in the progress notes.
Clinical Indicators:
Pt admitted with relapsed fever /Sepsis /ELLIE
Documented per WOCN panel , 'Sacrum pressure injury stage 2..treatment provided silicone border foam...'
Physician documentation of the type and location of wounds is required for compliant documentation. Based on the above clinical findings and your assessment, please provide the following in your progress note:
1. Location of the ulcer/wound, including laterality.
2. Type (etiology) of ulcer/wound:
- Pressure (decubitus) ulcer
- Non-pressure ulcer
- Other
Use of terms such as suspected, likely, concern for, or probable (associated with a specific diagnosis that is being evaluated, monitored, or treated as if it exists) are acceptable and can be coded in the inpatient setting, when documented at the
time of discharge.
Thank you,
Sarah Baca RN
CDI Specialist
[place] [facility]
Please use your independent medical judgment in providing your response.
*Source: National Pressure Ulcer Advisory Panel (NPUAP)
[2023-05-03] MEDS: LEVAQUIN 750 MG PO (10:51)
--- NOTE | 2023-05-03 10:59 | W.PN.NEPH.PH ---
Today's Communication / Plan
-
cont bumex
increase kcl PO
FR 48 ounces/day
Assessment/Plan
-
Assessment:
ELLIE
Pancytopenia
Hepatitis C (on epclusa)
Hypokalemia
Hypomagnesemia
Hyponatremia
Metabolic alkalosis
Azotemia
Plan
cr seem to stable from recent d/c
noted labs last week from [facility] was 2.4, BUN in 70s
-replete K, change to BID, total 120meq today
cont bumex BID, non oliguric
echo noted, severe AR, mod to severe MR with veg-CT surg consulted
-no HD needs at this time
mild hyponatremia -cont FR 48 ounces/day
-abx pre primary team
BP are soft on low dose BB
anemia, fe sat only 17% but high ferritin will hold iV fe
d/w nursing
-
-
Date of Service: May 03, 2023
CC / HPI / ROS
-
Chief Complaint:
ELLIE
History of Present Illness:
cr stable at 2.3. BP stable
wt decreasing
sodium low at stable 129, k 3.3
Review of Systems:
no cp or sob at rest
feels well today
Labs
-
Labs:
WBC 3.6 10^3/uL (4.8-10.8) L 05/03/23 03:50
RBC 2.62 10^6/uL (4.70-6.10) L 05/03/23 03:50
Hgb 8.1 g/dL (13.0-18.0) L 05/03/23 03:50
Hct 23.5 % (39.0-52.0) L 05/03/23 03:50
Plt Count 118 10^3/uL (130-400) L 05/03/23 03:50
Sodium 129 mmol/L (135-145) L 05/03/23 03:50
Potassium 3.3 mmol/L (3.5-5.1) L 05/03/23 03:50
Chloride 87 mmol/L (98-107) L 05/03/23 03:50
Carbon Dioxide 33 mmol/L (22-30) H 05/03/23 03:50
BUN 97 mg/dl (9-20) H 05/03/23 03:50
Creatinine 2.3 mg/dL (0.7-1.3) H 05/03/23 03:50
eGFR 29.62 05/03/23 03:50
Glucose 125 mg/dl (70-99) H 05/03/23 03:50
Calcium 8.7 mg/dl (8.4-10.2) 05/03/23 03:50
Jmg-J-Ojoiaduhufv Pept 58534 pg/ml 04/30/23 20:21
Albumin 3.1 g/dl (3.5-5.0) L 05/01/23 03:18
Physical Exam
-
Vital Signs:
Vital Signs
Temp Pulse Resp BP Pulse Ox
97.7 F 79 20 106/45 88
05/03/23 08:00 05/03/23 10:00 05/03/23 10:00 05/03/23 10:00 05/03/23 10:00
Cardiovascular:: Regular rate and rhythm (murmur)
Lung Excursion:: Normal (decreased)
Abdomen:: Nontender and Soft
Extremity Edema:: +1: Bilateral: (trace)
Schofield Catheter: No
[2023-05-03] MEDS: CATHFLO/ACTIVASE 2 MG IV (12:03)
[2023-05-03] MEDS: SENOKOT 8.59999999999999964 MG PO ×2 (13:37→21:23)
[2023-05-03] MEDS: MIRALAX 17 GRAMS PO (13:37)
--- NOTE | 2023-05-03 13:59 | W.PN.HOSP.TC ---
Today's Communication/Plan
-
MRI L spine with contrast ordered - with sedation
BRO ok per Renal
Assessment / Plan
Assessment / Plan
Assessment:
Fever/Weakness
Sepsis POA - ongoing treatment
Strep bovis Bacteremia
Aortic Valve Endocarditis
- Last positive BCx were 04/10.�Negative 04/11, 04/12 and at [facility].
- blood cultures here so far negative
- continue Cefepime/Levaquin per ID
- Patient had MAX done at [facility] showing large echo-mobile density on the aortic valve c/w endocarditis.
- Valvuloplasty was discussed, but patient deferred at that time
- now agreeable to CT surgery consultation
- Cardiology following
Acute HFpEF
Moderate to severe aortic regurgitation (echo 04/10/2023)
Moderate to severe mitral regurgitation� (echo 04/10/2023)
- Echo: Moderately dilated LV with normal systolic function and no regional wall motion abnormalities. LV ejection fraction is 55-60% by volumetric assessment. No LVH. Dilated RV with normal systolic function. Biatrial dilation. Thickened aortic
valve with mobile echodensity on at least the RCC, measuring 1.4 cm x 1.1 cm.� Severe aortic regurgitation, PHT of 151 ms. Thickened mitral valve leaflets with possible small vegetation on posterior leaflet. Mild to moderate eccentric mitral
regurgitation. Compared to prior on April 10, 2023, LV is more dilated, AR is now worse and severe from moderate to severe, MR appears mild to moderate from moderate to severe.
- IV Lasix - requires intensive monitoring
Acute on chronic anemia
- follow Hb, monitor for transfusion needs
Parox A. Fib
- continue Metoprolol
- no OAC per Cards currently
ELLIE
Uremia
Hypokalemia
Hyponatremia
- Recently dialysis dependent ELLIE.
- Last HD session was > 1 week ago.
- Renal function has remained stable since that time.
- continue diuretics
- continue KCL
- fluid restriction
- Nephrology following
Chronic Hep C
�- Recently started on Epclusa.
�- Continue current regimen - patient brought medication with him.
Lumbar DDD
- Current symptoms / episode started with low back pain / weakness that began in February 2023.
- Patient underwent LESI x 2 and had significant decline following second injection.
- Some continued / intermittent pain.
- MRI recommended at [facility] to rule out discitis / osteomyelitis but patient declined for fear of MRI.
- MRI contrast with sedation ordered.
Palpable Purpura
Cryoglobulinemia
- ? secondary to Hep C versus bacteremia v other.
- Significantly improved from prior.
- On high-dose steroids briefly for ELLIE - since discontinued.
- Follow for any new / recurrent symptoms.
Sacrum pressure injury stage 2
DVT Prophylaxis: SC Heparin
Code: Full
Anticipated Discharge: > 48 hours
Subjective/Interval History
-
Date of Service: May 03, 2023
requesting bowel regimen
no CP or SOB, palps
no fevers
Objective Data
-
Labs:
Laboratory Results
05/03/23
03:50
WBC 3.6 L
Hgb 8.1 L
Hct 23.5 L
Plt Count 118 L
Sodium 129 L
Potassium 3.3 L
Chloride 87 L
Carbon Dioxide 33 H
BUN 97 H
Creatinine 2.3 H
Glucose 125 H
Calcium 8.7
Vital Signs:
Vital Signs
Temp Pulse Resp BP Pulse Ox
98.3 F 79 20 106/45 88
05/03/23 11:00 05/03/23 10:00 05/03/23 10:00 05/03/23 10:00 05/03/23 10:00
I&O
02/28/24 02/29/24 03/01/24
06:59 06:59 06:59
Intake Total 2550 / 2550 760 / 760 240 / 240
Output Total 2550 / 2550 1950 / 1950
Balance 0 / 0 -1190 / -1190 240 / 240
Physical Exam
-
General: No Apparent Distress
Respiratory: Decreased Breath Sounds
Cardiac: Regular Rhythm and S1/S2
GI: Soft
Musculoskeletal: Edema, Right Lower Extrem and Edema, Left Lower Extrem
Neuro: AO x 3
Psych: Calm
Data Reviewed
-
Total Time Spent with Patient (in minutes): 51
Labs: Labs Reviewed by me
[2023-05-03] MEDS: TYLENOL 650 MG PO (14:08)
--- NOTE | 2023-05-03 14:58 | VATNOTE ---
Call received from pt's PCN that PICC line wasn't flushing. Upon assessment, neither port of DL PICC were able to be flushed. Cath alba ordered by hospitalist and administered. After 2 hr of instilling in lumen, PICC was able to be flushed and +BR on
both ports. Will continue to monitor.
[2023-05-04] VITALS (21 sets, daily range): BP systolic 83–104; BP diastolic 29–63; PULSE 73; O2SAT 96–97; BMI 24.8
[2023-05-04 04:35] LABS: % Basophils 0.3 % (0-2); % Eosinophils 2.5 % (0-6); % Immature Granulocytes 0.3 % (0-0.5); % Monocytes 17.5 % (1.7-9.3); % Neutrophils 58.4 % (42.2-75.2); Absolute Eosinophils 0.1 10^3/uL (0-0.7); Absolute Lymphocytes 0.7 10^3/uL (1.2-3.4); Absolute Monocytes 0.6 10^3/uL (0.1-0.6); Absolute Neutrophils 1.8 10^3/uL (1.4-6.5); Hematocrit 23.5 % (39.0-52.0); Hemoglobin 8.1 g/dL (13.0-18.0); Mean Corp Hgb Conc. 34.5 g/dL (33.0-37.0); Mean Corpuscular Hgb 30.1 pg (27.0-31.0); Mean Corpuscular Volume 87.4 fL (80.0-94.0); Mean Platelet Volume 11.8 fL (7.4-10.4); Nucleated Red Blood Cells % 0 % (-); Platelet Count 122 10^3/uL (130-400); Red Blood Cell Count 2.69 10^6/uL (4.70-6.10); Red Cell Dist. Width 19.2 % (11.5-14.5); White Blood Cell Count 3.1 10^3/uL (4.8-10.8)
--- NOTE | 2023-05-04 04:35 | PTCARENOTE ---
MICA Miles made aware of soft BPs, pt asymptomatic at this time. Current BP 95/45 map 61. no new orders at this time
[2023-05-04 05:00] LABS: Blood Urea Nitrogen 100 mg/dl (9-20); Calcium 8.8 mg/dl (8.4-10.2); Carbon Dioxide 33 mmol/L (22-30); Chloride 90 mmol/L (98-107); Estimated Creatinine Clearance 28 ml/min; Glucose 126 mg/dl (70-99); Potassium 3.8 mmol/L (3.5-5.1); Sodium 129 mmol/L (135-145); eGFR 25.57
--- NOTE | 2023-05-04 07:36 | W.PN.CD ---
Addendum entered and electronically signed by Abhijit Euceda MD 05/04/23 16:40:
Patient now interested in hospice, which is reasonable
Please call us back with any questions.
Original Note:
Today's Communication / Plan
-
- Consulted CTS - attending input is pending. Mr. Mayer today is unsure if he would accept surgery.
- Records requested yesterday (fax of request is on the chart)
Impression / Plan
-
Impression: 72M with recent aortic valve endocarditis in the setting of strep bovis bacteremia (last month) causing severe symptomatic AI - evaluated at [facility] and deferred CT Surgery (very high risk)
Severe AI - worse on follow up echocardiogram
- medical management unlikely to be successful in the medium to fci
- continue diuretic as possible
- Consulted CTS - attending input is pending. Mr. Mayer today is unsure if he would accept surgery.
- Records requested yesterday (fax of request is on the chart)
Paroxysmal atrial fibrillation
-He is in and out of atrial fibrillation
-Continue metoprolol tartrate 12.5mg BID, BP will not support further increase
-Oral Anticoagulation: None, at this time, see prior notes
-[id number]: at least 1 (age 65-74) and likely 2 (likely heart failure)
Heart failure
- Echo with severe AI and LV dilation
- diuretic
Severe aortic regurgitation
Cryoglobulinemia
Severe CKD, briefly on hemodialysis, last hemodialysis was greater than 1 week ago, nephrology following
Hepatitis C, chronic, recently started on Epclusa
Anemia, chronic
Prior IVDA
Anemia
He is critically ill 34 minutes
Subjective: No CP, dyspnea, or palpitations.
Physical Exam
Vital Signs/Labs
Vital Signs
Temp Pulse Resp BP Pulse Ox
36.8 C 71 16 99/50 96
05/04/23 03:39 05/04/23 06:00 05/04/23 06:00 05/04/23 06:00 05/04/23 06:00
05/03/23 05/04/23 05/05/23
06:59 06:59 06:59
Actual Weight 178 lb 2.136 oz 177 lb 14.609 oz
05/04/23 04:07
05/04/23 04:07
PT 14.5 Sec (11.4-14.6) 04/30/23 20:14
INR 1.15 04/30/23 20:14
Magnesium 2.0 mg/dl (1.6-2.3) 05/02/23 03:52
04/30/23
20:21
Iln-Z-Xsyrmljamix Pept [id number]
Physical Exam
Constitutional: No acute distress
EENT: Anicteric and Moist mucous membranes
Cardiovascular: Rhythm & rate is regular, Pedal edema is absent, Systolic murmur absent and Diastolic murmur present
Respiratory: Respiratory effort normal and Rhonchi Present
GI: Soft, Distention absent, Non tender and Normal bowel sounds
Neuro/Psych: Alert
Data Reviewed
-
Date of Service: May 04, 2023
--- NOTE | 2023-05-04 08:50 | W.PN.ID1 ---
Date of Service
Date of Service: May 04, 2023
Today's Communication
- continue cefepime day 4
- stop levofloxacin
would agree with hospice if thats patients wish and he understands the implications of the decision
Assessment / Plan
Relapsed Fever - resolved
Resolved shock - cardiogenic? Less likely Septic
Severe Symptomatic AI
Possible Pneumonia
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
Cirrhosis - unclear if compensated
Pancytopenia
CKD
'what happens, happens, I dont want surgery I just want to go home with pain meds' notified hospitalist, cardiology
- blood cultures x2 in progress no growth to date
- picc line without induration, tenderness or drainage
- continue streptococcal coverage through at least 05/07 for endocarditis - was on CTX outpatient, changed when presented in shock
- continue cefepime day 4
- stop levofloxacin
- QTc acceptable
- to complete course of epclusa
- agree with CT surgery evaluation; patient has several indications for AV valve replacement; no objection to replacement from ID perspective, the risks of not replacing the valve from ID perspective also high including embolization of large mobile
vegetation
- follow clinically
would agree with hospice if thats patients wish and he understands the implications of the decision
Chief Complaint
-: Fever and Other (sepsis)
Subjective / Review of Systems
afebrile
bp stable
slight decline in leukocyte count
cr increased today
cultures remain negative
'what happens, happens, I dont want surgery I just want to go home with pain meds' notified hospitalist
Vital Signs / Physical Exam
Vital Signs
Vital Signs
Temp Pulse Resp BP Pulse Ox
97.0 F 71 16 99/50 96
05/04/23 07:58 05/04/23 06:00 05/04/23 06:00 05/04/23 06:00 05/04/23 06:00
Physical Exam
Constitutional: No Acute Distress
Cardiovascular: Regular Rate and S1/S2; Negative Murmur or Rub
Pulmonary: Clear and Symmetric; Negative Wheezes or Rales
Gastrointestinal: Soft, Non Tender, Non Distended and Normal Bowel Sounds
Skin: Warm and Dry; Negative Rash or Jaundice
Objective Data
Lab Data
Lab Results
05/04/23 04:07
05/04/23 04:07
PT 14.5 Sec (11.4-14.6) 04/30/23 20:14
INR 1.15 04/30/23 20:14
Estimated Creat Clear 28 ml/min 05/04/23 04:07
Lactic Acid Cancelled 04/30/23 23:45
Total Bilirubin 0.8 mg/dl (0.2-1.3) 05/01/23 03:18
AST 43 U/L (17-59) 05/01/23 03:18
ALT 24 U/L (0-50) 05/01/23 03:18
Alkaline Phosphatase 54 U/L (38-126) 05/01/23 03:18
Most recent labs reviewed.
Micro Results:
04/30/23 21:15 Blood Culture - Preliminary
Blood/Venous No Growth in 72 hours- Final report to follow
04/30/23 20:14 Blood Culture - Preliminary
Blood/Venous No Growth in 72 hours- Final report to follow
05/01/23 03:04 MRSA Screen - Final
Nose No Methicillin Resistant Staphylococcus aureus isolated.
04/30/23 21:15 Influenza Types A & B (TERRE[facility]) - Final
Nasal Swab Negative for Influenza A & B, NAAT
Negative results must be combined with clinical observations
and patient history.
Nucleic Acid Amplification test (NAAT)performed on the
[employer] platform.
Care Review
Plan reviewed with: Physician (Dr Wilcox)
[2023-05-04] MEDS: MIRALAX 17 GRAMS PO (09:21)
[2023-05-04] MEDS: NEURONTIN 300 MG PO ×2 (09:21→21:29)
[2023-05-04] MEDS: HEPARIN 5000 UNITS SC ×2 (09:21→21:29)
[2023-05-04] MEDS: KCL 40 MEQ PO (09:23)
[2023-05-04] MEDS: LOPRESSOR 12.5 MG PO (09:23)
[2023-05-04] MEDS: BUMEX 4 MG PO ×2 (09:23→21:28)
[2023-05-04] MEDS: SENOKOT 8.59999999999999964 MG PO ×2 (09:25→21:29)
--- NOTE | 2023-05-04 09:28 | PTCARENOTE ---
Rec'd pt this AM. Pt states he does not want MRI. He wants to discuss hospice as an option. Notified Dr. Wilcox.Hospice will be consulted.
--- NOTE | 2023-05-04 09:50 | W.PN.CT ---
Addendum entered and electronically signed by MICA Olson 05/04/23 10:18:
Original Note:
Today's Communication / Plan
-
Patient seen this AM. He stated that he is concerned about requiring HD post-operatively, doesn't want the MRI to assess his back/spine, and that he wants to go home on hospice. He also stated that 'If I drop in a week or a year, I'm ok with
it'. I told him that his decision is understandable and he would be considered high risk and could likely require dialysis post-op. He expressed understanding and I offered to come back when his daughter comes in to discuss his decision. Consult
inpatient hospice and palliative care.
Assessment / Plan
-
#Aortic insufficiency
- Continue Lasix as able
- Patient stated he did not want CT surgery
- Case discussed with Dr. Almazan
- Rec consult to hospice and palliative care
- CT surg to sign off. Please re-consult as needed.
Discussed patient care with: Cardiology and Nursing
Subjective
Procedure
CT surgery consulted for Possible MVR/AVR
-
Date of Service: May 04, 2023
Objective Data
-
Lab Results
05/04/23 04:07
05/04/23 04:07
PT 14.5 Sec (11.4-14.6) 04/30/23 20:14
INR 1.15 04/30/23 20:14
Vital Signs
Vital Signs
Temp Pulse Resp BP Pulse Ox
97.0 F 76 16 95/46 96
05/04/23 07:58 05/04/23 09:23 05/04/23 06:00 05/04/23 09:23 05/04/23 06:00
CT Intake/Output/Weight
05/03/23 05/04/2305/03/24
18:59 06:59 18:59
Intake Total 720 / 720
Output Total 1000 / 1000 650 / 650
Balance 720 / -280 -1000 / -280 -650 / -650
SaO2: 96
Physical Exam
-
General: AOx3
Cardiovascular: Murmur
Extremities: Edema +2
Data Reviewed
-
Medications: Active Meds Reviewed
--- NOTE | 2023-05-04 10:13 | CM ---
Addendum entered by Shabana Alvarez RN 05/04/23 13:43:
Spoke with [facility]; the patient will be going home tomorrow with Hospice with daughter transporting by car. They do not want hospital bed and [facility] said they do not need to wait for other equipment to be delivered.
Met with patient and daughter again who are in agreement with d/c tomorrow with Hospice, with daughter transporting. IMM completed.
Plan home tomorrow with Hospice, with family transporting.
Addendum entered by Shabana Alvarez RN 05/04/23 12:47:
Spoke with MICA Ortega; she just met with patient who is clear he is declining CV surgery in favor of hospice.
Met with patient and daughter Brenda; discussed hospice philosophy & benefits. The patient's questions were related to frequency of nurse visits, and if he would be continuing on IV Abx at home- told him doubtful on IV Abx and hospice nurse would
be able to provide more definitive info on allowed meds with hospice, and he was satisfied with this answer. Patient determined to go home with hospice, sit in the sun and enjoy his family & animals. He made statements indicating he is accepting
his current condition and Daughter tearful but in agreement with home with hospice, with multiple family members as caregivers for now. Offered hospice agency choices and they agreed to meeting with Hospice Nurse. Offered [facility] Skills [facility] and
patient agreed.
Spoke with [facility], nurse [facility] and hospice referral placed. She will meet with the patient today.
Spoke with Chaplain Philly; she will meet with the patient.
Plan follow up after seen by Hospice.
Original Note:
Patient with Dx Fever / Weakness, Strep bovis Bacteremia, Aortic Valve Endocarditis. PICC. IV Abx. PT & OT recommend skilled rehab.
CM Consult: Hospice
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 Explained hospice philosophy & benefits. Patient and daughter Brenda agree to meet around noon today to discuss surgery vs
hospice. They agree to meet with CM today after that.
Plan meet with patient & daughter today about hospice.
[2023-05-04] MEDS: NON-FORMULARY ITEM 1 TABLET PO (10:21)
[2023-05-04] MEDS: MAXIPIME 1000 MG IV (12:52)
[2023-05-04] MEDS: STERILE WATER FOR INJECTION 10 ML IV (12:52)
--- NOTE | 2023-05-04 13:38 | W.PN.NEPH.PH ---
Today's Communication / Plan
-
hospice eval
Assessment/Plan
-
Assessment:
ELLIE
Pancytopenia
Hepatitis C (on epclusa)
Hypokalemia
Hypomagnesemia
Hyponatremia
Metabolic alkalosis
Azotemia
severe AR/MR
Plan
follow BMP
I discussed with pt at great length potential of CT surgery, while clearly there are high risks to surgery, including dialysis, not repairing the valve will ultimately result in ESRD as well, and diaylsis is not something he wants.
He would prefer hospice to maximize quality of life at this time
high risk situation
-
-
Date of Service: May 04, 2023
CC / HPI / ROS
-
Chief Complaint:
ELLIE
History of Present Illness:
cr stable at 2.6. BP stable
sodium low at stable 129
k up to 3.8
Review of Systems:
no cp or sob at rest
feels well today
Labs
-
Labs:
WBC 3.1 10^3/uL (4.8-10.8) L 05/04/23 04:07
RBC 2.69 10^6/uL (4.70-6.10) L 05/04/23 04:07
Hgb 8.1 g/dL (13.0-18.0) L 05/04/23 04:07
Hct 23.5 % (39.0-52.0) L 05/04/23 04:07
Plt Count 122 10^3/uL (130-400) L 05/04/23 04:07
Sodium 129 mmol/L (135-145) L 05/04/23 04:07
Potassium 3.8 mmol/L (3.5-5.1) 05/04/23 04:07
Chloride 90 mmol/L (98-107) L 05/04/23 04:07
Carbon Dioxide 33 mmol/L (22-30) H 05/04/23 04:07
BUN 100 mg/dl (9-20) H 05/04/23 04:07
Creatinine 2.6 mg/dL (0.7-1.3) H 05/04/23 04:07
eGFR 25.57 05/04/23 04:07
Glucose 126 mg/dl (70-99) H 05/04/23 04:07
Calcium 8.8 mg/dl (8.4-10.2) 05/04/23 04:07
Gzb-H-Pyjfffpstcg Pept 17584 pg/ml 04/30/23 20:21
Albumin 3.1 g/dl (3.5-5.0) L 05/01/23 03:18
Physical Exam
-
Vital Signs:
Vital Signs
Temp Pulse Resp BP Pulse Ox
97.0 F 72 17 84/63 96
05/04/23 07:58 05/04/23 10:00 05/04/23 10:00 05/04/23 10:00 05/04/23 10:01
Cardiovascular:: Regular rate and rhythm
Respiratory:: Bilateral: Coarse
Lung Excursion:: Normal
Abdomen:: Nontender and Soft
Bowel Sounds:: Normal
Extremity Edema:: +1: Bilateral:
--- NOTE | 2023-05-04 14:08 | HOSPNOTE ---
Spoke with patient and daughter and in agreement with hospice services. Equipment will be ordered and daughter will transport patient home. Attending and case management aware of plan. Once patient arrives home patient will be admitted onto hospice
services.
--- NOTE | 2023-05-04 16:04 | W.PN.HOSP.TC ---
Today's Communication/Plan
-
home hospice in 24 hours
Assessment / Plan
Assessment / Plan
Assessment:
Fever/Weakness
Sepsis POA - ongoing treatment
Strep bovis Bacteremia
Aortic Valve Endocarditis
- Last positive BCx were 04/10.�Negative 04/11, 04/12 and at [facility].
- blood cultures here so far negative
- dc on Cefdinir 300mg daily until 05/07
- Patient had MAX done at [facility] showing large echo-mobile density on the aortic valve c/w endocarditis.
- Valvuloplasty was discussed, but patient deferred at that time at [facility]; now declining here due to concern for becoming HD dependant, therefore has agreed for hospice care.
Acute HFpEF
Moderate to severe aortic regurgitation (echo 04/10/2023)
Moderate to severe mitral regurgitation� (echo 04/10/2023)
- Echo: Moderately dilated LV with normal systolic function and no regional wall motion abnormalities. LV ejection fraction is 55-60% by volumetric assessment. No LVH. Dilated RV with normal systolic function. Biatrial dilation. Thickened aortic
valve with mobile echodensity on at least the RCC, measuring 1.4 cm x 1.1 cm.� Severe aortic regurgitation, PHT of 151 ms. Thickened mitral valve leaflets with possible small vegetation on posterior leaflet. Mild to moderate eccentric mitral
regurgitation. Compared to prior on April 10, 2023, LV is more dilated, AR is now worse and severe from moderate to severe, MR appears mild to moderate from moderate to severe.
- PO Lasix at discharge for symptomat management on hospice
Acute on chronic anemia
- follow Hb, monitor for transfusion needs
Parox A. Fib
- continue Metoprolol
- no OAC per Cards currently
ELLIE
Uremia
Hypokalemia
Hyponatremia
- Recently dialysis dependent ELLIE.
- Last HD session was > 1 week ago.
- Renal function has remained stable since that time.
- continue diuretics
- continue KCL
- fluid restriction
- Nephrology following
Chronic Hep C
�- Recently started on Epclusa.
�- Continue current regimen - patient brought medication with him.
Lumbar DDD
- Current symptoms / episode started with low back pain / weakness that began in February 2023.
- Patient underwent LESI x 2 and had significant decline following second injection.
- Some continued / intermittent pain.
Palpable Purpura
Cryoglobulinemia
- ? secondary to Hep C versus bacteremia v other.
- Significantly improved from prior.
- On high-dose steroids briefly for ELLIE - since discontinued.
- Follow for any new / recurrent symptoms.
Sacrum pressure injury stage 2
DVT Prophylaxis: SC Heparin
Code: Full
Dispo: hospice @ home dc tomorrow
Anticipated Discharge: Within 24 hours
Subjective/Interval History
-
Date of Service: May 04, 2023
patient has decided hospice with plan for home tomorrow
Objective Data
-
Labs:
Laboratory Results
05/04/23
04:07
WBC 3.1 L
Hgb 8.1 L
Hct 23.5 L
Plt Count 122 L
Sodium 129 L
Potassium 3.8
Chloride 90 L
Carbon Dioxide 33 H
BUN 100 H
Creatinine 2.6 H
Glucose 126 H
Calcium 8.8
Vital Signs:
Vital Signs
Temp Pulse Resp BP Pulse Ox
97.0 F 72 17 84/63 96
05/04/23 07:58 05/04/23 10:00 05/04/23 10:00 05/04/23 10:00 05/04/23 10:01
I&O
05/03/23 05/04/23 05/05/23
06:59 06:59 06:59
Intake Total 760 / 760 720 / 720
Output Total 1950 / 1950 1000 / 1000 650 / 650
Balance -1190 / -1190 -280 / -280 -650 / -650
Physical Exam
-
General: No Apparent Distress
HEENT: Normocephalic and Atraumatic
Respiratory: Rales
Cardiac: Regular Rhythm and S1/S2
GI: Soft
Neuro: AO x 3
Psych: Calm
Data Reviewed
-
Total Time Spent with Patient (in minutes): 41
Labs: Labs Reviewed by me
[2023-05-04] MEDS: ROXICODONE 5 MG PO (18:16)
[2023-05-04] MEDS: LOPRESSOR PO (21:30)
[2023-05-05] VITALS: BP 100/39
[2023-05-05] MEDS: STERILE WATER FOR INJECTION 10 ML IV (00:43)
[2023-05-05] MEDS: MAXIPIME 1000 MG IV (00:43)
[2023-05-05 02:00] VITALS: BP 88/41
[2023-05-05] MEDS: ROXICODONE 5 MG PO ×2 (03:18→09:19)
[2023-05-05 04:00] VITALS: BP 99/39
[2023-05-05 05:58] LABS: Hematocrit 24.3 % (39.0-52.0); Hemoglobin 8.3 g/dL (13.0-18.0); Mean Corp Hgb Conc. 34.2 g/dL (33.0-37.0); Mean Corpuscular Hgb 30.7 pg (27.0-31.0); Mean Platelet Volume 11.7 fL (7.4-10.4); Platelet Count 127 10^3/uL (130-400); Red Cell Dist. Width 18.9 % (11.5-14.5); White Blood Cell Count 2.5 10^3/uL (4.8-10.8)
[2023-05-05 06:00] VITALS: BP 98/45; BMI 25.7
[2023-05-05 06:19] LABS: Blood Urea Nitrogen 107 mg/dl (9-20); Calcium 8.7 mg/dl (8.4-10.2); Carbon Dioxide 34 mmol/L (22-30); Chloride 89 mmol/L (98-107); Estimated Creatinine Clearance 27 ml/min; Glucose 119 mg/dl (70-99); Potassium 3.4 mmol/L (3.5-5.1); Sodium 131 mmol/L (135-145); eGFR 24.43
[2023-05-05 08:22] VITALS: BP 97/42
[2023-05-05] MEDS: SENOKOT 8.59999999999999964 MG PO (08:23)
[2023-05-05] MEDS: NON-FORMULARY ITEM 1 TABLET PO (08:23)
[2023-05-05] MEDS: KCL 40 MEQ PO ×2 (08:23→10:34)
[2023-05-05] MEDS: BUMEX PO ×2 (08:23→08:29)
[2023-05-05] MEDS: HEPARIN 5000 UNITS SC (08:23)
[2023-05-05] MEDS: NEURONTIN 300 MG PO (08:23)
[2023-05-05] MEDS: MIRALAX 17 GRAMS PO (08:23)
[2023-05-05] MEDS: LOPRESSOR PO (08:29)
[2023-05-05 08:47] LABS: Anisocytosis 1+; Band Neutrophils 0 % (0-3); Eosinophils 1 % (0-6); Hypochromasia 1+; Lymphocytes 40 % (20-51); Monocytes 17 % (2-9); Normal RBC Morphology No; Platelets Checked Yes; Polychromasia 1+; Segmented Neutrophils 42 % (42-75)
[2023-05-05 08:48] LABS: Ovalocytes 1+; Total Cells Counted 100
--- NOTE | 2023-05-05 09:55 | W.PN.NEPH.PH ---
Today's Communication / Plan
-
K
Assessment/Plan
-
Assessment:
ELLIE
Pancytopenia
Hepatitis C (on epclusa)
Hypokalemia
Hypomagnesemia
Hyponatremia
Metabolic alkalosis
Azotemia
severe AR/MR
Plan
replete K
hospice
-
-
Date of Service: May 05, 2023
CC / HPI / ROS
-
Chief Complaint:
ELLIE
History of Present Illness:
cr stable at 2.7. BP stable
sodium low at stable 131
k low at 3.4
Review of Systems:
no cp or sob at rest
feels well today
Labs
-
Labs:
WBC 2.5 10^3/uL (4.8-10.8) L 05/05/23 05:41
RBC 2.70 10^6/uL (4.70-6.10) L 05/05/23 05:41
Hgb 8.3 g/dL (13.0-18.0) L 05/05/23 05:41
Hct 24.3 % (39.0-52.0) L 05/05/23 05:41
Plt Count 127 10^3/uL (130-400) L 05/05/23 05:41
Sodium 131 mmol/L (135-145) L 05/05/23 05:41
Potassium 3.4 mmol/L (3.5-5.1) L 05/05/23 05:41
Chloride 89 mmol/L (98-107) L 05/05/23 05:41
Carbon Dioxide 34 mmol/L (22-30) H 05/05/23 05:41
BUN 107 mg/dl (9-20) H* 05/05/23 05:41
Creatinine 2.7 mg/dL (0.7-1.3) H 05/05/23 05:41
eGFR 24.43 05/05/23 05:41
Glucose 119 mg/dl (70-99) H 05/05/23 05:41
Calcium 8.7 mg/dl (8.4-10.2) 05/05/23 05:41
Ngk-U-Wsdqvhwqdnn Pept 61304 pg/ml 04/30/23 20:21
Albumin 3.1 g/dl (3.5-5.0) L 05/01/23 03:18
Physical Exam
-
Vital Signs:
Vital Signs
Temp Pulse Resp BP Pulse Ox
98.2 F 77 16 97/42 97
05/05/23 07:00 05/05/23 08:29 05/05/23 06:00 05/05/23 08:29 05/05/23 03:20
Cardiovascular:: Regular rate and rhythm
Respiratory:: Bilateral: Coarse
Lung Excursion:: Normal
Abdomen:: Nontender and Soft
Bowel Sounds:: Normal
Extremity Edema:: None: Bilateral:
--- NOTE | 2023-05-05 10:34 | PTCARENOTE ---
right picc dc'd without difficulty, no bleeding noted, 45cm tcl, pt for home dc. pt without complaints, resting
--- NOTE | 2023-05-05 10:57 | CM ---
Rosa spoke to Marisol Floyd at [facility]. They are prepared to sign patient on. ROSA spoke to RN. Family will come to cloth picker patient at 10:30. Marisol updated on time for d/c today.
ROSA gave Fax for [facility] [phone] to ammunition officer.
--- NOTE | 2023-05-05 11:07 | PTCARENOTE ---
Patient discharged to home with daughter. Patient transport took patient to discharge area via wheel chair. Patient left with all known belongings and home medication Epclusa. Discharge instructions reviewed and all questions answered.
--- NOTE | 2023-05-06 09:55 | W.DS.TRANS ---
DC Summary - Grid Trimmer
-
Discharge Instructions:
Sleep Apnea Risk Intermediate
Discharge Diagnosis/Procedures endocarditis, aortic valve with valve
insufficiency, heart failure acute, ELLIE
Diet Regular,As tolerated,No restrictions
Activity As tolerated
Bathing Restrictions None
Other Services Hospice
Instructions:
Stand-Alone Forms:
Changes to Home Medications: No
Discharge Medications:
DC Medications w/original date entered in [facility]
sofosbuvir 400 mg-velpatasvir 100 mg tablet (Epclusa) 1 tab PO DAILY Hepatitis C 04/30/23
bumetanide 2 mg tablet 4 mg PO BID Fluid Retention/Swelling #60 tabs 05/04/23
cefdinir 300 mg capsule 300 mg PO DAILY #5 caps 05/04/23
gabapentin 300 mg capsule 300 mg PO BID Pain #60 caps 05/04/23
metoprolol tartrate 25 mg tablet 12.5 mg PO BID Blood Pressure #60 tabs 05/04/23
oxycodone 5 mg tablet 5 mg PO Q8H PRN severe pain #60 tabs 05/04/23
potassium chloride 20 mEq tablet,extended release 40 meq PO DAILY Electrolyte Repletion #30 tabs 05/04/23
Home Medication Changes
Pending Results: No
Total time spent discharging patient (in min): 41
== END 2023-05-05 11:20 | disposition hospice, home (50) | DRG 871 ==
LOC: IMU 23:13
PROVIDERS: Emergency Medicine; Internal Medicine; ADMITTING PHYSICIAN Hospitalist; ATTENDING PHYSICIAN Internal Medicine; CONSULT PHYSICIAN Internal Medicine Cardiovascular Disease; CONSULT PHYSICIAN Specialist; EMERGENCY PHYSICIAN Emergency Medicine; FAMILY PHYSICIAN Family Medicine; OTHER PHYSICIAN Student in an Organized Health Care Education/Training Program; OTHER PHYSICIAN Thoracic Surgery (Cardiothoracic Vascular Surgery)
DX: A40.8 Other streptococcal sepsis (principal); I50.31 Acute diastolic (congestive) heart failure; N18.6 End stage renal disease; N17.0 Acute kidney failure with tubular necrosis; J18.9 Pneumonia, unspecified organism; I13.2 Hypertensive heart and chronic kidney disease with heart failure and with stage 5 chronic kidney disease, or end stage renal disease; D61.818 Other pancytopenia; E87.1 Hypo-osmolality and hyponatremia; E87.3 Alkalosis; I08.0 Rheumatic disorders of both mitral and aortic valves; E83.42 Hypomagnesemia; I48.0 Paroxysmal atrial fibrillation; B18.2 Chronic viral hepatitis C; F11.91 Opioid use, unspecified, in remission; E87.6 Hypokalemia; D89.1 Cryoglobulinemia; L89.152 Pressure ulcer of sacral region, stage 2; I95.9 Hypotension, unspecified; K74.60 Unspecified cirrhosis of liver; M51.36 Other intervertebral disc degeneration, lumbar region; Z11.52 Encounter for screening for COVID-19; Z99.2 Dependence on renal dialysis; Z86.010 Personal history of colon polyps
CPT/HCPCS: 93308; 51702; 51798; 71045; 71046; 76705; 80048; 80053; 80202; 81003; 81015; 82248; 82607; 82728; 82746; 83540; 83550; 83605; 83735; 83880; 85025; 85027; 85610; 86850; 86900; 86901; 87040; 87070; 87502; 87811; 93005; 93321; 93325; 93970; 96360; 97163; 97167; 97530; 97535; 99285; J2997